=== PATIENT | female | born 1960 | race African-American/Black ===

== ENCOUNTER 2020-06-22 13:51 | Outpatient (REF) | payer OTHER, SELFPAY ==
--- NOTE | ~2020-06-22 | MM_ITS ---
EXAMINATION: MM DIAGNOSTIC DIGITAL BREAST TOMOSYNTHESIS, BILATERAL CLINICAL INFORMATION: Due for yearly. Prior mammography had finding on right for recall, not performed due to other health issues at that time. Age 60, no known family history breast cancer. The lifetime risk of breast cancer based on the Tyrer-Cuzick Model is 5%. COMPARISON: Mammography: 02/15/2019 (BI-RADS 0), outside mammography 08/07/2017 ([facility]). TECHNIQUE: Digital breast tomosynthesis is performed in both the craniocaudal and mediolateral oblique views along with computer-aided detection (CAD). Synthesized 2D images are generated from the tomosynthesis. Additional bilateral CC and additional bilateral MLO views are provided. FINDINGS: The breasts are almost entirely fatty (ACR BI-RADS breast composition Category a). Background stromal and fibroglandular densities are unremarkable. There are scattered bilateral round and rim calcifications again seen. There is no developing density or interval mass or architectural abnormality. The finding anterior upper outer right breast noted on prior exam 2019 is no longer demonstrated. This finding was suspected to possibly represent sequela from trauma at time of prior exam. There is no skin thickening or coarsening of the Ajay's ligaments. The axilla are unremarkable. Results are discussed with the patient at time of visit. MM/MM tomosynthesis diagnostic BI IMPRESSION: 1. No mammographic evidence of malignancy. 2. The finding anterior upper outer right breast prompting recall in 2019 is no longer demonstrated. ASSESSMENT: BI-RADS 2: Benign RECOMMENDATION: Routine annual mammography screening. This patient's information was entered into a reminder system with a target due date for their next mammogram.
== END 2020-06-22 13:52 | disposition home or self-care (01) ==
LOC: HO.MAMMO 13:51
PROVIDERS: Visit Provider Internal Medicine
DX: Z12.31 Encounter for screening mammogram for malignant neoplasm of breast (principal)
CPT/HCPCS: 77062; 77066

== ENCOUNTER 2021-07-03 07:32 | Outpatient (REF) | payer OTHER, SELFPAY ==
--- NOTE | ~2021-07-03 | MM_ITS ---
EXAMINATION: MM SCREENING DIGITAL BREAST TOMOSYNTHESIS, BILATERAL CLINICAL INFORMATION: Screening. Asymptomatic. The lifetime risk of breast cancer based on the Tyrer-Cuzick Model is 5%. COMPARISON: Mammography: 06/22/2020, 02/15/2019; outside exam 08/07/2017 ([facility] TECHNIQUE: Digital breast tomosynthesis is performed in both the craniocaudal and mediolateral oblique views along with computer-aided detection (CAD). Synthesized 2D images are generated from the tomosynthesis. Additional views are provided: Right CC x2, left CC. FINDINGS: There are scattered areas of fibroglandular density (ACR BI-RADS breast composition Category b). There are no significant masses, abnormal calcifications, or other abnormalities. Parenchymal pattern is similar to prior studies. No developing density or architectural abnormality. There are scattered benign round and rim calcifications again seen. The axilla are unremarkable. MM/MM tomosynthesis screening BI IMPRESSION: No mammographic evidence of malignancy. ASSESSMENT: BI-RADS 1: Negative RECOMMENDATION: Routine annual mammography screening. This patient's information was entered into a reminder system with a target due date for their next mammogram.
--- NOTE | ~2021-07-03 | MM_ITS ---
EXAMINATION: BONE DENSITOMETRY CLINICAL INDICATION: Menopause. COMPARISON: None (current study represents initial baseline exam). TECHNIQUE: Using a [employer] DXA System (software version: 13.1) manufactured by [employer], dual-energy x-ray absorptiometry was performed of the lumbar spine and left hip. The images are of good technical quality. Summary results are attached. FINDINGS: AP SPINE L1-L2 (excluding L3 and L4): The data of L1-L4 has been changed to exclude the L3 and L4 vertebral bodies, because hardware at these levels may cause overestimation of lumbar spine density. BMD 1.153 g/cm2, Z-score -0.8, T-score -0.1, normal. LEFT FEMUR, NECK: BMD 0.709 g/cm2, Z-score -2.8, T-score -2.4, osteopenia. LEFT FEMUR, TOTAL: BMD 0.708 g/cm2, Z-score -3.3, T-score -2.4, osteopenia. IDENTIFIED RISK FACTORS: Rheumatoid arthritis, tobacco use (current smoker), recurrent falls. Early menopause, secondary osteoporosis, thiazide, hysterectomy. HISTORY OF FRACTURE: Spine, femur/hip. MEDICATIONS: Calcium supplements or multivitamin, vitamin D. MM/XR DEXA axial skeleton IMPRESSION: 1. DIAGNOSIS: Osteopenia based on the lowest T-score value of -2.4 in both the femoral neck and total femur applying World Health Organization criteria. 2. 10-YEAR FRACTURE RISK PREDICTION, FRAX: Major osteoporotic fracture (clinical spine, forearm, hip or shoulder) 9.7%. Hip fracture 2.7%. 3. Treatment Recommendations: NOF guidelines recommend consideration for treatment in postmenopausal women and men age 50 and older presenting with the following: -A hip or vertebral (clinical or morphometric) fracture. -T-score less than or equal to -2.5 at the femoral neck or spine after appropriate evaluation to exclude secondary causes. -Low bone mass at the hip or spine and a 10-year fracture probability by FRAX of greater than or equal to 3% for hip fracture or greater than or equal to 20% for major osteoporotic fracture based on the [place] adapted WHO algorithm. 4. Other Recommendations: All treatment decisions require clinical judgment and consideration of individual patient factors, including patient preferences, comorbidities, previous drug use, risk factors not captured in the FRAX model (e.g. frailty, falls, vitamin D deficiency, increased bone turnover, interval significant decline in bone density) and possible under or overestimation of fracture risk by FRAX. Additional medical evaluation for secondary cause of low bone mineral density may be appropriate. FUTURE SCAN RECOMMENDATION: People with diagnosed cases of osteoporosis or at high risk for fracture should have regular bone mineral density tests. For patients eligible for Medicare, routine testing is allowed once every 2 years. The testing frequency can be increased to one year for patients who have rapidly progressing disease, those who are receiving or discontinuing medical therapy to restore bone mass, or have additional risk factors.
== END 2021-07-03 07:33 | disposition home or self-care (01) ==
LOC: HO.MAMMO 07:32
PROVIDERS: PCP Internal Medicine; Visit Provider Pediatrics
DX: Z12.31 Encounter for screening mammogram for malignant neoplasm of breast (principal); Z13.820 Encounter for screening for osteoporosis; Z78.0 Asymptomatic menopausal state; M85.80 Other specified disorders of bone density and structure, unspecified site
CPT/HCPCS: 77063; 77067; 77080

== ENCOUNTER → 2022-04-23 08:41 | Outpatient (BNVA) | payer OTHER, SELFPAY | PROVIDERS: PCP Internal Medicine; Visit Provider Internal Medicine | DX: R07.2 Precordial pain (principal); R06.02 Shortness of breath; E78.5 Hyperlipidemia, unspecified; I10 Essential (primary) hypertension; E66.01 Morbid (severe) obesity due to excess calories; Z68.43 Body mass index [BMI] 50.0-59.9, adult | CPT/HCPCS: 93005; 99202 ==

== ENCOUNTER → 2022-05-13 07:43 | Outpatient (REF) | payer OTHER, SELFPAY ==
--- NOTE | ~2022-05-13 | NM_ITS ---
Myocardial perfusion study Indication: Angina pectoris to evaluate for myocardial ischemia Technique: The patient was brought in for a Lexiscan perfusion study on 05/13/2022. Patient performed low-level exercise and was injected 0.4 mg of Lexiscan intravenously. Within a minute of injection, 45 mCi of sestamibi was given intravenously. Images were obtained using the SPECT gamma camera interlaced with the gating device. Images were obtained in supine position. Resting perfusion study was performed on 05/14/2022. Patient was administered 45 mCi of sestamibi intravenously at rest. Images were then obtained in supine position. Images obtained with and without CT attenuation. Total DLP 179 mGy-cm. Images were processed with the software and compared side to side in short axis, horizontal long axis and vertical long axis views. Findings: The stress perfusion study showed non attenuated images show some thinning and reduced uptake in the basal anterior and mid anterior wall of the LV myocardium. Remainder of the LV myocardium is normally perfused. Attenuation corrected images show minimally reduced uptake in the apex of the LV myocardium.. The gated study shows normal LV systolic function with calculated LVEF of 61%. LV cavity is normal in size. The gated study shows normal systolic wall thickening and contraction of segments. Resting study shows no change in perfusion pattern compared to stress perfusion study. Gating at rest reveals normal systolic wall motion with ejection fraction at 58%. The findings are consistent with normal myocardial perfusion. NM/NM giuseppe perf SPECT rest & str Impression: 1. Myocardial perfusion imaging study shows normal myocardial perfusion 2. Gated LVEF is 61% 3. Transient ischemic dilatation not present EKG is nondiagnostic for ischemia
--- NOTE | 2022-05-13 07:48 | CA_ITS ---
Acquisition Time: 2022-05-13 09:23:38 Total Exercise Time: 00:02:00 Test Indications: CHEST PAIN, SOB Medications: Protocol: LEXISCAN Max HR: 121 BPM 75% of Pred: 160 BPM Max BP: 122/072 mmHG Max Work Load: 1.0 METS Pharmacological stress test with Lexiscan injection, while sitting and kicking her legs, with mild sob, no chest discomfort, without arrythmia, with normotensive response to injection, with nondiagnostic EKG for ischemia. In recovery she was treated with Aminophylline 75mg IVP to reverse Lexiscan. Nuclear images pending. Test reviewed with Dr Antonio Referred By: Horacio Woodson Overread By: SOILA DUKE
--- NOTE | 2022-05-13 07:48 | CA_ITS ---
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 Technically limited study despite use of contrast agent 2. Normal LV systolic function with impaired relaxation filling pattern next 3. Limited visualization of cardiac valves with normal cardiac valvular Doppler 4. Normal RV systolic pressure Findings Procedure Information Contrast agent, definity, is being given per protocol without apparent complications. The quality of the study was technically difficult. The study quality is limited by patients body habitus. Left Ventricle Normal left ventricular size, thickness, and systolic function. The visually estimated ejection fraction is between 55-60%. Spectral Doppler is indicative of an impaired relaxation filling pattern. Right Ventricle The right ventricle was not well visualized. Atria The left atrium was not well visualized. Interatrial shunt cannot be excluded. The right atrium was not well visualized. Aortic Valve The aortic valve was not well visualized. There is no aortic valve stenosis. There is no aortic valve regurgitation. Mitral Valve The mitral valve was not well visualized. There is trace mitral valve regurgitation. There is no mitral valve stenosis. Pulmonic Valve The pulmonic valve was not well visualized. Tricuspid Valve Likely normal tricuspid valve structure and function. There is trace tricuspid valve regurgitation. The right ventricular systolic pressure is normal. The right ventricular systolic pressure is 34 mmHg. There is no evidence of pulmonary hypertension. Great Vessels All visible segments of the aorta are normal in size. The pulmonary artery was not well visualized. The asc aorta is normal in size. Venous The inferior vena cava is normal in size. Pericardium/Pleural The pericardium was not well visualized. Prior Study Comparison No prior study available for comparison. Measurements 2D Linear Measurements IVSd: 1.39 0.6-0.9/0.6-1.0 cm LVIDd: 4.52 3.9-5.3/4.2-5.9 cm LVIDd Index: 2.00 2.4-3.2/2.2-3.1 cm/m2 LVIDs: 3.28 2.0-3.6 cm LVPWd: 0.73 0.7-1.1 cm LA Diam: 3.40 2.7-3.8/3.0-4.0 cm LAIDs Index: 1.50 1.5-2.3 cm/m2 LV Mass: 208.29 67-162/88-224 g LV Mass Index: 92.16 43-95/49-115 g/m2 LVOT Diam: 2.20 3.0+(-)1.3 cm 2D Systolic Function EF 4C: 55.80 >55% EF 2C: 52.60 >55% EF BiP: 55.30 >55% Mitral Valve MV Pk E: 0.56 MV PK A: 0.78 MV Decel Time: 165.00 E/A: 0.70 E'Lateral: 8.59 E'Medial: 5.00 E/E' Med: 11.10 E/E' Lat: 6.50 PHT: 48.00 MVA PHT: 4.58 Decel Hawkins: 3.37 Aortic Valve AoV Pk Arnulfo: 1.17 AoV Pk Grad: 5.00 ARACELY: 3.05 LVOT LVOT Pk Arnulfo: 0.94 LVOT Mn Arnulfo: 0.60 LVOT VTI: 0.16 LVOT Pk Grad: 4.00 LVOT Mn Grad: 2.00 LVOT Diam: 2.20 LVOT Area: 3.80 Diastolic Function MV Pk E: 0.56 MV Pk A: 0.78 E/A: 0.70 E'Medial: 5.00 E/E' Med: 11.10 E' Laterial: 8.59 E/E' Lat: 6.50 Right Ventricle TVS' Arnulfo: 10.10 Tricuspid Valve TR Pk Arnulfo: 2.80 TR Pk Grad: 31.00 RA Press: 3.00 RVSP: 34.00 Great Vessels Aorta Sinus of Valsalva: 3.40 2.0-3.5 cm Ao Asc: 3.10 2.1-3.4 cm Pulmonary Valve PV Pk Arnulfo: 0.84 Peak PV Grad: 3.00 Updated in Other Vendor System with Status of Final Finesse Antonio MD electronically signed on 05/14/2022 5:03:13 PM with status of Final
== END ==
LOC: HO.CARD 07:43
PROVIDERS: PCP Internal Medicine; Visit Provider Internal Medicine
DX: R07.2 Precordial pain (principal); I20.9 Angina pectoris, unspecified; R06.02 Shortness of breath
CPT/HCPCS: 78452; 93017; 93306; A9500; J0280; J2785; Q9957

== ENCOUNTER 2022-07-08 09:30 | Outpatient (REF) | payer OTHER, SELFPAY ==
--- NOTE | ~2022-07-08 | MM_ITS ---
EXAMINATION: MM SCREENING DIGITAL BREAST TOMOSYNTHESIS, BILATERAL CLINICAL INFORMATION: Screening. Asymptomatic. The lifetime risk of breast cancer based on the Tyrer-Cuzick Model is 5%. COMPARISON: Mammography: 07/03/2021, 06/22/2020, 02/15/2019 TECHNIQUE: Digital breast tomosynthesis is performed in both the craniocaudal and mediolateral oblique views along with computer-aided detection (CAD). Synthesized 2D images are generated from the tomosynthesis. Additional bilateral CC and additional bilateral MLO views are provided. FINDINGS: There are scattered areas of fibroglandular density (ACR BI-RADS breast composition Category b). Breast tissue composition borders on predominantly fatty. Background stromal and minor fibroglandular densities are stable. There is no developing density or architectural abnormality. No abnormal calcifications. There are no significant masses, abnormal calcifications, or other abnormalities. The axilla and skin contours are unremarkable. MM/MM tomosynthesis screening BI IMPRESSION: No mammographic evidence of malignancy. ASSESSMENT: BI-RADS 1: Negative RECOMMENDATION: Routine annual mammography screening. This patient's information was entered into a reminder system with a target due date for their next mammogram.
== END 2022-07-08 09:31 | disposition home or self-care (01) ==
LOC: HO.MAMMO 09:30
PROVIDERS: PCP Internal Medicine; Visit Provider Internal Medicine
DX: Z12.31 Encounter for screening mammogram for malignant neoplasm of breast (principal)
CPT/HCPCS: 77063; 77067

== ENCOUNTER → 2022-07-09 10:20 | Outpatient (BNVA) | payer OTHER, SELFPAY | PROVIDERS: PCP Internal Medicine; Referring Provider Internal Medicine; Visit Provider Internal Medicine | DX: R07.2 Precordial pain (principal); R06.02 Shortness of breath; I10 Essential (primary) hypertension; E78.5 Hyperlipidemia, unspecified; E66.01 Morbid (severe) obesity due to excess calories; Z68.43 Body mass index [BMI] 50.0-59.9, adult | CPT/HCPCS: 99212 ==

== ENCOUNTER → 2022-07-25 12:56 | Outpatient (BNVA) | payer OTHER, SELFPAY | PROVIDERS: PCP Internal Medicine; Referring Provider Internal Medicine; Visit Provider Physician Assistant Surgical ==

== ENCOUNTER → 2022-08-26 13:03 | Outpatient (BNVA) | payer OTHER, SELFPAY | PROVIDERS: PCP Internal Medicine; Visit Provider Physician Assistant | DX: E66.01 Morbid (severe) obesity due to excess calories (principal); E78.5 Hyperlipidemia, unspecified; E05.90 Thyrotoxicosis, unspecified without thyrotoxic crisis or storm; E03.9 Hypothyroidism, unspecified; I10 Essential (primary) hypertension; M32.9 Systemic lupus erythematosus, unspecified; M06.9 Rheumatoid arthritis, unspecified; M79.7 Fibromyalgia; R06.02 Shortness of breath; Z90.3 Acquired absence of stomach [part of]; Z68.42 Body mass index [BMI] 45.0-49.9, adult | CPT/HCPCS: 99202 ==

== ENCOUNTER → 2022-08-29 23:59 | Outpatient (BNV) | payer OTHER, SELFPAY | PROVIDERS: PCP Internal Medicine; Visit Provider Internal Medicine Cardiovascular Disease | DX: I20.0 Unstable angina (principal) | CPT/HCPCS: 93458; 99152 ==

== ENCOUNTER 2022-09-05 13:47 | Outpatient (REF) | payer OTHER, SELFPAY ==
[2022-09-05 14:14] LABS: Basophils Absolute Auto 0.1 X10*3/uL (0.0-0.2); Basophils Percent Auto 1.7 % (0-2); Eosinophils Absolute Auto 0.7 X10*3/uL (0.0-0.4); Eosinophils Percent Auto 9.7 % (0-4); Hematocrit 40.6 % (37.0-47.0); Hemoglobin 12.4 g/dl (12.0-16.0); Imm Gran Abs Auto 0.01 X10*3/uL (0.00-0.03); Imm Gran Pct Auto 0.1 % (0.0-0.4); Lymphocytes Absolute Auto 3.2 X10*3/uL (1.2-4.9); Lymphocytes Percent Auto 44.5 % (20-40); MANUAL DIFF FLAG NO; Mean Corpuscular HGB Conc 30.5 g/dl (31.0-35.0); Mean Corpuscular Hemoglobin 27.9 pg (27.0-33.0); Mean Corpuscular Volume 91.4 fL (80.0-98.0); Mean Platelet Volume 9.8 fL (9.4-12.3); Monocytes Absolute Auto 0.6 X10*3/uL (0.1-1.2); Monocytes Percent Auto 8.6 % (2-11); Neutrophils Absolute Auto 2.6 x10*3/uL (2.0-8.3); Neutrophils Percent Auto 35.4 % (45-73); Platelet Count 220 X10*3/uL (160-400); Red Blood Count 4.44 X10*6/uL (4.20-5.50); Red Cell Distribution Width 13.3 % (11.0-16.0); White Blood Count 7.2 X10*3/uL (4.8-10.8)
[2022-09-05 14:27] LABS: Estimated Average Glucose 126 mg/dL
[2022-09-05 14:44] LABS: Alanine Aminotransferase 17 U/L (0-31); Alkaline Phosphatase 63 U/L (39-117); Anion Gap 14 (12-20); Aspartate Amino Transferase 22 U/L (5-31); Bilirubin Total 0.3 mg/dL (0.0-1.0); Blood Urea Nitrogen 15 mg/dL (9-16); C Reactive Protein 0.16 mg/dL (< or = 0.50); Calcium 9.9 mg/dL (8.4-10.2); Carbon Dioxide 25 mmol/L (22-29); Chloride 108 mmol/L (96-108); Cholesterol 141 mg/dL; Estimated Glomerular Filt Rate 52; Glucose Random 95 mg/dL (60-115); HDL Cholesterol 65 mg/dL; Iron 98 mcg/dL (30-160); LDL Cholesterol Calculated 54 mg/dl; Percent Iron Saturation 34 % (15-50); Potassium 4.4 mmol/L (3.3-5.1); Sodium 143 mmol/L (135-145); Total Iron Binding Capacity 290 mcg/dL (228-428); Total Protein 6.6 g/dL (6.5-8.0); Triglycerides 114 mg/dL; Unsaturated Iron Binding 192 ug/dL
[2022-09-05 14:53] LABS: Ferritin 88 ng/mL (10-250); Insulin 38 uU/mL (2-29); TSH reflex Free T4 2.05 uIU/mL (0.32-4.0); Vitamin D 25-OH Total 37.6 ng/mL (>30)
[2022-09-05 15:07] LABS: Vitamin B12 904 pg/mL (200-900)
[2022-09-06 17:43] LABS: Calcium (PTHI) 9.4 mg/dL (8.6-10.4); PTHI 35 pg/mL (16-77)
== END 2022-09-05 13:48 | disposition home or self-care (01) ==
LOC: HO.LNP 13:47
PROVIDERS: Visit Provider Physician Assistant
DX: E03.9 Hypothyroidism, unspecified (principal); E66.01 Morbid (severe) obesity due to excess calories; Z90.3 Acquired absence of stomach [part of]
CPT/HCPCS: 80053; 80061; 82306; 82607; 82728; 82746; 83036; 83525; 83540; 83970; 84443; 85025; 86140

== ENCOUNTER 2022-09-06 07:31 | Outpatient (REF) | payer OTHER, SELFPAY ==
--- NOTE | ~2022-09-06 | FL_ITS ---
EXAMINATION: Upper GI Gastrografin study CLINICAL INFORMATION: Morbid severe obesity. Patient allergic to iodine and strawberries. COMPARISON: None available. TECHNIQUE: Routine upper GI exam was performed following oral administration of Gastrografin in upright and lying position. FINDINGS: Following oral administration of Gastrografin there is normal protrusion bolus from the oral cavity through the pharynx, esophagus into stomach without obstruction, narrowing or stricture. On placing patient supine a small gastric stomach is noted from previous gastric sleeve surgery. The mucosal pattern of the stomach, duodenal bulb and the sweep is normal. There is small hiatal hernia and mild reflux. Otherwise rest the course, caliber of the stomach and the duodenum is normal. FLUOROSCOPY TIME: 0.9 minutes DOSE AREA PRODUCT: 28.732 uGy-m2 (microgray-meter squared) FL/FL upper GI series IMPRESSION: Evidence of previous gastric sleeve surgery with small sliding hiatal hernia. Otherwise upper GI Gastrografin study is unremarkable.
== END 2022-09-06 07:32 | disposition home or self-care (01) ==
LOC: HO.XRAY 07:31
PROVIDERS: PCP Internal Medicine; Visit Provider Physician Assistant
DX: E66.01 Morbid (severe) obesity due to excess calories (principal); Z90.3 Acquired absence of stomach [part of]; Z71.3 Dietary counseling and surveillance
CPT/HCPCS: 74240; 97802

== ENCOUNTER → 2022-09-06 07:31 | Outpatient (BNV) | payer OTHER, SELFPAY | PROVIDERS: PCP Internal Medicine; Visit Provider Radiology Diagnostic Radiology | DX: E66.9 Obesity, unspecified (principal) | CPT/HCPCS: 74240 ==

== ENCOUNTER 2022-09-06 08:09 | Outpatient (AMB) | payer OTHER, SELFPAY ==
--- NOTE | 2022-09-06 08:46 | A.OFFVIS_ITS ---
Intake Intake Visit Reasons: (OV) Initial Nutrition SWL Allergies aspirin [ASA] Allergy (Unknown, Verified 08/26/22 13:07) UNKNOWN diclofenac [DICLOFENAC] Allergy (Unknown, Verified 08/26/22 13:07) AFFECTED KIDNEYS latex [LATEX] Allergy (Unknown, Verified 08/26/22 13:07) HIVES naproxen [From ALEVE] Allergy (Unknown, Verified 08/26/22 13:07) KIDNEY ISSUES NSAIDS (Non-Steroidal Anti-Inflamma [NSAIDS (NON-STEROIDAL ANTI-INFLAMMA] Allergy (Unknown, Verified 08/26/22 13:07) AFFECT KIDNEYS nut - unspecified [NUTS] Allergy (Unknown, Verified 08/26/22 13:07) SWELLING orange [ORANGES] Allergy (Unknown, Verified 08/26/22 13:07) UNKNOWN penicillin V Allergy (Unknown, Verified 08/26/22 13:07) Unknown Penicillins [PENICILLINS] Allergy (Unknown, Verified 08/26/22 13:07) UNKNOWN strawberry [STRAWBERRY] Allergy (Unknown, Verified 08/26/22 13:07) UNKNOWN zolpidem [From AMBIEN] Allergy (Unknown, Verified 08/26/22 13:07) UNKNOWN Aspir-81 Allergy (Intermediate, Uncoded 07/09/22 11:57) Hives HPI Nutrition Presentation Details [employer]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 Appt today was supposed to be in office but she had upper GI and became sick. had to go home and changed to telehealth appt. LSG 2012 another facility - pt interested in revision Reason for consult elevated BMI Diet Assmnt Details breakfast: 1 egg, cannot physically eat 2 salad with 1 egg - doesn't always have meat prepared. 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 Her pre op weight was 356 lbss and lowest weight was 188 lbs. She experienced weight regain since 2020 and now has nausea whenever lying down and will have emesis if eats after 4pm. + GERD also. She is interested in revision bariatric surgery Dietary counseling reduction Diagnosis Nutrition problem #1 overweight/obesity As related to (etiology) #1 excess energy intake and physical inactivity As evidenced by (sign/symptom) #1 high BMI Monitoring/Goals Nutrition problem monitoring total energy intake, level of knowledge/skill, total PRO intake, total CHO intake and weight Outcome progress progressing Learning/Education Readiness to learn good Stages of change action Most Recent Diabetes Results: Cholesterol 141 mg/dL 09/05/22 HDL Cholesterol 65 mg/dL 09/05/22 Triglycerides 114 mg/dL 09/05/22 Creatinine 1.07 mg/dL (0.5-1.4) 09/05/22 Blood Urea Nitrogen 15 mg/dL (9-16) 09/05/22 Sodium 143 mmol/L (135-145) 09/05/22 Potassium 4.4 mmol/L (3.3-5.1) 09/05/22 Chloride 108 mmol/L (96-108) 09/05/22 Carbon Dioxide 25 mmol/L (22-29) 09/05/22 Calcium 9.9 mg/dL (8.4-10.2) 09/05/22 AST 22 U/L (5-31) 09/05/22 ALT 17 U/L (0-31) 09/05/22 Total Protein 6.6 g/dL (6.5-8.0) 09/05/22 Albumin 4.0 g/dL (3.5-5.0) 09/05/22 [facility] Medical History (Updated 08/26/22 @ 14:01 by Domitila Lewis PA-C) Essential hypertension Hyperthyroidism Morbid (severe) obesity due to excess calories Other and unspecified hyperlipidemia Surgical History (Updated 08/28/22 @ 08:10 by Kirstin Morrison CMA) H/O gastric sleeve History of hernia repair History of right hip replacement History of spinal surgery History of tonsillectomy Family History Father No problems noted. Mother Cardiomyopathy Sister Leukemia COVID Brother Lung disease Sister Kidney disease Son Cardiomyopathy Daughter No problems noted. Daughter Lupus Daughter Autism Polycystic kidney Social History Alcohol intake: never Patient Tobacco Use Status: Former Tobacco user Quit Date: 11/2021 Years Smoked: 15 +/- Assessment & Plan Assessment & Plan (1) Morbid (severe) obesity due to excess calories: Code(s): E66.01 - Morbid (severe) obesity due to excess calories Patient Instructions: Off to a good start. will discuss with PA if pt can incorporate shakes. Pt will be seen again mid-late september Telehealth Telehealth Location of provider rendering services: practice address Location of patient: address on file Patient Identification confirmed using: Name, : Yes Telehealth method: voice only Patient verbally consented to treatment: Yes Patient verbally consented to billing insurance company: Yes Patient informed of any privacy concerns related to visit: Yes Minutes spent on Phone/Video with Pt.: 25 Coding Level of Care Code Nutr Indiv Intake (21349) Diagnoses Morbid (severe) obesity due to excess calories E66.01 Time Spent (min) 25
== END 2022-09-06 12:19 | disposition home or self-care (01) ==
PROVIDERS: PCP Internal Medicine; Visit Provider Dietitian, Registered
DX: E66.01 Morbid (severe) obesity due to excess calories (principal)

== ENCOUNTER 2022-09-16 10:12 | Outpatient (REF) | payer OTHER, SELFPAY ==
[2022-09-16 10:46] LABS: Hematocrit 40.8 % (37.0-47.0); Hemoglobin 12.4 g/dl (12.0-16.0); Mean Corpuscular HGB Conc 30.4 g/dl (31.0-35.0); Mean Corpuscular Hemoglobin 28.1 pg (27.0-33.0); Mean Corpuscular Volume 92.5 fL (80.0-98.0); Mean Platelet Volume 9.4 fL (9.4-12.3); Platelet Count 229 X10*3/uL (160-400); Red Blood Count 4.41 X10*6/uL (4.20-5.50); Red Cell Distribution Width 13.6 % (11.0-16.0); White Blood Count 8.4 X10*3/uL (4.8-10.8)
[2022-09-16 10:55] LABS: INTERNATIONAL NORM RATIO 0.9 (0.9-1.1)
[2022-09-16 11:07] LABS: Anion Gap 13 (12-20); Blood Urea Nitrogen 20 mg/dL (9-16); Calcium 10.2 mg/dL (8.4-10.2); Carbon Dioxide 26 mmol/L (22-29); Chloride 107 mmol/L (96-108); Estimated Glomerular Filt Rate 55; Glucose Random 95 mg/dL (60-115); Potassium 4.5 mmol/L (3.3-5.1); Sodium 141 mmol/L (135-145)
[2022-09-20 03:34] LABS: Vitamin A 93 mcg/dL (38-98)
[2022-09-20 17:54] LABS: Zinc 71 mcg/dL (60-130)
[2022-09-23 12:14] LABS: Vitamin B1 34 nmol/L (8-30)
== END 2022-09-16 10:13 | disposition home or self-care (01) ==
LOC: HO.LAB 10:12
PROVIDERS: Internal Medicine; PCP Internal Medicine; Visit Provider Physician Assistant
DX: I25.10 Atherosclerotic heart disease of native coronary artery without angina pectoris (principal); I10 Essential (primary) hypertension; R06.02 Shortness of breath; E66.01 Morbid (severe) obesity due to excess calories; E03.9 Hypothyroidism, unspecified; R07.2 Precordial pain; E78.5 Hyperlipidemia, unspecified; Z87.891 Personal history of nicotine dependence; Z98.84 Bariatric surgery status; Z79.899 Other long term (current) drug therapy
CPT/HCPCS: 36415; 80048; 84425; 84590; 84630; 85027; 85610; 99212

== ENCOUNTER 2022-09-16 10:29 | Outpatient (AMB) | payer OTHER, SELFPAY ==
[2022-09-16 10:34] VITALS: BP 120/86; PULSE 103; BMI 49.1
--- NOTE | 2022-09-16 10:34 | A.OFFVIS_ITS ---
Intake Vital Signs 09/16/22 10:34 Height 5 ft 3 in Weight 277 lb 5.464 oz BMI 49.1 BP 120/86 Blood Pressure Location Lt brachial Position Sitting Pulse 103 H Intake Visit Reasons: follow up after testing Intake Note: follow up Single Stroke Preformer Required: No Accompanied by: Self / Same As Patient Allergies aspirin [ASA] Allergy (Unknown, Verified 09/16/22 10:37) UNKNOWN diclofenac [DICLOFENAC] Allergy (Unknown, Verified 09/16/22 10:37) AFFECTED KIDNEYS latex [LATEX] Allergy (Unknown, Verified 09/16/22 10:37) HIVES naproxen [From ALEVE] Allergy (Unknown, Verified 09/16/22 10:37) KIDNEY ISSUES NSAIDS (Non-Steroidal Anti-Inflamma [NSAIDS (NON-STEROIDAL ANTI-INFLAMMA] Allergy (Unknown, Verified 09/16/22 10:37) AFFECT KIDNEYS nut - unspecified [NUTS] Allergy (Unknown, Verified 09/16/22 10:37) SWELLING orange [ORANGES] Allergy (Unknown, Verified 09/16/22 10:37) UNKNOWN penicillin V Allergy (Unknown, Verified 09/16/22 10:37) Unknown Penicillins [PENICILLINS] Allergy (Unknown, Verified 09/16/22 10:37) UNKNOWN strawberry [STRAWBERRY] Allergy (Unknown, Verified 09/16/22 10:37) UNKNOWN zolpidem [From AMBIEN] Allergy (Unknown, Verified 09/16/22 10:37) UNKNOWN Aspir-81 Allergy (Intermediate, Uncoded 09/16/22 10:37) Hives Medication List - Last Reconciled 09/16/22 by Horacio Woodson MD acetaminophen ER 650 mg PO TID acetaminophen-codeine 300-30 mg 1 tab PO Q8H PRN cholecalciferol (vitamin D3) 25 mcg PO DAILY diphenhydramine HCl 50 mg PO BEDTIME levothyroxine 112 mcg PO DAILY lidocaine-prilocaine 2.5-2.5 % grams topical DAILY losartan 100 mg PO DAILY magnesium oxide 250 mg PO DAILY metaxalone 800 mg PO BID PRN pantoprazole 20 mg PO DAILY rosuvastatin 20 mg PO BEDTIME spironolactone 25 mg PO DAILY trazodone 100 mg PO BEDTIME HPI HPI Comments History of Present Illness Details Hilda returns for follow-up. Recently seen in consultation regarding abnormal EKG. Multiple medical comorbidities including obesity, hypertension, dyslipidemia, history of smoking. Per patient, whenever she is doing anything active like walking, sensation chest tightness as well as shortness of breath. Relieved by rest. She underwent an echocardiogram and stress test but they were unremarkable. Any case, because of symptoms she underwent cardiac catheterization which did not show any significant coronary disease. Otherwise, there is a substantial weight gain over the last couple of years. She has gained almost 100 lb. Hence that may be the reason why she is feeling all of this. Prior history of gastric sleeve surgery around 2011. [facility] Medical History (Updated 08/26/22 @ 14:01 by Domitila Lewis PA-C) Essential hypertension Hyperthyroidism Morbid (severe) obesity due to excess calories Other and unspecified hyperlipidemia Surgical History H/O gastric sleeve History of hernia repair History of right hip replacement History of spinal surgery History of tonsillectomy Family History Father No problems noted. Mother Cardiomyopathy Sister Leukemia COVID Brother Lung disease Sister Kidney disease Son Cardiomyopathy Daughter No problems noted. Daughter Lupus Daughter Autism Polycystic kidney Social History Alcohol intake: never Patient Tobacco Use Status: Former Tobacco user Quit Date: 11/2021 Years Smoked: 15 +/- Review of Systems Const Denies weakness ENT Denies dizziness Card Denies chest pain, Denies chest pain with activity, Denies syncope, Denies rapid heart rate, Denies pedal edema, Denies edema, Denies leg edema, Denies lightheadedness, Denies palpitations, Denies dyspnea, Denies dyspnea on exertion and Denies orthopnea Resp Denies cough, Denies dyspnea and Denies dyspnea on exertion GI Denies hematochezia and Denies change in stool character Musc Denies abnormal gait, Denies muscle cramps, Denies muscle weakness, Denies numbness, Denies radiating pain into limb and Denies tingling Neuro Denies abnormal gait, Denies dizziness, Denies syncope, Denies numbness, Denies tingling and Denies weakness Endo Denies palpitations Physical Exam Vital Signs: Last Vital Signs Pulse 103 H 09/16/22 10:34 BP 120/86 09/16/22 10:34 BMI result Body Mass Index 49.1 Const General: comfortable and no acute distress Orientation/consciousness: patient oriented x3 HEENT Other: Unremarkable Head: Yes normal to inspection Neck Neck: Yes normal visual inspection Chest Chest palpation & inspection: normal inspection of the chest Resp Auscultation: clear to auscultation bilaterally Cardio Palpation: normal PMI Heart sounds: S1 normal heart sound present, S2 normal heart sound present, no gallops, no murmurs and no rubs GI Palpation (GI): Soft to palpation Back/Spine/Pelvis Other: unremarkable Skin General skin exam: no rashes or lesions noted Neuro General: patient oriented x3 Extrem General: Yes normal to inspection Psych Mental Status: mental status grossly normal Assessment & Plan Assessment & Plan (1) SOB (shortness of breath): Code(s): R06.02 - Shortness of breath (2) Morbid (severe) obesity due to excess calories: Code(s): E66.01 - Morbid (severe) obesity due to excess calories (3) Essential hypertension: Code(s): I10 - Essential (primary) hypertension (4) Other and unspecified hyperlipidemia: Code(s): E78.5 - Hyperlipidemia, unspecified Plan Cardiac studies reviewed. Baseline EKG has mild sinus tachycardia 100/Min. No significant ST-T changes; normal MS. Borderline prolongation corrected QT at 482 milliseconds. Echocardiogram technically limited because of body habitus in spite of contrast use. LVEF 55-60%. Mild diastolic dysfunction. No significant valvular issues within limits of visualization. No significant pulmonary hypertension. Pharmacological perfusion imaging is unremarkable. In the cardiac catheterization, mild disease in the mid LAD but otherwise normal coronary arteries. Mild elevation LVEDP. No gradient across aortic valve. Overall, no clear cardiac etiology for symptoms. As she has gained 100 lb in weight in the last couple of years that may be the main reason for all of this. We discussed about this in great detail. Main strategy to deal with her symptoms should be losing weight and go back to her prior weight of around 180 lb. She will make every attempt to achieve this goal. That will also help her other risk factors including hypertension dyslipidemia. She will keep us posted with her progress and any ongoing concerns. Total time spent including review of all the above data, counseling, documentation, coordination of care-32 minutes. Coding Level of Care Code Est Pt Level 4 (37400) Diagnoses SOB (shortness of breath) R06.02 Morbid (severe) obesity due to excess calories E66.01 Essential hypertension I10 Other and unspecified hyperlipidemia E78.5
== END 2022-09-16 10:50 | disposition home or self-care (01) ==
PROVIDERS: Visit Provider Internal Medicine
DX: R06.02 Shortness of breath (principal); E66.01 Morbid (severe) obesity due to excess calories; I10 Essential (primary) hypertension; E78.5 Hyperlipidemia, unspecified
CPT/HCPCS: 99214

== ENCOUNTER 2022-09-24 09:27 | Outpatient (AMB) | payer OTHER, SELFPAY ==
--- NOTE | 2022-09-24 09:40 | A.OFFVIS_ITS ---
Intake VS Expanded 09/24/22 09:46 Height 5 ft 3 in Weight 271 lb 12.8 oz BMI 48.1 BP 129/80 Blood Pressure Location Rt brachial Blood Pressure Position Sitting Pulse 86 Pulse Source Pulse Oximeter Temp 97.7 F Temperature Source Temporal Artery Scan Pulse Oximetry 95 Oxygen Delivery Method Room Air Body Fat 150.8 Body Fat Percentage 55.5 Free Fat Mass 120.8 Muscle Mass 114.6 Visceral Mass 21.0 Water Mass 85.8 BMR 1,773 Intake Visit Reasons: (OV) F/U SWL Allergies aspirin [ASA] Allergy (Unknown, Verified 09/24/22 09:43) UNKNOWN diclofenac [DICLOFENAC] Allergy (Unknown, Verified 09/24/22 09:43) AFFECTED KIDNEYS latex [LATEX] Allergy (Unknown, Verified 09/24/22 09:43) HIVES naproxen [From ALEVE] Allergy (Unknown, Verified 09/24/22 09:43) KIDNEY ISSUES NSAIDS (Non-Steroidal Anti-Inflamma [NSAIDS (NON-STEROIDAL ANTI-INFLAMMA] Allergy (Unknown, Verified 09/24/22 09:43) AFFECT KIDNEYS nut - unspecified [NUTS] Allergy (Unknown, Verified 09/24/22 09:43) SWELLING orange [ORANGES] Allergy (Unknown, Verified 09/24/22 09:43) UNKNOWN penicillin V Allergy (Unknown, Verified 09/24/22 09:43) Unknown Penicillins [PENICILLINS] Allergy (Unknown, Verified 09/24/22 09:43) UNKNOWN strawberry [STRAWBERRY] Allergy (Unknown, Verified 09/24/22 09:43) UNKNOWN zolpidem [From AMBIEN] Allergy (Unknown, Verified 09/24/22 09:43) UNKNOWN Aspir-81 Allergy (Intermediate, Uncoded 09/16/22 10:37) Hives Medication List - Last Reconciled 09/24/22 by Domitila Lewis PA-C acetaminophen ER 650 mg PO TID acetaminophen-codeine 300-30 mg 1 tab PO Q8H PRN cholecalciferol (vitamin D3) 25 mcg PO DAILY diphenhydramine HCl 50 mg PO BEDTIME ibuprofen 400 mg PO BID levothyroxine 112 mcg PO DAILY lidocaine-prilocaine 2.5-2.5 % grams topical DAILY losartan 100 mg PO DAILY magnesium oxide 250 mg PO DAILY metaxalone 800 mg PO BID PRN pantoprazole 20 mg PO DAILY rosuvastatin 20 mg PO BEDTIME spironolactone 25 mg PO DAILY trazodone 100 mg PO BEDTIME HPI HPI Comments History of Present Illness Details This is the patients second appt for revision of LSG after 100 lb weight gain. Starting weight was 281.9 lbs on 08/26/22. TBWL is 10.1lbs. Meal plan: 8am - 1 hb egg and with Premeir shake - over 30 minutes 12pm- 4-5 oz baked chicken thigh, lettuce or broccoli - or no vegetables 2pm - half bag of Quest chipsn or Quest bar 6pm - salad with 4 -5 oz chicken thigh OR half can of tuna or chicken Exercise plan: gets out of breath quickly - can not walk far. Pre op work up completed as follows: SWL classes - 08 BH appts -not yet RD appts - has follow up in September H pylori - not done yet Labs - done CXR - not done yet ECG - abnormal, Had appt withDr Subramanin on 09/16/22 - reviewed all testing and cardiac cath - cleared for surgery. UGI -Evidence of previous gastric sleeve surgery with small sliding hiatal hernia. Otherwise upper GI Gastrografin study is unremarkable.? ?ULs - will order today- [facility] Medical History (Updated 08/26/22 @ 14:01 by Domitila Lewis PA-C) Essential hypertension Hyperthyroidism Morbid (severe) obesity due to excess calories Other and unspecified hyperlipidemia Surgical History H/O gastric sleeve History of hernia repair History of right hip replacement History of spinal surgery History of tonsillectomy Family History Father No problems noted. Mother Cardiomyopathy Sister Leukemia COVID Brother Lung disease Sister Kidney disease Son Cardiomyopathy Daughter No problems noted. Daughter Lupus Daughter Autism Polycystic kidney Social History Alcohol intake: never Patient Tobacco Use Status: Former Tobacco user Quit Date: 11/2021 Years Smoked: 15 +/- Physical Exam Vital Signs: Last Vital Signs Temp 97.7 F 09/24/22 09:46 Pulse 86 08/01/23 09:46 BP 129/80 09/24/22 09:46 Pulse Ox 95 09/24/22 09:46 Oxygen Delivery Method Room Air 09/24/22 09:46 BMI result Body Mass Index 48.1 Assessment & Plan Assessment & Plan (1) Morbid (severe) obesity due to excess calories: Code(s): E66.01 - Morbid (severe) obesity due to excess calories Plan: Good start with 10 lbs lost - we have adjusted her meal plan again. 8am - 30 gram sahke 12pm - 3 oz lean protien adn 3 oz vegetable (gets full very quickly) 3pm- protein bar - no quest chips 6pm - 30 gram shake Exercise - Kip Isaiahen 30 minutes dialy - in didvided times prn BH, ULS, CXR ordered. I will have Dr Longoria review UGI. Will need h pylori -noce GERD symptoms improve or with EGD. Next appt with me in 3 weeks. Patient is morbidly obese and is not considered stable at this time. I spent 30minutes in total with patient reviewing/updating records, examining the patient and counseling the patient on weight management as detailed above. (2) H/O gastric sleeve: Comment: 2011 Dr Urbina Code(s): Z90.3 - Acquired absence of stomach [part of] Orders: Orders US abdomen comp w elastography Today E66.01 - Morbid (severe) obesity due to excess calories, Z90.3 - Acquired absence of stomach [part of] XR chest 2V Today E66.01 - Morbid (severe) obesity due to excess calories, Z90.3 - Acquired absence of stomach [part of] Referrals Behavioral Health Referral E66.01 - Morbid (severe) obesity due to excess calories, Z90.3 - Acquired absence of stomach [part of] Coding Level of Care Code Est Pt Level 4 (46337) Diagnoses Morbid (severe) obesity due to excess calories E66.01 H/O gastric sleeve Z90.3
[2022-09-24 09:46] VITALS: BP 129/80; PULSE 86; TEMP 36.5; O2SAT 95; BMI 48.1
== END 2022-09-24 10:27 | disposition home or self-care (01) ==
PROVIDERS: PCP Internal Medicine; Visit Provider Physician Assistant
DX: E66.01 Morbid (severe) obesity due to excess calories (principal); Z90.3 Acquired absence of stomach [part of]
CPT/HCPCS: 99214

== ENCOUNTER → 2022-09-24 09:27 | Outpatient (BNVA) | payer OTHER, SELFPAY | PROVIDERS: PCP Internal Medicine; Visit Provider Physician Assistant | DX: E66.09 Other obesity due to excess calories (principal); Z68.42 Body mass index [BMI] 45.0-49.9, adult; Z90.3 Acquired absence of stomach [part of] | CPT/HCPCS: 99212 ==

== ENCOUNTER 2022-10-22 08:31 | Day surgery (SDC) | payer OTHER, SELFPAY ==
--- NOTE | 2022-10-18 22:19 | MHC.SHP ---
Pre-Procedural Eval Section A Date of Service: 10/18/22 The patient is an INPATIENT: No The History & Physical has been completed within 30 days and I have reviewed it.: Yes Section B Chief Complaint: gerd Relevant Family History (Specify if Yes): No Relevant Social History: None Present Medications: None Medical History: No relevant PMH History of Previous Operations: Relevant previous surgery/procedure and date(s) (laparoscopic sleeve gastrectomy) Allergies: Allergies Allergy/AdvReac Type Severity Reaction Status Date / Time aspirin [ASA] Allergy Unknown UNKNOWN Verified 09/24/22 09:43 diclofenac [DICLOFENAC] Allergy Unknown AFFECTED Verified 09/24/22 09:43 KIDNEYS latex [LATEX] Allergy Unknown HIVES Verified 09/24/22 09:43 naproxen [From ALEVE] Allergy Unknown KIDNEY Verified 09/24/22 09:43 ISSUES NSAIDS (Non-Steroidal Allergy Unknown AFFECT Verified 09/24/22 09:43 Anti-Inflamma KIDNEYS [NSAIDS (NON-STEROIDAL ANTI-INFLAMMA] nut - unspecified [NUTS] Allergy Unknown SWELLING Verified 09/24/22 09:43 orange [ORANGES] Allergy Unknown UNKNOWN Verified 09/24/22 09:43 penicillin V Allergy Unknown Unknown Verified 09/24/22 09:43 Penicillins [PENICILLINS] Allergy Unknown UNKNOWN Verified 09/24/22 09:43 strawberry [STRAWBERRY] Allergy Unknown UNKNOWN Verified 09/24/22 09:43 zolpidem [From AMBIEN] Allergy Unknown UNKNOWN Verified 09/24/22 09:43 Aspir-81 Allergy Intermediate Hives Uncoded 09/16/22 10:37 Review of Systems Sugical H&P ROS: Negative: Constitution, Cardiovascular, Respiratory, Neurological, Psychiatric, Hem-Onc, Allergic/Immunologic, Gastrointestinal, Genitourinary, Musculoskeletal, Integumentary, Endocrine and Eyes/Ears/Nose/Throat Exam Surgical H&P Exam: Normal: HEENT, Normal: Heart, Normal: Lungs, Normal: Extremities, Normal: Abdomen, Normal: Skin and Normal: Neurological Plan Diagnosis/Plan: Unchanged (EGD to assess for esophagitis. Risks for perforation and bleeding were discussed with patient. She is in agreement with the plan) I have reviewed the history and physical and performed a pertinent physical examination on my patient. No changes have occurred unless specified. Time Spent With Patient Time: Total time managing care of this patient today ____ minutes.
--- NOTE | 2022-10-21 09:38 | P.CONAN_ITS ---
Documented by User: Linda Khalil NP 10/21/22 09:41 HPI - Anesthesia Eval Consult details Narrative: 62yo F for Upper Endoscopy Recent cardiac w/u for abn EKG and SOB. All negative for ischemia. Cardiology rec's weight loss. PMFSH Active Problems Active Problems: All Active Problems (Updated 08/26/22 @ 14:01 by Domitila Lewis PA-C) Hypothyroid (Acute) Fibromyalgia (Acute) Rheumatoid arthritis (Acute) Lupus (Acute) H/O gastric sleeve (Acute) Morbid (severe) obesity due to excess calories (Acute) Other and unspecified hyperlipidemia (Acute) Essential hypertension (Acute) SOB (shortness of breath) (Acute) Precordial chest pain (Acute) Past Medical History Medical History Essential hypertension Hyperthyroidism Morbid (severe) obesity due to excess calories Other and unspecified hyperlipidemia Family History Family History Father No problems noted. Mother Cardiomyopathy Sister Leukemia COVID Brother Lung disease Sister Kidney disease Son Cardiomyopathy Daughter No problems noted. Daughter Lupus Daughter Autism Polycystic kidney Surgical History Surgical History H/O gastric sleeve History of hernia repair History of right hip replacement History of spinal surgery History of tonsillectomy Social History Social History Alcohol intake: never Patient Tobacco Use Status: Former Tobacco user Quit Date: 11/2021 Years Smoked: 15 +/- Use of substances other than those prescribed or required for medical reasons: No Are you DNR?: No Advance Directives: No Advance Directives Information Provided: Yes Meds Allergies Allergy/AdvReac Type Severity Reaction Status Date / Time aspirin [ASA] Allergy Unknown UNKNOWN Verified 09/24/22 09:43 diclofenac [DICLOFENAC] Allergy Unknown AFFECTED Verified 09/24/22 09:43 KIDNEYS latex [LATEX] Allergy Unknown HIVES Verified 09/24/22 09:43 naproxen [From ALEVE] Allergy Unknown KIDNEY Verified 09/24/22 09:43 ISSUES NSAIDS (Non-Steroidal Allergy Unknown AFFECT Verified 09/24/22 09:43 Anti-Inflamma KIDNEYS [NSAIDS (NON-STEROIDAL ANTI-INFLAMMA] nut - unspecified [NUTS] Allergy Unknown SWELLING Verified 09/24/22 09:43 orange [ORANGES] Allergy Unknown UNKNOWN Verified 09/24/22 09:43 penicillin V Allergy Unknown Unknown Verified 09/24/22 09:43 Penicillins [PENICILLINS] Allergy Unknown UNKNOWN Verified 09/24/22 09:43 strawberry [STRAWBERRY] Allergy Unknown UNKNOWN Verified 09/24/22 09:43 zolpidem [From AMBIEN] Allergy Unknown UNKNOWN Verified 09/24/22 09:43 Aspir-81 Allergy Intermediate Hives Uncoded 09/16/22 10:37 Home Medications Medication Instructions Recorded Confirmed Last Taken Type acetaminophen 650 mg 650 mg PO TID 04/23/22 09/24/22 Unknown History tablet,extended release cholecalciferol (vitamin D3) 25 25 mcg PO DAILY 04/23/22 09/24/22 Unknown History mcg (1,000 unit) capsule diphenhydramine HCl 25 mg capsule 50 mg PO BEDTIME 04/23/22 09/24/22 Unknown History levothyroxine 112 mcg capsule 112 mcg PO DAILY 04/23/22 09/24/22 Unknown History lidocaine-prilocaine 2.5 %-2.5 % g topical DAILY 04/23/22 09/24/22 Unknown History topical cream losartan 100 mg tablet 100 mg PO DAILY 04/23/22 09/24/22 Unknown History magnesium oxide 250 mg PO DAILY 04/23/22 09/24/22 Unknown History metaxalone 800 mg tablet 800 mg PO BID PRN 04/23/22 09/24/22 Unknown History rosuvastatin 20 mg tablet 20 mg PO BEDTIME 04/23/22 09/24/22 Unknown History trazodone 100 mg tablet 100 mg PO BEDTIME 04/23/22 09/24/22 Unknown History acetaminophen 300 mg-codeine 30 mg 1 tab PO Q8H PRN 07/09/22 09/24/22 Unknown History tablet pantoprazole 20 mg tablet,delayed 20 mg PO DAILY 07/25/22 09/24/22 Unknown History release spironolactone 25 mg tablet 25 mg PO DAILY 08/26/22 09/24/22 Unknown History ibuprofen 400 mg tablet 400 mg PO BID 09/24/22 09/24/22 Unknown History Exam Exam Date and Time: October 21, 2022 09 Pertinent Lab Results Pertinent Lab Results: Laboratory Tests 09/16/22 09/16/22 10:25 10:25 WBC 8.4 Hgb 12.4 Hct 40.8 Plt Count 229 Sodium 141 Potassium 4.5 Chloride 107 Carbon Dioxide 26 BUN 20 H Creatinine 1.03 Narrative Narrative: Baseline EKG has mild sinus tachycardia 100/Min.? No significant ST-T changes; normal NH.? Borderline prolongation corrected QT at 482 milliseconds. Echocardiogram technically limited because of body habitus in spite of contrast use.? LVEF 55-60%.? Mild diastolic dysfunction.? No significant valvular issues within limits of visualization.? No significant pulmonary hypertension. Pharmacological perfusion imaging is unremarkable. In the cardiac catheterization, mild disease in the mid LAD but otherwise normal coronary arteries.? Mild elevation LVEDP.? No gradient across aortic valve. Assessment and Plan Assessment Anesthesia Assessment: Chart Reviewed Documented by User: Alethea cM MD 10/22/22 10:41 [facility] Past Medical History Medical History Essential hypertension Hyperthyroidism Morbid (severe) obesity due to excess calories Other and unspecified hyperlipidemia Family History Family History Father No problems noted. Mother Cardiomyopathy Sister Leukemia COVID Brother Lung disease Sister Kidney disease Son Cardiomyopathy Daughter No problems noted. Daughter Lupus Daughter Autism Polycystic kidney Surgical History Surgical History H/O gastric sleeve History of hernia repair History of right hip replacement History of spinal surgery History of tonsillectomy History of Problems with Anesthesia: No Social History Social History Alcohol intake: never Patient Tobacco Use Status: Former Tobacco user Quit Date: 11/2021 Years Smoked: 15 +/- Use of substances other than those prescribed or required for medical reasons: No Are you DNR?: No Advance Directives: No Advance Directives Information Provided: Yes Meds Allergies Allergy/AdvReac Type Severity Reaction Status Date / Time aspirin [ASA] Allergy Unknown UNKNOWN Verified 09/24/22 09:43 diclofenac [DICLOFENAC] Allergy Unknown AFFECTED Verified 09/24/22 09:43 KIDNEYS latex [LATEX] Allergy Unknown HIVES Verified 09/24/22 09:43 naproxen [From ALEVE] Allergy Unknown KIDNEY Verified 09/24/22 09:43 ISSUES NSAIDS (Non-Steroidal Allergy Unknown AFFECT Verified 09/24/22 09:43 Anti-Inflamma KIDNEYS [NSAIDS (NON-STEROIDAL ANTI-INFLAMMA] nut - unspecified [NUTS] Allergy Unknown SWELLING Verified 09/24/22 09:43 orange [ORANGES] Allergy Unknown UNKNOWN Verified 09/24/22 09:43 penicillin V Allergy Unknown Unknown Verified 09/24/22 09:43 Penicillins [PENICILLINS] Allergy Unknown UNKNOWN Verified 09/24/22 09:43 strawberry [STRAWBERRY] Allergy Unknown UNKNOWN Verified 09/24/22 09:43 zolpidem [From AMBIEN] Allergy Unknown UNKNOWN Verified 09/24/22 09:43 Aspir-81 Allergy Intermediate Hives Uncoded 09/16/22 10:37 Home Medications Medication Instructions Recorded Confirmed Last Taken Type acetaminophen 650 mg 650 mg PO TID 04/23/22 09/24/22 Unknown History tablet,extended release cholecalciferol (vitamin D3) 25 25 mcg PO DAILY 04/23/22 09/24/22 Unknown History mcg (1,000 unit) capsule diphenhydramine HCl 25 mg capsule 50 mg PO BEDTIME 04/23/22 09/24/22 Unknown H istory levothyroxine 112 mcg capsule 112 mcg PO DAILY 04/23/22 09/24/22 Unknown History lidocaine-prilocaine 2.5 %-2.5 % g topical DAILY 04/23/22 09/24/22 Unknown History topical cream losartan 100 mg tablet 100 mg PO DAILY 04/23/22 09/24/22 Unknown History magnesium oxide 250 mg PO DAILY 04/23/22 09/24/22 Unknown History metaxalone 800 mg tablet 800 mg PO BID PRN 04/23/22 09/24/22 Unknown History rosuvastatin 20 mg tablet 20 mg PO BEDTIME 04/23/22 09/24/22 Unknown History trazodone 100 mg tablet 100 mg PO BEDTIME 04/23/22 09/24/22 Unknown History acetaminophen 300 mg-codeine 30 mg 1 tab PO Q8H PRN 07/09/22 09/24/22 Unknown History tablet pantoprazole 20 mg tablet,delayed 20 mg PO DAILY 07/25/22 09/24/22 Unknown History release spironolactone 25 mg tablet 25 mg PO DAILY 08/26/22 09/24/22 Unknown History ibuprofen 400 mg tablet 400 mg PO BID 09/24/22 09/24/22 Unknown History Exam Airway Mallampati Class: III TM Dist: >3cm Neck ROM: Full Denture: Upper Loose/Missing/Broken Teeth: Yes, Upper and Lower Heart: RRR Lungs: CTA Assessment and Plan Assessment Anesthesia Assessment: Anesthesia Plan Discussed Final Anesthetic Review History of Problems with Anesthesia: No NPO: Yes ASA Class: III Final Preanesthetic Review: Meds/Allgs Chart Reviewed, Consent Obtained/Reviewed and Anes Risks/Benef Reviewed Patient Risk: Intermediate Procedure Risk: Intermediate Anesthetic Plan Anesthetic Plan: MAC: Disposition: Standard PACU
[2022-10-22 09:42] VITALS: BMI 49.6
[2022-10-22 09:49] VITALS: BP 130/87; PULSE 90; RESP 18; TEMP 35.8; O2SAT 96
[2022-10-22] MEDS: Lactated Ringers 1,000 ML 100 ML IVCONT (09:52)
--- NOTE | 2022-10-22 09:54 | PM.OP ---
Brief Operative Note Date of Service: 10/22/22 Pre-op diagnosis: GERD, s/p sleeve gastrectomy Post-op diagnosis: same Procedure: PROCEDURE DATE: 10/22/2022 PREOPERATIVE DIAGNOSIS: GERD, s/p sleeve gastrectomy POSTOPERATIVE DIAGNOSIS: ?Same as above. 1) esophagitis, 2) redundant proximal gastric fundus with food retention, 3) bile reflux PROCEDURE: [id number] with biopsies Surgeon: ?Flo Langston M.D.. Ph.D. China Painter: None ? Anesthesia: IV sedation Estimated blood loss: ?Minimal FINDINGS AND PROCEDURE: ? OPERATIVE INDICATIONS: ?The patient is a 62 year old female known to me who underwent a laparoscopic sleeve gastrectomy elsewhere. The patient had inadequate weight loss so far and has been complaining of GERD. Based on this information I recommended an upper endoscopy to evaluate the patient's symptoms. Risks and complications of the surgery were discussed with the patient in advance particularly the possibility of perforation or bleeding that may require surgical intervention. The patient understood the risks and was in agreement with the plan. ? PROCEDURE: After informed consent was obtained by the patient, the patient was ?transferred to the Operating Room and was placed in the supine position.? After successful induction of IV sedation, a mouth block was inserted and the patient was placed in the left lateral decubitus position. An upper endoscopy was performed next, the oropharynx and esophagus appeared within the normal limits. There was no hiatal hernia. The z-line was irregular with tongues of gastric mucosa protruding into the esophagus in about 50% circumference. Two biopsies were obtained from the distal esohagus 2-3 cm proximal to the GE junction and two additional biopsies from the GE junction. The sleeve was entered. There was redundancy proximally whereas the distal sleeve had an even caliber throughout. and it appeared to be of normal size. Because of the uneven caliber proximally some amount of food was retained in the proximal fundus. There was mild gastritis at distal antrum. There was moderate amount of bile reflux within the sleeve bt not at the esophagus. There was no stricture or ulcer. Biopsies were obtained from the proximal sleeve as well as the distal antrum. No significant bleeding was noted from any of the biopsy sites. The scope was then advanced into the duodenum which appeared to be normal as well. At that point the duodenum ?and the sleeve were decompressed and the scope was withdrawn from the patient's mouth. The patient extubated and was transferred in stable condition to the Recovery Room for further care. I was present and performed all steps of the procedure. There were no residents to assist with this case. Flo Langston M.D., Ph.D. Surgeon: Gold Langston MD Anesthesia: MAC Was an China Painter used for this Procedure?: No Estimated blood loss (mL): 0 IV fluids (mL): 400 Urine output (mL): 0 (No Jiménez to record output) Pathology: other (Path: 1) antrum x1, 2) proximal sleeve/gastric fundus x1, 3) EGJ x2, 4) distal esophagus x2) Condition: stable Disposition: PACU
[2022-10-22 10:35] VITALS: BP 116/73; PULSE 80; RESP 20; TEMP 36.4; O2SAT 100
[2022-10-22 10:50] VITALS: BP 141/86; PULSE 75; RESP 18; O2SAT 100
[2022-10-22 11:05] VITALS: BP 154/97; PULSE 78; RESP 16; TEMP 36.3; O2SAT 100
== END 2022-10-22 11:45 | disposition home or self-care (01) ==
PROVIDERS: PCP Internal Medicine; Visit Provider Surgery
PROC: 0DJ08ZZ Inspection of Upper Intestinal Tract, Via Natural or Artificial Opening Endoscopic (ICD-10-PCS; CPT 43235; principal; 2022-10-22 10:10)
DX: K21.9 Gastro-esophageal reflux disease without esophagitis (principal); K31.89 Other diseases of stomach and duodenum; K20.80 Other esophagitis without bleeding; K29.60 Other gastritis without bleeding; Z98.84 Bariatric surgery status; Z90.3 Acquired absence of stomach [part of]
CPT/HCPCS: 43239; 88305; 88342

== ENCOUNTER → 2022-10-22 08:31 | Outpatient (BNV) | payer OTHER, SELFPAY | PROVIDERS: PCP Internal Medicine; Visit Provider Surgery | DX: K21.00 Gastro-esophageal reflux disease with esophagitis, without bleeding (principal); Z90.3 Acquired absence of stomach [part of]; Z98.84 Bariatric surgery status; K29.70 Gastritis, unspecified, without bleeding; K31.89 Other diseases of stomach and duodenum | CPT/HCPCS: 43239 ==

== ENCOUNTER 2022-10-31 07:34 | Outpatient (REF) | payer OTHER, SELFPAY ==
--- NOTE | ~2022-10-31 | XR_ITS ---
EXAMINATION: XR CHEST CLINICAL INFORMATION: Morbid obesity. COMPARISON: None available. TECHNIQUE: 2 views of the chest were obtained. FINDINGS: The lung volumes are low. The cardiomediastinal silhouette is within normal limits. There is no focal lung consolidation or pleural effusion. A spinal stimulator device is at the level of T7 posteriorly. The soft tissues are unremarkable. XR/XR chest 2V IMPRESSION: No active cardiopulmonary disease.
--- NOTE | ~2022-10-31 | US_ITS ---
EXAMINATION: US COMPLETE ABDOMEN WITH LIVER ELASTOGRAPHY CLINICAL INFORMATION: Obesity. COMPARISON: Renal ultrasound dated 05/14/2018. TECHNIQUE: Real-time imaging of the abdominal viscera. Noninvasive ultrasound liver fibrosis assessment is performed using Yuliya ElastPQ point quantification shear wave elastography (2D-SWE) with a C5-2 MHz transducer. Multiple elastography samples are obtained. FINDINGS: PANCREAS: Normal. The visualized pancreatic head and body are normal in appearance. The remainder of the pancreas is obscured from visualization by the overlying bowel gas. ABDOMINAL AORTA: The proximal, middle, and distal aortic segments are normal in caliber. INFERIOR VENA CAVA: Visualized portions are normal. LIVER: Normal. The liver demonstrates normal size, contour and echogenicity. No focal lesion or intrahepatic biliary duct dilatation. The right lobe measures 19.6 cm in length. The left lobe measures 9.3 cm in length. Portal flow is towards the liver (hepatopetal). Shear wave liver elastography median stiffness is 1.85 m/s (reference: normal median stiffness is 1.3 m/s or less). IQR/median stiffness to assess sampling precision is 0.16 (reference: good quality data set is IQR/median stiffness of 0.15 or less). GALLBLADDER: Normal. The gallbladder is physiologically distended without evidence of stones, sludge, polyps, wall thickening or pericholecystic fluid. COMMON BILE DUCT: Normal in caliber measuring 0.4 cm in diameter. RIGHT KIDNEY: Normal. No hydronephrosis. No renal calculi or focal parenchymal lesions. The kidney measures 10.4 cm in maximum dimension. LEFT KIDNEY: Normal. No hydronephrosis. No renal calculi or focal parenchymal lesions. The kidney measures 10.7 cm in maximum dimension. SPLEEN: Normal. The spleen measures 8.0 cm in maximum dimension. FREE FLUID: None. US/US abdomen comp w elastography IMPRESSION: 1. There is generalized increase in hepatic echotexture, consistent with fatty infiltration or hepatocellular disease. Please correlate clinically. No focal hepatic mass or intrahepatic biliary dilatation is seen. 2. There is mild hepatomegaly. 3. Liver elastography: Although measurements are suggestive of compensated advanced chronic liver disease, there is statistical variability of the sampling which decreases accuracy. REFERENCE: Society of Radiologists in Ultrasound Liver Stiffness Thresholds (2020): LIVER STIFFNESS THRESHOLDS: *Liver Stiffness equal or less than 1.3 m/s: High probability of being normal. *Liver Stiffness less than 1.7 m/s: In the absence of other known clinical signs, rules out compensated advanced chronic liver disease. *Liver Stiffness 1.7-2.1 m/s: Suggestive of compensated advanced chronic liver disease but need further test for confirmation. *Liver Stiffness over 2.1 m/s: Rules in compensated advanced chronic liver disease. *Liver Stiffness over 2.4 m/s: Suggestive of clinically significant portal hypertension. QUALITY OF DATA SET: *IQR/Median value equal or less than 0.15 implies a quality data set. *IQR/Median value over 0.15 implies a poor quality data set. SIGNIFICANT CHANGE FROM PRIOR EXAM: Significant change if liver stiffness measurement is 10% or greater from prior exam. OTHER CONSIDERATIONS: The stage of liver fibrosis may be overestimated in the setting of acute hepatitis, liver inflammation, elevated liver function tests, hepatic vascular congestion, obstructive cholestasis, non-fasting state, and infiltrative diseases such as amyloidosis and lymphoma. In some patients with NAFLD, the liver stiffness thresholds for compensated advanced chronic liver disease may be lower. In causes other than viral hepatitis and NAFLD, liver stiffness thresholds are not well established.
== END 2022-10-31 07:35 | disposition home or self-care (01) ==
LOC: HO.US 07:34
PROVIDERS: PCP Internal Medicine; Visit Provider Physician Assistant
DX: E66.01 Morbid (severe) obesity due to excess calories (principal); Z90.3 Acquired absence of stomach [part of]
CPT/HCPCS: 71046; 76705; 76981

== ENCOUNTER → 2022-11-07 10:52 | Outpatient (REF) | payer OTHER, SELFPAY | LOC: HO.SL 10:52 | PROVIDERS: PCP Internal Medicine; Visit Provider Physician Assistant | DX: G47.33 Obstructive sleep apnea (adult) (pediatric) (principal); E66.01 Morbid (severe) obesity due to excess calories; R06.02 Shortness of breath | CPT/HCPCS: 95806 ==

== ENCOUNTER → 2022-11-07 11:04 | Outpatient (BNV) | payer OTHER, SELFPAY | PROVIDERS: PCP Internal Medicine; Visit Provider Internal Medicine | DX: G47.33 Obstructive sleep apnea (adult) (pediatric) (principal) | CPT/HCPCS: 95806 ==

== ENCOUNTER 2022-11-19 11:30 | Outpatient (AMB) | payer OTHER, SELFPAY ==
--- NOTE | 2022-11-19 11:32 | A.OFFVIS_ITS ---
Intake VS Expanded 11/19/22 11:36 Height 5 ft 3 in Weight 255 lb 2 oz BMI 45.2 Intake Visit Reasons: VIDEO F/U [facility] Allergies aspirin [ASA] Allergy (Unknown, Verified 09/24/22 09:43) UNKNOWN diclofenac [DICLOFENAC] Allergy (Unknown, Verified 09/24/22 09:43) AFFECTED KIDNEYS latex [LATEX] Allergy (Unknown, Verified 09/24/22 09:43) HIVES naproxen [From ALEVE] Allergy (Unknown, Verified 09/24/22 09:43) KIDNEY ISSUES NSAIDS (Non-Steroidal Anti-Inflamma [NSAIDS (NON-STEROIDAL ANTI-INFLAMMA] Allergy (Unknown, Verified 09/24/22 09:43) AFFECT KIDNEYS nut - unspecified [NUTS] Allergy (Unknown, Verified 09/24/22 09:43) SWELLING orange [ORANGES] Allergy (Unknown, Verified 09/24/22 09:43) UNKNOWN penicillin V Allergy (Unknown, Verified 09/24/22 09:43) Unknown Penicillins [PENICILLINS] Allergy (Unknown, Verified 09/24/22 09:43) UNKNOWN strawberry [STRAWBERRY] Allergy (Unknown, Verified 09/24/22 09:43) UNKNOWN zolpidem [From AMBIEN] Allergy (Unknown, Verified 09/24/22 09:43) UNKNOWN Aspir-81 Allergy (Intermediate, Uncoded 09/16/22 10:37) Hives HPI HPI Comments History of Present Illness Details SW[facility] follow up for revision of LSG. 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 PT Gym - every other day, bike x 10 minutes then LE and UE exercises, rowing machine 10 minutes. States gets OOB. PCP, Dr Messina has referred her to Support Team Member - Has appt on Dec 12 in [place]. Meal plan: does not like bars, states gets heartburn with raw vegetables 8am- Premier shake - over 30 minutes 2 pm - 6 plant based - vegetarian chicke n nuggets with honey mustard OR eats cooked green beans 6:30 pm- another shake Pre op work up completed as follows: [facility] classes - 0, will be given access again today appts -not yet appts - has follow up in September- not seen, needs to be rescheduled H pylori - negative by biopsy EGD Labs - done CXR - normal ECG - abnormal, Had appt withDr Chintan on 09/16/22 - reviewed all testing and cardiac cath - cleared for surgery. UGI -Evidence of previous gastric sleeve surgery with small sliding hiatal hernia. Otherwise upper GI Gastrografin study is unremarkable.? ULS - fatty liver, R 19.6, L 9.3 cm SS - moderately severe IVY - pateitn staates had difficulty keeping nasal and did not have accurate readings overnight - will reorder as a labs tudy. EGD - 10/22/22 An upper endoscopy was performed next, the oropharynx and esophagus appeared within the normal limits. There was no hiatal hernia. The z- line was irregular with tongues of gastric mucosa protruding into the esophagus in about 50% circumference. Two biopsies were obtained from the distal esohagus 2-3 cm proximal to the GE junction and two additional biopsies from the GE junction. The sleeve was entered. There was redundancy proximally whereas the d istal sleeve had an even caliber throughout. and it appeared to be of normal size. Because of the uneven caliber proximally some amount of food was retained in the proximal fundus. There was mild gastritis at distal antrum. There was moderate amount of bile reflux within the sleeve bt not at the esophagus. There was no stricture or ulcer. Biopsies were obtained from the proximal sleeve as well as the distal antrum. No significant bleeding was noted from any of the biopsy sites. The scope was then advanced into the duodenum which appeared to be normal as well. Sucralfate bid for gastritis- patient states was never notified of prescription. I resent it today. [facility] Medical History Essential hypertension Hyperthyroidism Morbid (severe) obesity due to excess calories Other and unspecified hyperlipidemia Surgical History H/O gastric sleeve History of hernia repair History of right hip replacement History of spinal surgery History of tonsillectomy Family History Father No problems noted. Mother Cardiomyopathy Sister Leukemia COVID Brother Lung disease Sister Kidney disease Son Cardiomyopathy Daughter No problems noted. Daughter Lupus Daughter Autism Polycystic kidney Social History Alcohol intake: never Patient Tobacco Use Status: Former Tobacco user Quit Date: 11/2021 Years Smoked: 15 +/- Assessment & Plan Assessment & Plan (1) Morbid (severe) obesity due to excess calories: Code(s): E66.01 - Morbid (severe) obesity due to excess calories Plan: Patient states she has lost weight - but I have no evidence of her weight. She is unable to exercise more due to lung issues will see medical equipment repairer in NOV and will review findings. She will continue what she is doing now. Meal plan - does not follow a healthy meal plan yet, we reviewed the following and will need help. 9 am - shake 12 pm - shake 4 pm- dinner of 3 oz lean protein, 3 oz vegetable 7pm - yogurt Must buy electronic scale - states her insurance will pay for it - will have Angel help her with this. Must watch [facility] classes - if can nnot watch htem at home will come to office to watch them Needs BH and RD appts now - has missed both appts In lab SS ordered - due to possible inaccurate home test. Start sucralfate now for gastritis. Is a revison candidate per Dr Longoria when she is ready. Next appt with me in 3 weeks in OFFICE Patient is still morbidly obese and is not considered stable at this time. I spent 30minutes in total speaking with the patient via video conference counseling , reviewing records and charting in patients chart. . (2) Sleep apnea: Code(s): G47.30 - Sleep apnea, unspecified (3) H/O gastric sleeve: Comment: 2011 Dr Urbina Code(s): Z90.3 - Acquired absence of stomach [part of] Orders: Orders RT PSG in-lab sleep titration Today G47.30 - Sleep apnea, unspecified Medications: Refilled sucralfate Do not eat or drink anything for 45 minutes after taking this medication. 10 mL PO BID 420 mL 1RF Coding Level of Care Code Tele Est Pt Level 4 (69134) Diagnoses Morbid (severe) obesity due to excess calories E66.01 Sleep apnea G47.30 H/O gastric sleeve Z90.3
[2022-11-19 11:36] VITALS: BMI 45.2
== END 2022-11-19 12:00 | disposition home or self-care (01) ==
LOC: HO.HBS 12:16
PROVIDERS: PCP Internal Medicine; Visit Provider Physician Assistant
DX: E66.01 Morbid (severe) obesity due to excess calories (principal); Z68.42 Body mass index [BMI] 45.0-49.9, adult; Z90.3 Acquired absence of stomach [part of]; G47.30 Sleep apnea, unspecified
CPT/HCPCS: 99214

== ENCOUNTER → 2022-11-19 11:30 | Outpatient (BNVA) | payer OTHER, SELFPAY | PROVIDERS: PCP Internal Medicine; Visit Provider Physician Assistant | DX: E66.01 Morbid (severe) obesity due to excess calories (principal); Z90.3 Acquired absence of stomach [part of]; G47.30 Sleep apnea, unspecified ==

== ENCOUNTER → 2022-12-13 20:30 | Outpatient (REF) | payer OTHER, SELFPAY | LOC: HO.SL 20:30 | PROVIDERS: PCP Internal Medicine; Visit Provider Physician Assistant | DX: G47.33 Obstructive sleep apnea (adult) (pediatric) (principal) | CPT/HCPCS: 95811 ==

== ENCOUNTER → 2022-12-14 00:28 | Outpatient (BNV) | payer OTHER, SELFPAY | PROVIDERS: PCP Internal Medicine; Visit Provider Internal Medicine | DX: G47.33 Obstructive sleep apnea (adult) (pediatric) (principal) | CPT/HCPCS: 95811 ==

== ENCOUNTER → 2023-01-07 13:04 | Outpatient (BNVA) | payer OTHER, SELFPAY | PROVIDERS: PCP Internal Medicine; Visit Provider Dietitian, Registered | DX: E66.9 Obesity, unspecified (principal); Z68.41 Body mass index [BMI] 40.0-44.9, adult | CPT/HCPCS: 97803 ==

== ENCOUNTER 2023-01-14 14:45 | Outpatient (AMB) | payer OTHER, SELFPAY ==
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
== END 2023-01-15 12:44 | disposition home or self-care (01) ==
LOC: HO.HBST 15:34
PROVIDERS: PCP Internal Medicine; Visit Provider Counselor Mental Health
DX: F34.9 Persistent mood [affective] disorder, unspecified (principal); M32.9 Systemic lupus erythematosus, unspecified; M06.9 Rheumatoid arthritis, unspecified; G47.30 Sleep apnea, unspecified
CPT/HCPCS: 90791

== ENCOUNTER → 2023-01-14 14:45 | Outpatient (BNVA) | payer OTHER, SELFPAY | PROVIDERS: PCP Internal Medicine; Visit Provider Counselor Mental Health ==

== ENCOUNTER 2023-02-05 14:04 | Outpatient (AMB) | payer OTHER, SELFPAY ==
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
== END 2023-02-05 16:01 | disposition home or self-care (01) ==
LOC: HO.HBST 14:05
PROVIDERS: PCP Internal Medicine; Visit Provider Counselor Mental Health
DX: F34.9 Persistent mood [affective] disorder, unspecified (principal); M32.9 Systemic lupus erythematosus, unspecified; M06.9 Rheumatoid arthritis, unspecified; G47.30 Sleep apnea, unspecified
CPT/HCPCS: 90832

== ENCOUNTER → 2023-02-05 14:04 | Outpatient (BNVA) | payer OTHER, SELFPAY | PROVIDERS: PCP Internal Medicine; Visit Provider Counselor Mental Health ==

== ENCOUNTER 2023-02-20 11:58 | Outpatient (AMB) | payer OTHER, SELFPAY ==
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
== END 2023-02-20 13:42 | disposition home or self-care (01) ==
LOC: HO.HBST 11:58
PROVIDERS: PCP Internal Medicine; Visit Provider Counselor Mental Health
DX: F34.9 Persistent mood [affective] disorder, unspecified (principal); M32.9 Systemic lupus erythematosus, unspecified; M06.9 Rheumatoid arthritis, unspecified; G47.30 Sleep apnea, unspecified
CPT/HCPCS: 90832

== ENCOUNTER → 2023-02-20 11:58 | Outpatient (BNVA) | payer OTHER, SELFPAY | PROVIDERS: PCP Internal Medicine; Visit Provider Counselor Mental Health ==

== ENCOUNTER 2023-03-24 10:30 | Outpatient (AMB) | payer OTHER, SELFPAY ==
--- NOTE | 2023-03-24 10:42 | A.OFFVIS_ITS ---
Intake VS Expanded 03/24/23 10:42 Height 5 ft 3 in Intake Visit Reasons: VIDEO F/U SWL Allergies aspirin [ASA] Allergy (Unknown, Verified 09/24/22 09:43) UNKNOWN diclofenac [DICLOFENAC] Allergy (Unknown, Verified 09/24/22 09:43) AFFECTED KIDNEYS latex [LATEX] Allergy (Unknown, Verified 09/24/22 09:43) HIVES naproxen [From ALEVE] Allergy (Unknown, Verified 09/24/22 09:43) KIDNEY ISSUES NSAIDS (Non-Steroidal Anti-Inflamma [NSAIDS (NON-STEROIDAL ANTI-INFLAMMA] Allergy (Unknown, Verified 09/24/22 09:43) AFFECT KIDNEYS nut - unspecified [NUTS] Allergy (Unknown, Verified 09/24/22 09:43) SWELLING orange [ORANGES] Allergy (Unknown, Verified 09/24/22 09:43) UNKNOWN penicillin V Allergy (Unknown, Verified 09/24/22 09:43) Unknown Penicillins [PENICILLINS] Allergy (Unknown, Verified 09/24/22 09:43) UNKNOWN strawberry [STRAWBERRY] Allergy (Unknown, Verified 09/24/22 09:43) UNKNOWN zolpidem [From AMBIEN] Allergy (Unknown, Verified 09/24/22 09:43) UNKNOWN Aspir-81 Allergy (Intermediate, Uncoded 09/16/22 10:37) Hives HPI HPI Comments History of Present Illness Details SWL follow up for revision of LSG. 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 Does NOT have weight today. Last appt in October 255 lbs, her dentures broke and can not eat most foods. Her gums are very sore. PCP, Dr Messina has referred her to Physical Therapy Instructor in [place]. Taking care of her dad at his home 24 hours per day, can not go to gym and has variable wake hours Meal plan: does not like bars 1 - 1.5 hours after waking has Fairlife 2-3 hours later has meal of 1/2 cup mash ed potatoes and soft meat (chicken with gravy) 3 hours later - yogurt Exercise - home videos, Silver Sneakers sitting exercise - 30 minutes each - does 4 in a row, 7 days per week. Pre op work up completed as follows: SW classes - 0, will be given access again today appts -Lise x 3, not cleared RD appts - has follow up in September- not seen, needs to be rescheduled, now cleared H pylori - negative by biopsy EGD Labs - done CXR - normal ECG - abnormal, Had appt withDr Chintan on 09/16/22 - reviewed all testing and cardiac cath - cleared for surgery. UGI -Evidence of previous gastric sleeve surgery with small sliding hiatal hernia. Otherwise upper GI Gastrografin study is unremarkable.? ULS - fatty liver, R 19.6, L 9.3 cm SS - moderately severe IVY - cammie shepherd had difficulty keeping nasal and did not have accurate readings overnight - will reorder as a labs tudy. EGD - 10/22/22 An upper endoscopy was performed next, the oropharynx and esophagus appeared within the normal limits. There was no hiatal hernia. The z- line was irregular with tongues of gastric mucosa protruding into the esophagus in about 50% circumference. Two biopsies were obtained from the distal esohagus 2-3 cm proximal to the GE junction and two additional biopsies from the GE sulaiman ction. The sleeve was entered. There was redundancy proximally whereas the distal sleeve had an even caliber throughout. and it appeared to be of normal size. Because of the uneven caliber proximally some amount of food was retained in the proximal fundus. There was mild gastritis at distal antrum. There was moderate amount of bile reflux within the sleeve bt not at the esophagus. There was no stricture or ulcer. Biopsies were obtained from the proximal sleeve as well as the distal antrum. No significant bleeding was noted from any of the biopsy sites. The scope was then advanced into the duodenum which appeared to be normal as well. Sucralfate bid for gastritis- patient states was never notified of prescription. I resent it today. [facility] Medical History Essential hypertension Hyperthyroidism Morbid (severe) obesity due to excess calories Other and unspecified hyperlipidemia Surgical History H/O gastric sleeve History of hernia repair History of right hip replacement History of spinal surgery History of tonsillectomy Family History Father No problems noted. Mother Cardiomyopathy Sister Leukemia COVID Brother Lung disease Sister Kidney disease Son Cardiomyopathy Daughter No problems noted. Daughter Lupus Daughter Autism Polycystic kidney Social History Alcohol intake: never Patient Tobacco Use Status: Former Tobacco user Quit Date: 11/2021 Years Smoked: 15 +/- Assessment & Plan Assessment & Plan (1) Morbid (severe) obesity due to excess calories: Code(s): E66.01 - Morbid (severe) obesity due to excess calories Plan: Pt has not had an appt with me in over 4 months for revision of her LSG. She is now taking care of her ill father and needs dentures - all of this makes it hard for her to adhere to her meal plan. No weight today- she will send me her weight electronically today or tomorrow and I will make a plan for her once received. meal plan, due to soore gums and no teeth either 3 shakes and 1 yogurt per day OR 2 shakes, 1 yogurt nd 1 meal of 6 forks each protein and vegetabled Continue her present exercise for now. Need information regarding pulmonology appt. Needs follow up with Lise and her own therapist. Next appt with me in 3weeks, once send me her weight. Patient is still morbidly obese and is not considered stable at this time. I spent 29 minutes in total speaking with the patient via video conference counseling , reviewing records and charting in patients chart. . (2) H/O gastric sleeve: Comment: 2011 Dr Urbina Code(s): Z90.3 - Acquired absence of stomach [part of] Plan: see above Telehealth Telehealth Location of provider rendering services: practice address Location of patient: address on file Patient Identification confirmed using: Name, : Yes Telehealth method: video Patient verbally consented to treatment: Yes Patient verbally consented to billing insurance company: Yes Patient informed of any privacy concerns related to visit: Yes Coding Level of Care Code Tele Est Pt Level 4 (21356) Diagnoses Morbid (severe) obesity due to excess calories E66.01 H/O gastric sleeve Z90.3
== END 2023-03-24 11:02 | disposition home or self-care (01) ==
LOC: HO.HBS 10:56
PROVIDERS: PCP Internal Medicine; Visit Provider Physician Assistant
DX: E66.01 Morbid (severe) obesity due to excess calories (principal); Z90.3 Acquired absence of stomach [part of]; Z98.84 Bariatric surgery status
CPT/HCPCS: 99214

== ENCOUNTER → 2023-03-24 10:30 | Outpatient (BNVA) | payer OTHER, SELFPAY | PROVIDERS: PCP Internal Medicine; Visit Provider Physician Assistant ==

== ENCOUNTER 2023-10-10 10:15 | Outpatient (REF) | payer OTHER, SELFPAY ==
--- NOTE | ~2023-10-10 | MM_ITS ---
EXAMINATION: MM SCREENING DIGITAL BREAST TOMOSYNTHESIS, BILATERAL CLINICAL INFORMATION: Screening. Asymptomatic. COMPARISON: Mammography: This study is compared with prior exams dating back to 2020. TECHNIQUE: Digital breast tomosynthesis is performed in both the craniocaudal and mediolateral oblique views along with computer-aided detection (CAD). Synthesized 2D images are generated from the tomosynthesis. FINDINGS: The breasts are almost entirely fatty (ACR BI-RADS breast composition Category a). There are no significant masses, abnormal calcifications, or other abnormalities. MM/MM tomosynthesis screening BI IMPRESSION: No mammographic evidence of malignancy. ASSESSMENT: BI-RADS BI-RADS 1 - Negative RECOMMENDATION: Routine annual mammography screening. 1 year F/U This examination should not preclude the clinical evaluation of a suspicious palpable abnormality. This patient's information was entered into a reminder system with a target due date for their next mammogram. Electronically signed by: Minal Kelley MD 11/08/2023 03:31 PM EDT
== END 2023-10-10 10:16 | disposition home or self-care (01) ==
LOC: HO.MAMMO 10:15
PROVIDERS: PCP Internal Medicine; Visit Provider Internal Medicine
DX: Z12.31 Encounter for screening mammogram for malignant neoplasm of breast (principal)
CPT/HCPCS: 77063; 77067

== ENCOUNTER → 2023-10-10 10:30 | Outpatient (BNV) | payer OTHER, SELFPAY | PROVIDERS: PCP Internal Medicine; Visit Provider Radiology Diagnostic Radiology | DX: Z12.31 Encounter for screening mammogram for malignant neoplasm of breast (principal) | CPT/HCPCS: 77063; 77067 ==

== ENCOUNTER 2023-12-31 13:08 | Outpatient (REF) | payer OTHER, SELFPAY ==
[2023-12-31 08:29] VITALS: PULSE 94; RESP 16; O2SAT 96
--- NOTE | 2023-12-31 13:11 | PFT_ITS ---
Flows: FEV1: 110 % of predicted at 2.23 L FVC: 108 % of predicted at 2.77 L FEV1/FVC: 81 % Bronchodilator response: Not performed Volumes: Total lung capacity: 79 % of predicted at 3.87 L Residual volume: 61 % of predicted at 1.03 L Slow vital capacity: 88 % of predicted at 2.83 L Expiratory reserve volume: 23 % of predicted at 0.18 L Diffusion capacity: Normal Impression: Mild restrictive ventilatory defect with no bronchodilator response. Decreased expiratory reserve volume suggests extrathoracic restriction likely secondary to abdominal obesity. MTDD
== END 2023-12-31 13:09 | disposition home or self-care (01) ==
LOC: HO.RESP 13:08
PROVIDERS: PCP Internal Medicine; Visit Provider Internal Medicine
DX: R06.02 Shortness of breath (principal)
CPT/HCPCS: 94010; 94640; 94727; 94729

== ENCOUNTER → 2023-12-31 13:11 | Outpatient (BNV) | payer OTHER, SELFPAY | PROVIDERS: PCP Internal Medicine; Visit Provider Internal Medicine Pulmonary Disease | DX: R06.02 Shortness of breath (principal) | CPT/HCPCS: 94060; 94727; 94729 ==

== ENCOUNTER 2024-02-11 13:58 | Outpatient (REF) | payer OTHER, SELFPAY | END 2024-02-11 13:59 | disposition home or self-care (01) | LOC: HO.US 13:58 | PROVIDERS: PCP Internal Medicine; Visit Provider Internal Medicine | DX: R22.9 Localized swelling, mass and lump, unspecified (principal) | CPT/HCPCS: 76536 ==

== ENCOUNTER 2024-05-19 14:53 | Outpatient (REF) | payer OTHER, SELFPAY ==
[2024-05-19 18:49] LABS: Alanine Aminotransferase 19 U/L (0-31); Albumin Level 4.1 g/dL (3.5-5.0); Alkaline Phosphatase 59 U/L (39-117); Anion Gap 10 (12-20); Aspartate Amino Transferase 19 U/L (5-31); Bilirubin Total 0.2 mg/dL (0.0-1.0); Blood Urea Nitrogen 21 mg/dL (9-16); Calcium 9.5 mg/dL (8.4-10.2); Carbon Dioxide 24 mmol/L (22-29); Chloride 110 mmol/L (96-108); Cholesterol 147 mg/dL (<200); Estimated Glomerular Filt Rate 53; Glucose Random 84 mg/dL (60-115); HDL Cholesterol 69 mg/dL (>40); LDL Cholesterol Calculated 56 mg/dL (<100); Sodium 140 mmol/L (135-145); Total Protein 7.2 g/dL (6.5-8.0); Triglycerides 113 mg/dL (<150)
[2024-05-19 19:05] LABS: TSH reflex Free T4 1.63 uIU/mL (0.32-4.0)
== END 2024-05-19 14:54 | disposition home or self-care (01) ==
LOC: HO.CHCLDS 14:53
PROVIDERS: Visit Provider Internal Medicine
DX: I10 Essential (primary) hypertension (principal); E03.9 Hypothyroidism, unspecified; E78.00 Pure hypercholesterolemia, unspecified
CPT/HCPCS: 36415; 80053; 80061; 84443

== ENCOUNTER 2024-10-19 10:57 | Outpatient (REF) | payer OTHER, SELFPAY ==
--- OUTSIDE RECORDS SUMMARY | 2024-10-19 11:51 | XMS_ITS | Encounter Summary ---
Author Organization [employer] Address [address] [place] [address] Care Team Providers Care Magazine Editor Name Role Phone Riley Al MD Primary Care Provider [phone] Reason for Visit * Reason Comments Med Refill Encounter Details Date Type Department Care Team (Late Contact Info) Description 03/28/2022 Refill [facility] [address], [place] [id number] Riley Al MD [address] [place] [address] Chronic pain syndrome; Dizziness Social History Tobacco Use Types Packs/Day Years Used Date Smoking Tobacco: Unknown Passive Smoke Exposure: Never Smokeless Tobacco: Never Alcohol Use Standard Drinks/Week Comments Never 0 (1 standard drink = 0.6 oz pur e alcohol) Comments Unknown Sex and Gender Information Value Date Recorded Sex Assigned at Female 12/24/2021 10:35 AM EDT Legal Sex Female 10:35 AM EDT Gender Identity Female 12/24/2021 10:35 AM EDT Sexual Orientation Straight 12/24/2021 10 :35 AM EDT COVID-19 Exposure Response Date Recorded In the last 10 days, have yo u been in contact with someone who was confirmed or suspected to have Coronavirus/COVID-19? No / Unsure 03/14/2022 1:07 PM EST documented as of this encounter Plan of Treatment Upcoming Encounters Date Type Department Care Team ([facility] Contact Info) Description 11/15/2024 10:30 AM EDT Telemedicine [facility] [address] [place] [address] Fabiola Max, OJE [address] [place] [address] 11/22/2024 9:00 AM EDT Office Visit [facility] [address] [place] [address] Riley Al MD [address] [place] [address] 12/28/2024 9:30 AM EST Office Visit [facility] [address] [place], [place] [phone] Sarai Leong OD [address] [place] [address] documented as of this encounter Visit Diagnoses Diagnosis Chronic pain syndrome Dizziness Dizziness and giddiness documented in this encounter Care Teams Magazine Editor Relationship Specialty Start Date End Date Riley Al MD [address] [place] [address] PCP - General Internal Medicine 04/03/18 documented as of this encounter
--- OUTSIDE RECORDS SUMMARY | 2024-10-19 11:51 | XMS_ITS | Encounter Summary ---
Author Organization [facility] Address [address] [place] [address] Care Team Providers Care Complex Care Nurse Name Role Phone Kwesi Alves MD Primary Care Provider [phone] Kwesi Alves MD Primary Care Provider [phone] Kwesi Alves MD Unavailable [phone] Reason for Visit * Reason Onset Date Comments PT-1 11/30/2013 PT 1 form Encounter Details Date Type Department Care Team Description 11/30/2013 Telephone Adult Medicine - [place] [address] [place] [address] Kwesi Alves MD [address] [place] [address] PT-1 (PT 1 form) Social History Tobacco Use Types Packs/Day Years Used Date Smoking Tobacco: Former Comments:quit over 20 yrs ag o Alcohol Use Standard Drinks/Week Comments Yes 0 (1 standard drink = 0.6 oz pur e alcohol) rare Sex Assigned at Date Recorded Not on file documented as of this encounter Miscellaneous Notes * Telephone Encounter - Becky Lucio M.A. - 12/05/2013 9:29 AM EDT Submitted online today #[id number] * Telephone Encounter - Belinda Guadarrama - 11/30/2013 3:32 PM EDT Patients [facility] Pt. demographics and [facility] Ins information verified YES Is this a NEW request or a Renewal? renewal Mailing address: [address] [place] [id number] Is the mailing address accurate? YES. If no, update all screens in Registration Has [employer] [facility] Insurance coverage been verified? YES Name (first & last) of treating provider Dr. Sarita Alves Reason the patient is seeing the above provider: follow-up / Fibromyalgia Address/zip for treating provider [address] [place] [address] Phone # of treating provider [phone] What specialty is this provider? Internal Medicine How often they see them visits per week, visits per month How long will they require these services weeks, 12 Months When is the visit scheduled? Doesn't have an appt scheduled Medical reason why they are unable to use public transportation: Patient Active Problem List Diagnosis Code ??? UNSPECIFIED ACQUIRED HYPOTHYROIDISM 244.9 ??? fibromyalgia 729.1 ??? hypertension 401.1 ??? Unspecified Anemia 285.9 ??? Osteoarthritis of Hip 715.95 ??? Vitamin D Deficiency 268.9 ??? Status following gastric banding surgery for weight loss V45.86 ??? Allergic rhinitis 477.9 ??? 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 YES Will they have an alternative pick-up address? NO PT DOES NOT NEED RELEASE OF INFORMATION SIGNED documented in this encounter Plan of Treatment Not on file documented as of this encounter Visit Diagnoses Not on filedocumented in this encounter Care Teams Complex Care Nurse Relationship Specialty Start Date End Date Kwesi Alves MD [address] [place], [place] PCP - General 04/08/03 11/28/14 Kwesi Alves MD [address] [place], [place] PCP - General 11/29/14 Kwesi Alves, [facility] [place] [address] 11/29/14 documented as of this encounter
--- OUTSIDE RECORDS SUMMARY | 2024-10-19 11:51 | XMS_ITS | Encounter Summary ---
Author Organization [employer] Address [address] [place] [address] 7 [place] [address] Care Team Providers Care Health Unit Supervisor Name Role Phone Riley Al MD Primary Care Provider [phone] Reason for Referral * Medications - Closed Specialty Diagnoses / Procedures Referred By Contac t Referred To Contact Diagnoses Chronic pain syndrome Riley Al MD [address] [place] [address] Phone: tel: fax: Referral ID Status Reason Start Date Expiration Date Visits Re quested Visits Authorized [id number] Closed 06/23/2024 06/23/2025 1 1 Encounter Details Date Type Department Care Team ([facility] Contact Info) Description 06/21/2024 Orders Only [facility] MED & PEDS [address] [place] [address] Riley Al MD [address] [place] [address] Morbid obesity (CMS/HCC) (Primary Dx); Chronic pain syndrome Social History Tobacco Use Types Packs/Day Years Used Date Smoking Tobacco: Former Cigarettes Passive Smoke Exposure: Never Smokeless Tobacco: Never Alcohol Use Standard Drinks/Week Comments Never 0 (1 standard drink = 0.6 oz pur e alcohol) Depression Answer Date Recorded Patient Health Questionnaire-9 Score 24 02/19/2024 Patient Health Questionnaire-9 Score 24 02/19/2024 Last PHQ-9: Questionnaire Data Not on file 1 04/21/2023 Housing Stability Answer Date Recorded What is your housing situation today? I have karolina lopez 02/19/[address] you li ve. Do you have problems with any of the following? None of the above 02/19/2024 Food Insecurity Answer Date Recorded Within the past 12 months, y ou worried that your food would run out before you got money to buy more: Never True 02/19/2024 Within the past 12 months,th e food you bought just didn't last and you didn't have enough money to get more: Never True Transportation Answer Date Recorded In the past 12 months, has l ack of transportation kept you from medical appts, meetings, work or from getting things needed for daily living? No 02/19/2024 Utilities Answer Date Recorded In the past 12 months, has t he electric, gas, oil or water company threatened to shut off services in your home? No 02/19/2024 Depression Answer Date Recorded Patient Health Questionnaire-2 Score 6 02/19/2024 Internet Access Answer Date Recorded Internet Access Q1 Yes 02/19/2024 Internet Access Q2 Not on file 02/19/2024 Comments Unknown Sex and Gender Information Value Date Recorded Sex Assigned at Female 12/24/2021 10:35 AM EDT Legal Sex Female 10:35 AM EDT Gender Identity Female 12/24/2021 10:35 AM EDT Sexual Orientation Straight 12/24/2021 10 :35 AM EDT documented as of this encounter Plan of Treatment Upcoming Encounters Date Type Department Care Team ([facility] st Contact Info) Description 11/15/2024 10:30 AM EDT Telemedicine [facility] PED[facility] [address] [place] [address] Fabiola Max RN [address] [place] [address] 11/22/2024 9:00 AM EDT Office Visit [facility] [address] [place] [address] Riley Al MD [address] [place] [address] 12/28/2024 9:30 AM EST Office Visit [facility] OPTOMETRY [address] [place], [place] [phone] Sarai Leong OD [address] [place] [address] documented as of this encounter Visit Diagnoses Diagnosis Morbid obesity (CMS/HCC)- Primary Morbid obesity Chronic pain syndrome documented in this encounter Additional Health Concerns Assessment Noted Time PHQ-9 Depression Total Score: 24 024 11:43 AM EST documented as of this encounter Care Teams Health Unit Supervisor Relationship Specialty Start Date End Date Riley Al MD [address] [place] [address] PCP - General Internal Medicine 04/03/18 documented as of this encounter
--- OUTSIDE RECORDS SUMMARY | 2024-10-19 11:51 | XMS_ITS | Encounter Summary ---
Author Organization [employer] Address [address] [facility] 7t [place] [address] Care Team Providers Care Patient Accounts Specialist Name Role Phone Riley Al MD Primary Care Provider [phone] Reason for Visit * Reason Comments Med Refill Encounter Details Date Type Department Care Team ([facility] st Contact Info) Description 03/27/2022 Refill [facility] MED [facility] PEDS [address] [place], [place] [phone] Riley Al MD [address] [place] [address] Social History Tobacco Use Types Packs/Day Years [...] PM EST documented as of this encounter Miscellaneous Notes * Telephone Encounter - Kimberly Floyd RN - 03/28/2022 9:31 AM EST Call received from Neena with [facility] for med rec. Reviewed pt medications with Neena. No further questions from her at this time. documented in this encounter Plan of Treatment Upcoming Encounters Date Type Department Care Team (Late st Contact Info) Description 11/15/2024 10:30 AM EDT Telemedicine [facility] MED & PEDS [address] [place] [address] Fabiola Max RN [address] [place] [address] 11/22/2024 9:00 AM EDT Office Visit [facility] MED & PEDS [address] [place] [address] Riley Al MD [address] [place] [address] 12/28/2024 9:30 AM EST Office Visit [facility] OPTOMETRY [address] [place] [address] TarkaSarai, OD [address] [place] [address] documented as of this encounter Visit Diagnoses Not on filedocumented in this encounter Care Teams Patient Accounts Specialist Relationship Specialty Start Date End Date Riley Al MD [address] [place] [address] PCP - General Internal Medicine 04/03/18 documented as of this encounter
--- OUTSIDE RECORDS SUMMARY | 2024-10-19 11:51 | XMS_ITS | Encounter Summary ---
Author Organization [employer] Address [address] [facility] 7t [place] [address] Care Team Providers Care Oxyacetylene Welder Name Role Phone Riley Al MD Primary Care Provider [phone] Encounter Details Date Type Department Care Team ([facility] st Contact Info) Description 03/05/2024 Orders Only [facility] CH[facility] MED & PEDS [address] [place], [place] [phone] Riley Al MD [address] [place] [address] Essential hypertension (Primary Dx) Social History Tobacco Use Types Packs/Day Years [...] Info) Description 11/15/2024 10:30 AM EDT Telemedicine [facility] MED [facility] PEDS [address] [place] [address] Fabiola Max RN [address] [place] [address] 11/22/2024 9:00 AM EDT Office Visit [facility] [address] [place] [address] Riley Al MD [address] [place] [address] 12/28/2024 9:30 AM EST Office Visit [facility] OPTOMETRY [address] [place] [address] Sarai Leong, ENRRIQUE [address] [place] [address] documented as of this encounter Visit Diagnoses Diagnosis Essential hypertension- Primary Unspecified essential hypertension documented in this encounter Additional Health Concerns Assessment Noted Time PHQ-9 Depression Total Score: 24 024 11:43 AM EST documented as of this encounter Care Teams Oxyacetylene Welder Relationship Specialty Start Date End Date Riley Al MD [address] [place] [address] PCP - General Internal Medicine 04/03/18 documented as of this encounter
--- OUTSIDE RECORDS SUMMARY | 2024-10-19 11:51 | XMS_ITS | Encounter Summary ---
Author Organization [facility] Address [address] [facility] [address] [place] [address] Phone Care Team Providers Care Infectious Waste Technician Name Role Phone Riley Al MD Primary Care Provider Reason for Visit * Reason Comments Med Refill Encounter Details Date Type Department Care Team (Late st Contact Info) Description 09/26/2021 Refill [facility] [address] [place] [phone] Radha Sin PA Social History Tobacco Use Types Packs/Day Years Used Date Smoking Tobacco: Former Cigarettes 0 02/24/1977 - 02/24/1991 Comments:Smoking History Inf o:Every day Comments Unknown Sex and Gender Information Value Date Recorded Sex Assigned at Not on file Legal Sex Female 4:32 PM EST Gender Identity Not on file Sexual Orientation Not on file documented as of this encounter Plan of Treatment Upcoming Encounters Date Type Department Care Team (Late st Contact Info) Description 11/10/2024 9:20 AM EDT Office Visit [facility] [address] [place] [phone] Niels Zambrano MD [address] [place] [address] [place] [phone] documented as of this encounter Visit Diagnoses Not on filedocumented in this encounter Care Teams Infectious Waste Technician Relationship Specialty Start Date End Date Riley Al MD PCP - General 12/29/18 documented as of this encounter
--- OUTSIDE RECORDS SUMMARY | 2024-10-19 11:51 | XMS_ITS | Clinical Summary ---
Author Organization [facility] Address [address] [place] [address] Care Team Providers Care Ruffling Hemmer Automatic Name Role Phone Sarita Alves MD Primary Care Prov ider Allergies Active Allergy Reactions Criticality Noted Date Comments Lisinopril 04/22/2006 cough Naproxen Sodium Hives 10/29/2013 Penicillin G Procaine Wheezing 02/06/2005 Salicylates Hives 02/06/2005 Zolpidem Hallucinations 12/14/2012 Medications lidocaine (XYLOCAINE) 5 % ointment Apply topically 2 (two) times a day. a small amount to the affected area 6 Active fluticasone propionate (FLONASE) 50 mcg/actuation nasal spray Administer 2 sprays into each nostril 1 (one) time each day. 6 Active gabapentin (NEURONTIN) 400 mg capsule Take 1 capsule (400 mg total) by mouth 4 (four) times a day. 6 Active ibuprofen (ADVIL,MOTRIN) 800 mg tablet Take 1 tablet (800 mg total) by mouth 3 (three) times a day with meals. 6 Active tiZANidine (ZANAFLEX) 4 mg tablet Take 1 tablet (4 mg total) by mouth every 6 (six) hours if needed for muscle spasms. 6 Active hydroCHLOROthia zide (HYDRODIURIL) 25 mg tablet Take 1 tablet (25 mg total) by mouth 1 (one) time each day. 6 Active levothyroxine (SYNTHROID, LEVOTHROID) 112 mcg tablet Take 1 tablet (112 mcg total) by mouth 1 (one) time each day. 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 Dislocation on right Right THR 11/07 Anemia 08/25/2007 Overview (03/29/2024): Normal iron and normal electropheresis IMO Update Fall 2015 SLE (systemic lupus erythema tosus) ([facility] V24, [facility] V28) 06/26/2006 Hypertension 09/25/2005 Hypothyroidism 02/06/2005 Myalgia 02/06/2005 Overview (03/29/2024): Onset Surgical History Surgery Date Site/Laterality Comments HERNIA REPAIR PROCEDURE: REPAIR UMBILICAL HERNIA TONSILLECTOMY PROCEDURE: HISTORICAL TONSILLECTOMY OTHER SURGICAL HISTORY 1985 PROCEDURE: HISTORICAL TOTAL HYSTERECTOMY W/O BSO; COMMENT: Had cervical cancer. one ovary remains STOMACH SURGERY 2010 PROCEDURE: CT UNLISTED PROCEDURE STOMACH; COMMENT: gastric sleeve OTHER SURGICAL HISTORY 11/07 Right PROCEDURE: CT ARTHRP ACETBLR/PROX FEM PROSTC AGRFT/ALGRFT; COMMENT: had previous surg for inderjit dislocation OTHER SURGICAL HISTORY 12/08 PROCEDURE: CT ARTHRODESIS POSTERIOR INTERBODY 1 NTRSPC LUMBAR; COMMENT: L 2-4 Medical History Medical History Date Comments Morbid obesity ([facility] V24, [facility] V28) 02/06/2005 DX:Morbid obesity (HCC) Essential hypertension, benign 09/25/2005 D X:Essential hypertension, benign Myalgia and myositis, unspecified 02/06/2005 DX:Myalgia and myositis, unspecified; COMMENT: Onset Developmental hip dislocation age 9 DX :Developmental hip dislocation; COMMENT: right Allergic rhinitis 03/02/2012 DX:Allergic rh initis Status following gastric ban ding surgery for weight loss 01/10/2012 DX:Status following gastric banding surgery for weight loss Unspecified hypothyroidism 02/06/2005 DX:Un specified hypothyroidism Anemia, unspecified 08/25/2007 DX:Anemia, u nspecified Vitamin D deficiency 01/06/2009 DX:Vitamin D deficiency Other specified personal his tory presenting hazards to health(V15.89) DX:Other specifie d personal history presenting hazards to health(V15.89); COMMENT: CERVICAL Cervical cancer ([facility]/HCC V24 , [facility] V28) DX:Cervical cancer (HCC); CO MMENT: 1985. Chemo then surgery Hx of gastric bypass 06/27/2015 DX:Hx of ga stric bypass Family History Medical History Relation Name Comments Cataracts Father Prostate cancer Father Arthritis Mother hands, knees : OA Blindness Neg Hx Glaucoma Neg Hx Macular degeneration Neg Hx Strabismus Neg Hx Relation Name Status Comments Father Alive cataract, HTN Mother Social History Tobacco Use Types Packs/Day Years Used Date Smoking Tobacco: Former Smokeless Tobacco: Never Alcohol Use Standard Drinks/Week Comments Yes 0 (1 standard drink = 0.6 oz pur e alcohol) Comments Unknown Sex and Gender Information Value Date Recorded Sex Assigned at Not on file Legal Sex Female 9:56 AM EST Gender Identity Not on file Sexual Orientation Not on file Obstetrics History Plan of Treatment Health Maintenance Due Date Last Done Comments Breast Cancer Screening 1962 COVID-19 Vaccine (#1) 1967 DTaP,Tdap,and Td Vaccines (1 - Tdap) 1981 Zoster Vaccines (1 of 2) 1981 Pneumococcal Vaccine: 50+ Ye ars (1 of 1 - PCV) 02/15/2012 Cholesterol Screening (Lipid Panel) 03/25/2023 03/06/2015 Colorectal Cancer Screening: Colonoscopy 03/25/2023 HIV Screening 03/25/2023 Hepatitis C Screening 03/25/2023 Social Influencers of Health Screening 03/25/2023 Hypertension/CHF/CAD Annual BMP Blood Test 04/11/2023 07/27/2014 Depression Screening 02/25/2024 Influenza Vaccine (#1) 2024 RSV Immunization Adult Patie nts (1 - 1-dose 75+ series) 2037 HIB Vaccines Aged Out No longer eligi ble based on patient's age to complete this topic HPV Vaccines Aged Out No longer eligi ble based on patient's age to complete this topic Hepatitis A Vaccines Aged Out No long er eligible based on patient's age to complete this topic Hepatitis B Vaccines Aged Out No long er eligible based on patient's age to complete this topic IPV Vaccines Aged Out No longer eligi ble based on patient's age to complete this topic MMR Vaccines Aged Out No longer eligi ble based on patient's age to complete this topic Meningococcal ACWY Vaccine Aged Out N o longer eligible based on patient's age to complete this topic Meningococcal B Vaccine Aged Out No l onger eligible based on patient's age to complete this topic RSV Immunization Patients Un mariella 20 months Aged Out No longer eligible b ased on patient's age to complete this topic Varicella Vaccines Aged Out No longer eligible based on patient's age to complete this topic Procedures Procedure Name Priority Date/Time Associated Diagnosis Comments LIPID PANEL Routine 03/06/2015 ANNUAL BMP BLOOD TEST Routine 07/27/2014 from Last 3 Months or Most Recently Relevant to Health Maintenance Results * (ABNORMAL) Lipid panel (03/06/2015) LDL/HDL Ratio 2 0 - 4 Triglycerides 122 0 - 150 mg/dL Cholesterol 331(A) 0 - 200 mg/dL HDL 156 >=40 mg/dL LDL Cholesterol 151(A) 0 - 100 mg/dL Blood Venous blood specimen / Unknown Historical Provider LAB BLOOD ORDERABLES Aracelis l Result * Annual BMP Blood Test (07/27/2014) Pathologist [facility] Annual BMP Blood Test abstracted Historical Provider HEALTH MAINTENANCE Final Result from Last 3 Months or Most Recently Relevant to Health Maintenance Care Teams Ruffling Hemmer Automatic Relationship Specialty Start Date End Date Sarita Alves MD PCP - General 04/08/03
--- OUTSIDE RECORDS SUMMARY | 2024-10-19 11:51 | XMS_ITS | Encounter Summary ---
Author Organization [facility] Address [address] [facility] [address] [place] [address] Phone Care Team Providers Care Neckties Painter Name Role Phone Riley Al MD Primary Care Provider Encounter Details Date Type Department Care Team (Late st Contact Info) Description 06/17/2022 Documentation Only [facility] [address] [place] [address] Niels Zambrano MD [address] [place] [address] [place] [place] [address] Social History Tobacco Use Types Packs/Day Years [...] Office Visit [facility] [address] [place] [address] Niels Zambrano MD [address] [place] [address] [place] [place] [address] documented as of this encounter Visit Diagnoses Not on filedocumented in this encounter Care Teams Neckties Painter Relationship Specialty Start Date End Date Riley Al MD PCP - General 12/29/18 documented as of this encounter
--- OUTSIDE RECORDS SUMMARY | 2024-10-19 11:51 | XMS_ITS | Encounter Summary ---
Author Organization [facility] Address [address] [place] [address] Care Team Providers Care Branch Sales Manager Name Role Phone Kwesi Alves MD Primary Care Provider [phone] Kwesi Alves MD Primary Care Provider Kwesi Alves MD Unavailable [phone] Reason for Visit * Reason Onset Date Comments refill request 12/14/2013 Encounter Details Date Type Department Care Team Description 12/14/2013 Refill Adult Medicine - [place] [address] [place] [address] Kwesi Alvse MD [address] [place] [address] refill request Social History Tobacco Use Types Packs/Day Years Used Date Smoking Tobacco: Former Comments:quit over 20 yrs ag o Alcohol Use Standard Drinks/Week Comments Yes 0 (1 standard drink = 0.6 oz pur e alcohol) rare Sex Assigned at Date Recorded Not on file documented as of this encounter Miscellaneous Notes * Telephone Encounter - Iris Smith M.A. - 12/14/2013 4:48 PM EDT Script written and is in patient pick-up. * Telephone Encounter - Iris Smith M.A. - 12/14/2013 4:14 PM EDT Controlled substance contract and last issue date of medication reviewed. Patient is due for medication. Component Value Date URINEOXYCOD NEGATIVE 02/10/2013 URBENZO NEGATIVE 02/10/2013 URAMPHETAMIN NEGATIVE 02/10/2013 URMARIJUANA NEGATIVE 02/10/2013 UROPIATES POSITIVE 02/10/2013 URBARBITUATE NEGATIVE 02/10/2013 URCOCAINE NEGATIVE 02/10/2013 HYDROCODONE 204 02/10/2013 * Telephone Encounter - Linda Timmons - 12/14/2013 4:00 PM EDT Patient would like script to be: PLACED IN PATIENT POTATO INSPECTOR WHEN WAS THE PATIENT'S LAST APPOINTMENT IN ADULT MEDICINE? 10-29-2013 WHEN WAS THE LAST TIME THE PATIENT SAW THEIR PCP? Same as above Does patient have an upcoming appointment? Yes 05-02-2014 (THE MEDICATION REQUESTED IS ON THE MED LIST ABOVE) All of the medications requested were on the CURRENT MEDS list Did you check the Pharmacy information above?: NO Patient wants: 30 -day supply Is this a mail order prescription request ? NO Patients current insurance carrier is: Payor: [facility] / Plan: [facility] MEDICARE COMPLETE $20 [id number] / Product Type: PPO [id number] documented in this encounter Plan of Treatment Not on file documented as of this encounter Visit Diagnoses Diagnosis Osteoarthritis of hip- Primary Osteoarthrosis, unspecified whether generalized or localized, pelvic region and thigh documented in this encounter Care Teams Branch Sales Manager Relationship Specialty Start Date End Date Kwesi Alves MD [address] [place] [address] PCP - General 04/08/03 11/28/14 Kwesi Alves MD [address] [place] [address] PCP - General 11/29/14 Kwesi Alves MD [address] [place] [address] 11/29/14 documented as of this encounter
--- OUTSIDE RECORDS SUMMARY | 2024-10-19 11:51 | XMS_ITS | Encounter Summary ---
Author Organization [employer] Address [address] [facility] 7 [place] [address] Care Team Providers Care Racing Car Driver Name Role Phone Riley Al MD Primary Care Provider [phone] Reason for Visit * Reason Onset Date Comments Med Refill 06/07/2024 Encounter Details Date Type Department Care Team (Late st Contact Info) Description 06/07/2024 Telephone [facility] MEDICINE [address] [place] [address] Riley Al MD [address] [place] [address] Med Refill Social History Tobacco Use Types Packs/Day Years [...] your housing situation today? I have karolina john 02/19/[address] you li [...] AM EDT documented as of this encounter Miscellaneous Notes * Telephone Encounter - Chet Sinha - 06/07/2024 9:10 AM EDT TC from pt requesting medication refill. Medications needing refill : acetaminophen-codeine (Tylenol w/ Codeine #3) 300-30 MG tablet To be sent to: [facility] [address] [place] [address] documented in this encounter Plan of Treatment Upcoming Encounters Date Type Department Care Team (Late st Contact Info) Description 11/15/2024 10:30 AM EDT Telemedicine [facility] MED & PEDS [address] [place] [address] Fabiola Max RN [address] [place] [address] 11/22/2024 9:00 AM EDT Office Visit [facility] PED[facility] [address] [place] [address] Riley Al MD [address] [place] [address] 12/28/2024 9:30 AM EST Office Visit [facility] OPTOMETRY [address] [place] [address] Sarai Leong, OD [address] [place] [address] documented as of this encounter Visit Diagnoses Not on filedocumented in this encounter Additional Health Concerns Assessment Noted Time PHQ-9 Depression Total Score: 24 024 11:43 AM EST documented as of this encounter Care Teams Racing Car Driver Relationship Specialty Start Date End Date Riley Al MD [address] [place] [address] PCP - General Internal Medicine 04/03/18 documented as of this encounter
--- OUTSIDE RECORDS SUMMARY | 2024-10-19 11:51 | XMS_ITS | Encounter Summary ---
Author Organization [facility] Address [address] [place] [address] Care Team Providers Care Photovoltaic Solar Cell Designer Name Role Phone Kwesi Alves MD Primary Care Provider [phone] Kwesi Alves MD Primary Care Provider [phone] Kwesi Alves MD Unavailable [phone] Encounter Details Date Type Department Care Team Description 04/13/2013 Orders Only Adult Medicine - [address] [address] Kwesi Alves MD [address] [place] [address] Social History Tobacco Use Types Packs/Day Years Used Date Smoking Tobacco: Never Alcohol Use Standard Drinks/Week Comments Yes 0 (1 standard drink = 0.6 oz pur e alcohol) rare Sex Assigned at Date Recorded Not on file documented as of this encounter Plan of Treatment Not on file documented as of this encounter Visit Diagnoses Not on filedocumented in this encounter Care Teams Photovoltaic Solar Cell Designer Relationship Specialty Start Date End Date Kwesi Alves MD [address] [place] [address] PCP - General 04/08/03 11/28/14 Kwesi Alves MD [address] [place] [address] PCP - General 11/29/14 Kwesi Alves, [address] [place] [address] 11/29/14 documented as of this encounter
--- OUTSIDE RECORDS SUMMARY | 2024-10-19 11:51 | XMS_ITS | Encounter Summary ---
Author Organization [employer] Address [address] [facility] 7t [place] [address] Care Team Providers Care Line Lead Name Role Phone Riley Al MD Primary Care Provider [phone]- [phone] Reason for Visit * Reason Comments Med Refill Encounter Details Date Type Department Care Team (Late st Contact Info) Description 03/18/2022 Refill [facility] [address] [place] [address] Riley Al MD [address] [place] [address] Chronic pain syndrome; Dizziness Social History Tobacco [...] encounter Miscellaneous Notes * Telephone Encounter - Riley Al MD - 03/20/2022 10:00 AM EST Pt called. Normal xray. No acute intervention needed for now. Pt is to keep her scheduled appointment w/ Cardiology documented in this encounter Plan of Treatment Upcoming Encounters Date Type Department Care Team ([facility] st Contact Info) Description 11/15/2024 10:30 AM EDT Telemedicine [facility] MED & PEDS 505 [place] [address] Fabiola Max, JOE 505 [place] [address] 11/22/2024 9:00 AM EDT Office Visit [facility] MED & PEDS [address] [place] [address] Riley Al MD 505 [place] [address] 12/28/2024 9:30 AM EST Office Visit [facility] OPTOMETRY [address] [place] [address] TarkaSarai, OD 267 [place] [address] documented as of this encounter Visit Diagnoses Diagnosis Chronic pain syndrome Dizziness Dizziness and giddiness documented in this encounter Care Teams Line Lead Relationship Specialty Start Date End Date Riley Al MD 505 [place] [address] PCP - General Internal Medicine 04/03/18 documented as of this encounter
--- OUTSIDE RECORDS SUMMARY | 2024-10-19 11:51 | XMS_ITS | Encounter Summary ---
Author Organization [employer] Address 75 [facility] 7 [place] [address] Care Team Providers Care Ingredient Mixer Name Role Phone Riley Al MD Primary Care Provider [phone]- [phone] Reason for Visit * Reason Onset Date Comments Prior Authorization 10/24/2023 Encounter Details Date Type Department Care Team (Late st Contact Info) Description 10/24/2023 Telephone [facility] MEDICINE [address] [place] [address] Riley Al MD 505 [place] [address] Prior Authorization Social History Tobacco Use Types Packs/Day Years Used Date Smoking Tobacco: Former Cigarettes Passive Smoke Exposure: Never Smokeless Tobacco: Never Alcohol Use Standard Drinks/Week Comments Never 0 (1 standard drink = 0.6 oz pur e alcohol) Depression Answer Date Recorded Patient Health Questionnaire-9 Score 9 04/16/2022 Housing Stability Answer Date Recorded What is your housing situation today? I have karolina lopez 12/09/[address] you li ve. Do you have problems with any of the following? None of the above 12/09/2022 Food Insecurity Answer Date Recorded Within the past 12 months, y ou worried that your food would run out before you got money to buy more: Never True 12/09/2022 Within the past 12 months,th e food you bought just didn't last and you didn't have enough money to get more: Never True Transportation Answer Date Recorded In the past 12 months, has l ack of transportation kept you from medical appts, meetings, work or from getting things needed for daily living? No 12/09/2022 Utilities Answer Date Recorded In the past 12 months, has t he electric, gas, oil or water company threatened to shut off services in your home? No 12/09/2022 Depression Answer Date Recorded Patient Health Questionnaire-2 Score 1 04/16/2022 Comments Unknown Sex and Gender Information Value Date Recorded Sex Assigned at Female 12/24/2021 10:35 AM EDT Legal Sex Female 10:35 AM EDT Gender Identity Female 12/24/2021 10:35 AM EDT Sexual Orientation Straight 12/24/2021 10 :35 AM EDT documented as of this encounter Miscellaneous Notes * Telephone Encounter - Dayo Zuniga - 11/07/2023 12:13 PM EDT Tc from [facility] requesting status on message prior. * Telephone Encounter - Kanwal Gillespie RN - 10/30/2023 9:28 AM EDT Please advise if you would like to initiate PA for cough syrup. * Telephone Encounter - Daoy Zuniga - 10/24/2023 12:58 PM EDT Tc from [facility] requesting status on PA for rosuvastatin (Crestor) 20 MG tablet sent on 10/20. Please contact [facility] at [phone]. documented in this encounter Plan of Treatment Upcoming Encounters Date Type Department Care Team ([facility] st Contact Info) Description 11/15/2024 10:30 AM EDT Telemedicine [facility] MED & PEDS 505 [place] [address] Fabiola Max, RN 505 [place] [address] 11/22/2024 9:00 AM EDT Office Visit [facility] [address] [place], [place] [phone] Riley Al MD 505 [place], [place] [phone] 12/28/2024 9:30 AM EST Office Visit [facility] OPTOMETRY [address] [place] [address] Sarai Leong, OD [address] [place] [address] documented as of this encounter Visit Diagnoses Not on filedocumented in this encounter Additional Health Concerns Assessment Noted Time PHQ-9 Depression Total Score: 9 04/16/19 23 10:03 AM EST documented as of this encounter Care Teams Ingredient Mixer Relationship Specialty Start Date End Date Riley Al MD 505 [place] [address] PCP - General Internal Medicine 04/03/18 documented as of this encounter
--- OUTSIDE RECORDS SUMMARY | 2024-10-19 11:51 | XMS_ITS | Encounter Summary ---
Author Organization [facility] Address [address] [place] [address] Care Team Providers Care Ocular Pathologist Name Role Phone Kwesi Alves MD Primary Care Provider [phone] Kwesi Alves MD Primary Care Provider + [phone] Kwesi Alves MD Unavailable [phone] Reason for Visit * Reason Onset Date Comments muscle aches 08/11/2013 Encounter Details Date Type Department Care Team Description 08/11/2013 Telephone Adult Medicine - [place] [address] [place] [address] Kwesi Alves MD [address] [place] [address] muscle aches Social History Tobacco Use Types Packs/Day Years Used Date Smoking Tobacco: Former Comments:quit over 20 yrs ag o Alcohol Use Standard Drinks/Week Comments Yes 0 (1 standard drink = 0.6 oz pur e alcohol) rare Sex Assigned at Date Recorded Not on file documented as of this encounter Miscellaneous Notes * Telephone Encounter - Jaye Block L.P.N. - 08/12/2013 1:03 PM EDT lmtcb * Telephone Encounter - Kwesi Alves MD - 08/12/2013 12:01 PM EDT To eat some thing with a lot of potasium in it can try the emergen C an over the counter drink * Telephone Encounter - Apple Campos - 08/12/2013 11:18 AM EDT Pt states she is allergic to oranges and would like to know if there is an alternative recommendation. Please advise. * Telephone Encounter - Viktoria WilkersonP.NLinda - 08/11/2013 11:05 AM EDT msg left on voice mail * Telephone Encounter - Kwesi Alves MD - 08/11/2013 10:53 AM EDT Order signed should also consider drinking some orange juice * Telephone Encounter - Gretta Mares M.A. - 08/11/2013 10:38 AM EDT Controlled substance contract and last issue date of medication reviewed. Patient is due for medication. Component Value Date URINEOXYCOD NEGATIVE 02/10/2013 URBENZO NEGATIVE 02/10/2013 URAMPHETAMIN NEGATIVE 02/10/2013 URMARIJUANA NEGATIVE 02/10/2013 UROPIATES POSITIVE 02/10/2013 URBARBITUATE NEGATIVE 02/10/2013 URCOCAINE NEGATIVE 02/10/2013 HYDROCODONE 204 02/10/2013 * Telephone Encounter - Viktoria Tran L.P.NLinda - 08/11/2013 10:31 AM EDT Pt states she has been going to PT for the past two weeks. States during the night she wakes up w/a charley horse in her leg . ? Of not drinking enough fluids. States she thinks she drinks enough. Advised to increase her fluids during the day. Pt is requesting her refill on her percocet. She is due * Telephone Encounter - Linda Timmons - 08/11/2013 10:03 AM EDT Symptoms patient is presenting: muscle pain while doing PT How long has patient had these symptoms?: ongoing PCP: Sarita Alves Payor: [facility] / Plan: [employer] MEDICARE COMPLETE $20 [id number] / Product Type: PPO [id number] documented in this encounter Plan of Treatment Not on file documented as of this encounter Visit Diagnoses Diagnosis fibromyalgia- Primary Mylagia and myositis, unspecified documented in this encounter Care Teams Ocular Pathologist Relationship Specialty Start Date End Date Kwesi Alves MD [address] [place] [address] PCP - General 04/08/03 11/28/14 Kwesi Alves MD [address] [place] [address] PCP - General 11/29/14 Kwesi Alves MD [address] [place] [address] 11/29/14 documented as of this encounter
--- OUTSIDE RECORDS SUMMARY | 2024-10-19 11:51 | XMS_ITS | Encounter Summary ---
Author Organization [facility] Address [address] [facility] [address] [place] [address] Phone Care Team Providers Care Chief Nurse Name Role Phone Riley Al MD Primary Care Provider [phone] Encounter Details Date Type Department Care Team (Late st Contact Info) Description 03/14/2022 Documentation Only [facility] [address] [place] [phone] Radha Sin PA Social History Tobacco Use [...] Visit [facility] [address] [place] [phone] Niels Zambrano MD [address] [place] [address] [place] [phone] documented as of this encounter Visit Diagnoses Not on filedocumented in this encounter Care Teams Chief Nurse Relationship Specialty Start Date End Date Riley Al MD PCP - General 12/29/18 documented as of this encounter
--- OUTSIDE RECORDS SUMMARY | 2024-10-19 11:51 | XMS_ITS | Encounter Summary ---
Author Organization [facility] Address PO [facility] [address] [place] [address] Phone Care Team Providers Care Ice Hockey Coach Name Role Phone Riley Al MD Primary Care Provider Encounter Details Date Type Department Care Team (Late st Contact Info) Description 07/09/2022 Documentation Only [facility] [address] [place] [address] Niels Zambrano MD [address] [place] [address] [place] [address] Social History Tobacco Use Types [...] Visit [facility] [address] [place] [address] Niels Zambrano MD [address] [place] [address] [place] [address] documented as of this encounter Visit Diagnoses Not on filedocumented in this encounter Care Teams Ice Hockey Coach Relationship Specialty Start Date End Date Riley Al MD PCP - General 12/29/18 documented as of this encounter
--- OUTSIDE RECORDS SUMMARY | 2024-10-19 11:51 | XMS_ITS | Encounter Summary ---
Author Organization [facility] Address [address] [place] [address] Care Team Providers Care Engraving Press Operator Name Role Phone Kwesi Alves MD Primary Care Provider [phone] Kwesi Alves MD Primary Care Provider [phone] Kwesi Alves MD Unavailable [phone] Reason for Visit * Reason Comments E-prescribe Rx Request Encounter Details Date Type Department Care Team Description 02/27/2013 Refill Adult Medicine - [place] [address] [place] [address] Kwesi Alves MD [address] [place] [address] E-prescribe Rx Request Social History Tobacco Use Types Packs/Day Years Used Date Smoking Tobacco: Never Alcohol Use Standard Drinks/Week Comments Yes 0 (1 standard drink = 0.6 oz pur e alcohol) rare Sex Assigned at Date Recorded Not on file documented as of this encounter Miscellaneous Notes * Telephone Encounter - Gretta Mares M.A. - 03/01/2013 2:42 PM EST Faxed to pharmacy * Telephone Encounter - Kwesi Alves MD - 03/01/2013 11:03 AM EST Signed FYI updated * Telephone Encounter - Gretta Mares M.A. - 03/01/2013 10:39 AM EST Last filled 07/31/12 no csc please advise * Telephone Encounter - Zoie Quinn - 03/01/2013 9:18 AM EST Patient would like script to be: E-PRESCRIBED/FAXED TO PHARMACY WHEN WAS THE PATIENT'S LAST APPOINTMENT IN ADULT MEDICINE? 02/10/13 WHEN WAS THE LAST TIME THE PATIENT SAW THEIR PCP? Same as above Does patient have an upcoming appointment? Yes 04/16/13 (THE MEDICATION REQUESTED IS ON THE MED LIST ABOVE) All of the medications requested were on the CURRENT MEDS list Did you check the Pharmacy information above?: YES Patient wants: 30 -day supply Is this a mail order prescription request ? NO Patients current insurance carrier is: Payor: [place] [employer] Plan: [facility] MEDICARE COMPLETE $20 [id number] Product Type: PPO [id number] documented in this encounter Plan of Treatment Not on file documented as of this encounter Visit Diagnoses Not on filedocumented in this encounter Care Teams Engraving Press Operator Relationship Specialty Start Date End Date Kwesi Alves, [address] [place] [address] PCP - General 04/08/03 11/28/14 Kwesi Alves, [address] [place] [address] PCP - General 11/29/14 Kwesi Alves, [address] [place] [address] 11/29/14 documented as of this encounter
--- OUTSIDE RECORDS SUMMARY | 2024-10-19 11:51 | XMS_ITS | Encounter Summary ---
Author Organization [employer] Address [address] [facility] [address] 7t [place] [address] Care Team Providers Care Biomedical Equipment Technician Name Role Phone Riley Al MD Primary Care Provider [phone]- [phone] Encounter Details Date Type Department Care Team (Late Contact Info) Description 03/01/2022 Orders Only [facility] MED & PEDS [address] [place], [place] [phone] Gretchen Shrestha MD 505 [place] [address] Abnormal TSH (Primary Dx); Leukocytosis, unspecified type Social History Tobacco Use Types Packs/Day Years [...] suspected to have Coronavirus/COVID-19? No / Unsure 02/28/2022 10:08 AM EST documented as of this encounter Plan of Treatment Upcoming Encounters Date Type Department Care Team (Late Contact Info) Description 11/15/2024 10:30 AM EDT Telemedicine [facility] [address] [place] [address] Fabiola Max, JOE [address] [place], [place] 11/22/2024 9:00 AM EDT Office Visit [facility] MED & PEDS [address] [place], [place] [phone] Riley Al MD 505 [place] [address] 12/28/2024 9:30 AM EST Office Visit [facility] OPTOMETRY [address] [place] [address] Sarai Leong, OD [address] [place] [address] Scheduled Orders Name Type Priority Associated Diagnoses Orde r Schedule CBC (includes Differential and Platelets) with Smear Review Lab Routine Leukocytosis, unspecified type Expected: 03/01/2022 (Approximate), Expires: 03/01/2023 documented as of this encounter Procedures Procedure Name Priority Date/Time Associated Diagnosis Comments TSH W/REFLEX TO FT4 Routine 03/07/2022 9 :04 AM EST Abnormal TSH documented in this encounter Results * TSH W/Reflex to FT4 (03/07/2022 9:04 AM EST) TSH w/Reflex to FT4 4.23 0.40 - 4.50 mIU/L [facility] 03/07/2022 9:04 AM EST 03/07/2022 9:05 AM EST us Gretchen Shrestha MD LAB BLOOD ORDERABLES Final Re sult [facility] [address] [facility], [place] [address] [facility] [address] [facility], ([address]) [place] [address] documented in this encounter Visit Diagnoses Diagnosis Abnormal TSH- Primary Leukocytosis, unspecified type documented in this encounter Care Teams Biomedical Equipment Technician Relationship Specialty Start Date End Date Riley Al MD [address] [place] [address] PCP - General Internal Medicine 04/03/18 documented as of this encounter
--- OUTSIDE RECORDS SUMMARY | 2024-10-19 11:51 | XMS_ITS | Encounter Summary ---
Author Organization [employer] Address 75 [facility] 7 [place] [address] Care Team Providers Care Design Engineer Marine Equipment Name Role Phone Riley Al MD Primary Care Provider [phone] Reason for Visit * Reason Onset Date Comments Medication Question 11/03/2023 Encounter Details Date Type Department Care Team (Late st Contact Info) Description 11/03/2023 Telephone [facility] MEDICINE [address] [place] [address] Riley Al MD 505 [place] [address] Medication Question Social History Tobacco Use Types Packs/Day Years [...] encounter Miscellaneous Notes * Telephone Encounter - Robert Heart - 11/03/2023 11:11 AM EDT Tc from patient calling to report the [facility] does not have medication Semaglutide-Weight Management (Wegovy) 0.5 MG/0.5ML solution auto- injector in stock and would like it to be sent to [facility] documented in this encounter Plan of Treatment Upcoming Encounters Date Type Department Care Team (Late st Contact Info) Description 11/15/2024 10:30 AM EDT Telemedicine [facility] MED & PEDS [address] [place] [address] Fabiola Max RN [address] [place] [address] 11/22/2024 9:00 AM EDT Office Visit [facility] MED & PEDS [address] [place] [address] Riley lA MD 505 [place] [address] 12/28/2024 9:30 AM EST Office Visit [facility] OPTOMETRY [address] [place] [address] Sarai Leong, OD [address] [place] [address] documented as of this encounter Visit Diagnoses Diagnosis Morbid obesity (CMS/HCC) Morbid obesity documented in this encounter Additional Health Concerns Assessment Noted Time PHQ-9 Depression Total Score: 9 04/16/19 23 10:03 AM EST documented as of this encounter Care Teams Design Engineer Marine Equipment Relationship Specialty Start Date End Date Riley Al MD 505 [place] [address] PCP - General Internal Medicine 04/03/18 documented as of this encounter
--- OUTSIDE RECORDS SUMMARY | 2024-10-19 11:51 | XMS_ITS | Encounter Summary ---
Author Organization [employer] Address [address] [facility] [address] 7t [place] [address] Care Team Providers Care Drying Machine Operator Package Yarns Name Role Phone Riley Al MD Primary Care Provider [phone] Encounter Details Date Type Department Care Team ([facility] st Contact Info) Description 10/31/2023 Orders Only [facility] CHC MED & PEDS [address] [place], [place] [phone] Riley Al MD [address] [place] [address] Morbid obesity (CMS/HCC) (Primary Dx); COVID-19 Social History Tobacco Use Types Packs/Day Years [...] Upcoming Encounters Date Type Department Care Team ([facility] st Contact Info) Description 11/15/2024 10:30 AM EDT Telemedicine [facility] MED & PEDS [address] [place] [address] Fabiola Max, JOE [address] [place] [address] 11/22/2024 9:00 AM EDT Office Visit [facility] MED & PEDS [address] [place] [address] Riley Al MD [address] [place] [address] 12/28/2024 9:30 AM EST Office Visit [facility] OPTOMETRY [address] [place], [place] [phone] Sarai Leong, OD [address] [place] [address] documented as of this encounter Visit Diagnoses Diagnosis Morbid obesity (CMS/HCC)- Primary Morbid obesity COVID-19 documented in this encounter Additional Health Concerns Assessment Noted Time PHQ-9 Depression Total Score: 9 04/16/19 23 10:03 AM EST documented as of this encounter Care Teams Drying Machine Operator Package Yarns Relationship Specialty Start Date End Date Riley Al MD [address] [place] [address] PCP - General Internal Medicine 04/03/18 documented as of this encounter
--- OUTSIDE RECORDS SUMMARY | 2024-10-19 11:51 | XMS_ITS | Encounter Summary ---
Author Organization [facility] Address [address] [facility] [address] [place] [address] Phone Care Team Providers Care Biomedical Engineering Technologist Name Role Phone Riley Al MD Primary Care Provider Encounter Details Date Type Department Care Team (Late st Contact Info) Description 03/15/2022 Documentation Only [facility] [address] [place] [phone] Radha Sin PA Social History Tobacco Use [...] Visit [facility] [address] [place] [phone] Niels Zambrano MD [address] [place] [address] [place] [phone] documented as of this encounter Visit Diagnoses Not on filedocumented in this encounter Care Teams Biomedical Engineering Technologist Relationship Specialty Start Date End Date Riley Al MD PCP - General 12/29/18 documented as of this encounter
--- OUTSIDE RECORDS SUMMARY | 2024-10-19 11:51 | XMS_ITS | Encounter Summary ---
Author Organization [employer] Address 75 [facility] 7 [place] [address] Care Team Providers Care Assistant Finance Director Name Role Phone Riley Al MD Primary Care Provider [phone]- [phone] Reason for Visit * Reason Onset Date Comments Call Back Request 06/07/2024 Encounter Details Date Type Department Care Team ([facility] st Contact Info) Description 06/07/2024 Telephone [facility] MEDICINE [address] [place] [address] Riley Al MD [address] [place] [address] Call Back Request Social History Tobacco Use Types Packs/Day [...] encounter Miscellaneous Notes * Telephone Encounter - Chte Sinha - 06/07/2024 9:07 AM EDT Tc from pt requesting a call back from [facility] regarding a Freestyle sensor. Contact pt at [phone] documented in this encounter Plan of Treatment Upcoming Encounters Date Type Department Care Team ([facility] Contact Info) Description 11/15/2024 10:30 AM EDT Telemedicine [facility] MED & PEDS [address] [place] [address] Fabiola Max RN [address] [place] [address] 11/22/2024 9:00 AM EDT Office Visit [facility] MED & PEDS [address] [place] [address] Riley lA MD [address] [place] [address] 12/28/2024 9:30 AM EST Office Visit [facility] OPTOMETRY [address] [place] [address] Sarai Leong, OD [address] [place] [address] documented as of this encounter Visit Diagnoses Not on filedocumented in this encounter Additional Health Concerns Assessment Noted Time PHQ-9 Depression Total Score: 24 024 11:43 AM EST documented as of this encounter Care Teams Assistant Finance Director Relationship Specialty Start Date End Date Riley Al MD [address] [place] [address] PCP - General Internal Medicine 04/03/18 documented as of this encounter
--- OUTSIDE RECORDS SUMMARY | 2024-10-19 11:51 | XMS_ITS | Encounter Summary ---
Author Organization [employer] Address [address] [facility] 7 [place] [address] Care Team Providers Care Warehouse Freight Handler Name Role Phone Riley Al MD Primary Care Provider [phone]- [phone] Reason for Visit * Reason Onset Date Comments Med Refill 01/20/2024 Encounter Details Date Type Department Care Team ([facility] st Contact Info) Description 01/20/2024 Refill [facility] CHC MED & PEDS [address] [place] [address] Riley Al MD [address] [place], [place] [phone] Acute left-sided low back pain with left-sided sciatica; Chronic pain syndrome Social History Tobacco Use [...] Upcoming Encounters Date Type Department Care Team ([facility] st Contact Info) Description 11/15/2024 10:30 AM EDT Telemedicine [facility] MED & PEDS [address] [place] [address] Fabiola Max, JOE [address] [place] [address] 11/22/2024 9:00 AM EDT Office Visit [facility] MED & PEDS [address] [place] [address] Riley Al MD [address] [place] [address] 12/28/2024 9:30 AM EST Office Visit [facility] OPTOMETRY [address] [place] [address] Sarai Leong, OD [address] [place] [address] documented as of this encounter Visit Diagnoses Diagnosis Acute left-sided low back pain with left-sided sciatica Chronic pain syndrome documented in this encounter Additional Health Concerns Assessment Noted Time PHQ-9 Depression Total Score: 9 04/16/19 23 10:03 AM EST documented as of this encounter Care Teams Warehouse Freight Handler Relationship Specialty Start Date End Date Riley Al MD [address] [place] [address] PCP - General Internal Medicine 04/03/18 documented as of this encounter
--- OUTSIDE RECORDS SUMMARY | 2024-10-19 11:51 | XMS_ITS | Encounter Summary ---
Author Organization [employer] Address [address] [facility] 7 [place] [address] Care Team Providers Care Customer Sales Advisor Name Role Phone Riley Al MD Primary Care Provider [phone] Reason for Visit * Reason Onset Date Comments Durable Medical Equipment 03/04/2024 Encounter Details Date Type Department Care Team (Late st Contact Info) Description 03/04/2024 Telephone [facility] MEDICINE [address] [place] [address] Riley Al MD [address] [place] [address] Durable Medical Equipment Social History Tobacco Use Types Packs/Day Years [...] encounter Miscellaneous Notes * Telephone Encounter - Jenifer Fletcher LPN - 03/05/2024 3:10 PM EST Rx for recliner was already generated and faxed to Fax below , please review for Bp machine. * Telephone Encounter - Richard Virgen - 03/04/2024 2:08 PM EST Tc from pt requesting PA for Recliner and BP pump. PT states that recliner is broken and needs a new prescription sent to fax number:[phone] ([facility]) Pt is also requesting wegovy weight management injections for a PA. documented in this encounter Plan of Treatment Upcoming Encounters Date Type Department Care Team ([facility] st Contact Info) Description 11/15/2024 10:30 AM EDT Telemedicine [facility] MED & PEDS [address] [place] [address] Fabiola Max, RN [address] [place] [address] 11/22/2024 9:00 AM EDT Office Visit [facility] CHC MED & PEDS [address] [place], [place] [phone] Riley Al MD [address] [place] [address] 12/28/2024 9:30 AM EST Office Visit [facility] OPTOMETRY [address] [place], [place] [phone] TarkaSarai, OD [address] [place] [address] documented as of this encounter Visit Diagnoses Not on filedocumented in this encounter Additional Health Concerns Assessment Noted Time PHQ-9 Depression Total Score: 24 024 11:43 AM EST documented as of this encounter Care Teams Customer Sales Advisor Relationship Specialty Start Date End Date Riley Al MD [address] [place] [address] PCP - General Internal Medicine 04/03/18 documented as of this encounter
--- OUTSIDE RECORDS SUMMARY | 2024-10-19 11:51 | XMS_ITS | Encounter Summary ---
Author Organization [facility] Address [address] [place] [address] Care Team Providers Care Tobacco Buyer Name Role Phone Kwesi Alves MD Primary Care Provider [phone] Kwesi Alves MD Primary Care Provider Kwesi Alves MD Unavailable [phone] Encounter Details Date Type Department Care Team Description 09/16/2013 Lockstitch Machine Operator Report Medical Records [address] [place] [id number] Social History Tobacco Use Types Packs/Day Years [...] on filedocumented in this encounter Care Teams Tobacco Buyer Relationship Specialty Start Date End Date Kwesi Alves MD [address] [place] [address] PCP - General 04/08/03 11/28/14 Kwesi Alves MD [address] [place] [address] PCP - General 11/29/14 Kwesi Alves MD [address] [place] [address] 11/29/14 documented as of this encounter
--- OUTSIDE RECORDS SUMMARY | 2024-10-19 11:51 | XMS_ITS | Encounter Summary ---
Author Organization [facility] Address [address] [place] [address] Care Team Providers Care Roof Cement And Paint Maker Name Role Phone Kwesi Alves MD Primary Care Provider [phone] Kwesi Alves MD Primary Care Provider Kwesi Alves MD Unavailable [phone] Reason for Visit * Reason Onset Date Comments Blood Pressure Elevated 10/16/2013 FYI Encounter Details Date Type Department Care Team Description 10/16/2013 Telephone Adult Urgent Care - [address] [address] Kwesi Alves, [address] [place] [address] Blood Pressure Elevated (FYI ) Social History Tobacco Use Types Packs/Day Years Used Date Smoking Tobacco: Former Comments:quit over 20 yrs ag o Alcohol Use Standard Drinks/Week Comments Yes 0 (1 standard drink = 0.6 oz pur e alcohol) rare Sex Assigned at Date Recorded Not on file documented as of this encounter Miscellaneous Notes * Telephone Encounter - Adrianne Youssef - 10/16/2013 9:[address] [facility] Nurse called to say that patients blood pressure is 162/110. documented in this encounter Plan of Treatment Not on file documented as of this encounter Visit Diagnoses Not on filedocumented in this encounter Care Teams Roof Cement And Paint Maker Relationship Specialty Start Date End Date Kwesi Alves MD [address] [place] [address] PCP - General 04/08/03 11/28/14 Kwesi Alves MD [address] [place], [place] PCP - General 11/29/14 Kwesi Alves MD [address] [place], [place] 11/29/14 documented as of this encounter
--- OUTSIDE RECORDS SUMMARY | 2024-10-19 11:51 | XMS_ITS | Encounter Summary ---
Author Organization [facility] Address [address] [facility] [address] [place] [address] Phone Care Team Providers Care Swing Driver Name Role Phone Riley Al MD Primary Care Provider Reason for Visit * Reason Comments Med Refill Encounter Details Date Type Department Care Team (Late st Contact Info) Description 10/03/2021 Refill [facility] [address] [place] [place] [phone] Radha Sin PA Social History Tobacco Use [...] Office Visit [facility] [address] [place] [phone] Niels Zambrano MD [address] [place] [address] [place] [phone] documented as of this encounter Visit Diagnoses Not on filedocumented in this encounter Care Teams Swing Driver Relationship Specialty Start Date End Date Riley Al MD PCP - General 12/29/18 documented as of this encounter
--- OUTSIDE RECORDS SUMMARY | 2024-10-19 11:51 | XMS_ITS | Encounter Summary ---
Author Organization [employer] Address [address] [facility] 7 [place] [address] Care Team Providers Care Coater Brake Linings Name Role Phone Riley Al MD Primary Care Provider [phone] Reason for Visit * Reason Onset Date Comments Med Refill 07/13/2024 Encounter Details Date Type Department Care Team ([facility] st Contact Info) Description 07/13/2024 Refill [facility] CHC MED & PEDS [address] [place] [address] Riley Al MD [address] [place], [place] [phone] Acute left-sided low back pain with left-sided [...] [facility] MED & PEDS [address] [place] [address] Fabiola Max RN [address] [place] [address] 11/22/2024 9:00 AM EDT Office Visit [facility] MED & PEDS [address] [place] [address] Riley Al MD [address] [place] [address] 12/28/2024 9:30 AM EST Office Visit [facility] OPTOMETRY [address] [place], [place] [phone] Sarai Leong, OD [address] [place] [address] documented as of this encounter Visit Diagnoses Diagnosis Acute left-sided low back pain with left-sided sciatica Chronic pain syndrome documented in this encounter Additional Health Concerns Assessment Noted Time PHQ-9 Depression Total Score: 24 024 11:43 AM EST documented as of this encounter Care Teams Coater Brake Linings Relationship Specialty Start Date End Date Riley Al MD [address] [place] [address] [place] [address] PCP - General Internal Medicine 04/03/18 documented as of this encounter
--- OUTSIDE RECORDS SUMMARY | 2024-10-19 11:51 | XMS_ITS | Clinical Summary ---
Author Organization [employer] Address [address] [facility] [address] [place] [address] Care Team Providers Care Hand Paster Name Role Phone Riley Al MD Primary Care Provider [phone] Allergies Active Allergy Reactions Criticality Noted Date Comments [place] Oil 05/20/2022 Aspirin Hives 02/13/2023 Food 04/28/2019 Nuts, Oranges, Strawberries Latex Hives 04/28/2019 Lisinopril Cough 04/22/2006 cough cough Naproxen Unknown,Hives 10/29/2013 [place] Oil 05/20/2022 Other 06/04/2022 Penicillin G 05/20/2022 Penicillin G Procaine Wheezing 02/06/2005 Penicillins Hives High 04/03/2018 Other reaction(s): Other (see comments) Salicylates Hives 02/06/2005 Other reaction(s): Hives / Skin Rash, Other (see comments) [place] (Diagnostic) 06/04/2022 [place] Extract 05/20/2022 Zolpidem Other,Hallucination s,Hives 12/14/2012 Zoster Vaccine Recombinant, Adjuvanted 09/04/2021 Other reaction(s): Difficulty breathing, Hives / Skin Rash Medications Nystop 245636 UNIT/GM powder 022 Active dexAMETHasone (Decadron) 4 MG tabletIndication s:Acute left-sided low back pain with left-sided sciatica Take 1 tablet (4 mg) by mouth in the morning for 3 days. 3 tablet 023 Active Nirmatrelvir&Rit onavir 150/100 (Paxlovid, 150/100,) 10 x 150 MG & 10 x 100MG tablet therapy packIndications: COVID-19 Take 1 Dose by mouth in the morning and at bedtime. GFR: 59 ml/min. Please deliver to the curbside. 30 each 024 Active Misc. Devices (Pulse Oximeter For Finger) miscIndications: COVID-19 To use every 4 hours. Call the office if O2Sat < 90% 1 each 024 Active tiZANidine (Zanaflex) 4 MG tablet Take 1 tablet (4 mg) by mouth every 6 (six) hours if needed for muscle spasms for up to 10 days. 30 tablet 024 Active meclizine (Antivert) 25 MG tabletIndication s:Dizziness TAKE ONE TABLET BY MOUTH THREE TIMES A DAY NEEDED FOR DIZZINESS (MORNING, NOON, AND BEDTIME) (VIAL) 30 tablet 024 Active furosemide (Lasix) 20 MG tablet TAKE 1 TABLET BY MOUTH EVERY MORNING 30 tablet 5 024 Active triamcinolone (Kenalog) 0.1 % ointment Apply topically 2 times daily. 30 g 024 Active traZODone (Desyrel) 100 MG tabletIndication s:Primary insomnia TAKE 1 TABLET BY MOUTH AT BEDTIME^1R4 30 tablet 11 024 Active rosuvastatin (Crestor) 20 MG tabletIndication s:Hypercholester olemia TAKE 1 TABLET BY MOUTH AT BEDTIME^1R4 30 tablet 11 024 Active levothyroxine (Synthroid, Levoxyl) 112 MCG tabletIndication s:Acquired hypothyroidism TAKE 1 TABLET BY MOUTH ONCE A DAY ^1R1 30 tablet 11 024 Active capsaicin (Zostrix) 0.025 % creamIndications :Idiopathic osteoarthritis Apply topically 2 times daily. 56.6 g 3 024 2024 Active Blood Pressure kitIndications:E ssential hypertension To check the BP 2 times a week. 1 kit 025 Active Tirzepatide-Weig ht Management (Zepbound) 5 MG/0.5ML solutionIndicati ons:Morbid obesity (CMS/HCC) Inject 5 mg under the skin every 7 (seven) days. 2 mL 1 025 Active spironolactone (Aldactone) 25 MG tablet TAKE 1 TABLET BY MOUTH EVERY MORNING 30 tablet 5 025 Active magnesium oxide (Mag-Ox) 250 MG tabletIndication s:Hypomagnesemia TAKE 1 TABLET BY MOUTH ONCE A DAY 30 tablet 5 025 Active esomeprazole (NexIUM) [address] capsuleIndicatio ns:Other chronic gastritis without hemorrhage TAKE 1 CAPSULE BY MOUTH EVERY MORNING^1R1 30 capsule 5 025 Active Tirzepatide-Weig ht Management (Zepbound) 10 MG/0.5ML solution auto-injector Inject 0.5 mL (10 mg) under the skin every 7 (seven) days. INJECT ONE PEN (=10 MG) SUBCUTANEOUSLY ONCE A WEEK 2 mL 1 025 Active lidocaine (Xylocaine) 5 % ointmentIndicati ons:Chronic pain syndrome Apply topically if needed for mild pain. 240 g 3 025 2025 Active pantoprazole (ProtoNix) 40 MG EC tablet TAKE 1 TABLET BY MOUTH EVERY DAY BEFORE BREAKFAST 30 tablet 5 025 Active cholecalciferol (Vitamin D-3) 25 MCG (1000 UT) capsuleIndicatio ns:Vitamin D deficiency TAKE 1 CAPSULE BY MOUTH ONCE A DAY^1R1 30 capsule 025 Active diphenhydrAMINE (Banophen) 25 MG tabletIndication s:Primary insomnia TAKE 2 TABLETS BY MOUTH AT BEDTIME FOR INSOMNIA^2R4 60 tablet 5 025 Active famotidine (Pepcid) 20 MG tabletIndication s:Other chronic gastritis without hemorrhage TAKE 1 TABLET BY MOUTH TWICE A DAY 60 tablet 025 Active losartan (Cozaar) 50 MG tabletIndication s:Essential hypertension Take 1 tablet (50 mg) by mouth Once per day. 30 tablet 025 2025 Active Tirzepatide-Weig ht Management (Zepbound) 10 MG/0.5ML solution auto-injectorInd ications:Morbid obesity (CMS/HCC) Inject 0.5 mL (10 mg) under the skin 1 (one) time per week. 2 mL 2 025 Active acetaminophen (Arthritis Pain Relief) 650 MG ER tabletIndication s:Idiopathic osteoarthritis TAKE ONE TABLET EVERY 8 HOURS NEEDED FOR MILD PAIN 30 tablet 1 025 Active naloxone (Narcan) 4 mg/0.1 mL nasal spray Administer 1 spray (4 mg) into affected nostril(s) if needed for opioid reversal. May repeat every 2-3 minutes if needed, alternating nostrils, until medical assistance becomes available. 2 each 2 025 2025 Active lidocaine-priloc chase (Emla) 2.5-2.5 % creamIndications :Idiopathic osteoarthritis Apply topically 2 times daily. 30 g 2 Active acetaminophen-co deine (Tylenol w/ Codeine #3) 300-30 MG tabletIndication s:Acute left-sided low back pain with left-sided sciatica,Chronic pain syndrome Take 1 tablet by mouth every 12 (twelve) hours if needed for severe pain for up to 28 days. 56 tablet 025 2024 Active metaxalone (Skelaxin) 800 MG tabletIndication s:Acute left-sided low back pain with left-sided sciatica,Chronic pain syndrome,Acute left-sided low back pain with left-sided sciatica TAKE 1 TABLET BY MOUTH THREE TIMES A DAY 60 tablet 1 025 Active acetaminophen-co deine (Tylenol w/ Codeine #3) 300-30 MG tabletIndication s:Acute left-sided low back pain with left-sided sciatica,Chronic pain syndrome Take 1 tablet by mouth every 12 (twelve) hours if needed for severe pain for up to 28 days. Do not start before August 25, 2024. 56 tablet 025 2024 Discontinued(R eorder (will not trigger notification to Pharmacy)) metaxalone (Skelaxin) 800 MG tabletIndication s:Acute left-sided low back pain with left-sided sciatica,Chronic pain syndrome,Acute left-sided low back pain with left-sided sciatica TAKE 1 TABLET BY MOUTH THREE TIMES A DAY 60 tablet 025 2024 Discontinued(R eorder (will not trigger notification to Pharmacy)) Active Problems Problem Noted Date Diagnosed Date Long-term current use of opiate analgesic 2024 Chronic pain 02/28/2022 Gastritis 02/28/2022 Essential hypertension 02/28/2022 Hypothyroidism 02/28/2022 Idiopathic osteoarthritis 02/28/2022 Morbid obesity 02/28/2022 Recurrent falls 02/28/2022 Dizziness 02/28/2022 Assessment & Plan (02/28/2022 5:27 PM EST): Triggered episodic dizziness with changes in position. Negative orthostatic vitals, given body habitus of patient and chronic poor mobility it would be difficult to preform [place] jami Reynoso, will hold off sending head imaging but if these become continuous and not improved, will need to consider sending. HINTs test negative but this is validate for continous not intermittent. Will send labs and also EKG with some abnormalities sent to cards. Abnormal EKG 02/28/2022 Assessment & Plan (02/28/2022 5:28 PM EST): Some abnormal findings of early repolarization, large T waves, widen QRS, will benefit of cards evaluation Stage 3a chronic kidney disease 03/23/2019 Overview (02/28/2022): Update for Diagnosis Load Hypercholesterolemia 04/06/2018 Microcytic anemia 04/06/2018 Encounters Date Type Department Care Team Description 10/06/2024 Refill [facility] [address] [place] [address] Riley Al MD Acute left-sided low back pain with left-sided sciatica; Chronic pain syndrome; Acute left-sided low back pain with left-sided sciatica 09/24/2024 Refill [facility] [address] [place], [place] [id number] Riley Al MD Acute left-sided low back pain with left-sided sciatica; Chronic pain syndrome 09/13/2024 Refill [facility] [address] [place] [address] Andrés Ghotra MD Acute left-sided low back pain with left-sided sciatica; Chronic pain syndrome; Acute left-sided low back pain with left-sided sciatica 09/08/2024 Telephone [facility] [address] [place] [address] Riley Al MD Med Refill 09/06/2024 2:30 PM EDT Telemedicine [facility] [address] [place] [address] 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, 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 09/06/2024 Refill [facility] [address] [place] [address] Fabiola Max RN Idiopathic osteoarthritis 09/06/2024 Travel 08/30/2024 Refill [facility] [address] [place] [address] Riley Al MD Idiopathic osteoarthritis; Acute left-sided low back pain with left-sided sciatica; Chronic pain syndrome; Acute left-sided low back pain with left-sided sciatica 08/19/2024 9:45 AM EDT Office Visit [facility] [address] [place] [address] Riley Al MD Essential hypertension (Primary Dx); History of fall; Morbid obesity (CMS/HCC) 08/19/2024 Refill [facility] [address] [place] [address] 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, 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-sided low back pain with left-sided sciatica; Chronic pain syndrome 08/19/2024 Travel 08/18/2024 Telephone [facility] [address] [place] [address] Riley Al MD chart prep 08/16/2024 Refill [facility] [address] [place] [address] Riley Al MD Other chronic gastritis without hemorrhage 08/13/2024 Telephone [facility] [address] [place] [address] Riley Al MD Nurse Triage 07/30/2024 Refill [facility] [address] [place] [address] Riley Al MD Primary insomnia 07/26/2024 Telephone [facility] [address] [place] [address] Riley Al MD Prior Authorization 07/23/2024 Orders Only [facility] [address] [place] [address] Riley Al MD Acute left-sided low back pain with left-sided sciatica; Chronic pain syndrome; Acute left-sided low back pain with left-sided sciatica 07/23/2024 Telephone [facility] [address] [place] [address] Riley Al MD Medication Question from Last 3 Months Immunizations Immunization Administration Dates Next Due PPD Test 11/02/2014 Zoster, Recombinant 07/02/2021 Social History Tobacco Use Types Packs/Day Years [...] is your housing situation today? I have karolinayoel lopez 02/19/[address] you [...] Orientation Straight 12/24/2021 10 :35 AM EDT Last Filed Vital Signs Vital Sign Reading Time Taken Comments Blood Pressure 111/67 08/19/2024 9:41 AM EDT Pulse 99 08/19/2024 9:41 AM EDT Temperature 36.8 C (98.3 F) 08/19/2024 9:41 AM EDT Respiratory Rate 20 08/19/2024 9:41 AM EDT Oxygen Saturation 96% 08/19/2024 9:41 AM EDT Inhaled Oxygen Concentration - - Weight 109 kg (241 lb) 08/19/2024 9:41 AM EDT Height 160 cm (5' 3 ) 08/19/2024 9:41 AM EDT Body Mass Index 42.69 08/19/2024 9:41 AM EDT Plan of Treatment Upcoming Encounters Date Type Department Care Team (Late st Contact Info) Description 11/15/2024 10:30 AM EDT Telemedicine [facility] [address] [place] [address] Fabiola Max RN [address] [place] [address] 11/22/2024 9:00 AM EDT Office Visit [facility] [address] [place] [address] Riley Al MD [address] [place] [address] 12/28/2024 9:30 AM EST Office Visit [facility] [address] [place] [address] Sarai Leong, OD [address] [place] [address] Health Maintenance Due Date Last Done Comments CT Colonography 1960 Colonoscopy 1962 FIT 1960 FOBT 1962 HIV Screening 1960 Sigmoidoscopy 1960 Disability Screening 1960 DTaP/Tdap/Td Vaccines (1 - Tdap) 1981 Pneumococcal Vaccine: 50+ Years (1 of 1 - PCV) 02/15/2012 Zoster Vaccines (2 of 2) 08/27/2021 07/02/2021 RSV Patients and Patients Aged 60 years or older (1 - Risk 60-74 years 1-dose series) 2022 COVID-19 Vaccine ( - season) 2023 04/30/2021, 07/07/2020, 05/31/2020 Pap Smear 03/22/2024 03/22/2021 Depression Monitoring 08/19/2024 02/19/2024, 024 Influenza Vaccine (#1) 2024 Alcohol/Substance Use Screening 02/18/2025 02/19/2024 SDOH Screening 02/18/2025 02/19/2024 Tobacco Screening 08/19/2025 08/19/2024 Mammogram 10/09/2025 10/10/2023, 06/24, 07/03/2021, Additional history exists Colorectal Cancer Screening 01/01/2026 FIT DNA/Cologuard 01/01/2026 01/01/2023 Cervical Cancer Screening 03/22/2026 HPV/Cotest 03/22/2026 03/22/2021 Lipid Panel 05/19/2029 05/19/2024, 08/21/2021 Hepatitis C Screening Completed 08/21/2021 HIB Vaccines Aged Out No longer eligi [...] patient's age to complete this topic Meningococcal Vaccine Aged Out No steven karoline eligible based on patient's age to complete this topic RSV under 20 months Aged Out No longe r eligible based on patient's age to complete this topic Rotavirus Vaccines Aged Out No longer eligible based on patient's age to complete this topic Procedures Procedure Name Priority Date/Time Associated Diagnosis Comments LIPID PANEL, STANDARD Routine 05/19/2024 2:54 PM EDT Essential hypertension Hypercholesterolemia Acquired hypothyroidism BI MAMMOGRAM SCREENING TOMOSYNTHESIS BILATERAL Routine 10/10/2023 10:30 AM EDT LAB COLOGUARD COLON CANCER SCREEN Routine 01/01/2023 9:15 AM EST Screening for colon cancer ZZZ HISTORICAL HEPATITIS C AB W/REFL TO HCV RNA, QN, PCR Routine 08/21/2021 9:58 AM EDT THINPREP IMAGING PAP AND HPV MRNA E6/E7 WITH REFLEX TO HPV 16,18/45 Routine 03/22/2021 2:08 PM EST from Last 3 Months or Most Recently Relevant to Health Maintenance Results * Lipid Panel, Standard (05/19/2024 2:54 PM EDT) Triglycerides 113 <150 mg/dL [facility] Comment:Desirable Triglyceri de: less than 150 mg/dLBorderline High Triglyceride 150-199 mg/dLHigh Triglyceride: 200-499 mg/dLVery High Triglyceride: greater than or equal to 5OO mg/dL Cholesterol 147 <200 mg/dL [facility] Comment:Desirable Cholestero l: less than 200 mg/dLBorderline High Cholesterol: 200-239 mg/dLHigh Cholesterol: greater than 239 mg/dL LDL Cholesterol Calculated 56 <100 mg/dL [facility] Comment:Desirable LDL: less than 100 mg/dLNear Optimal/Above Optimal LDL: 110- 129 mg/dLBorderline High LDL: 130-159 mg/dLHigh LDL: 160-189 mg/dLVery High LDL: greater than or equal to 190 mg/dL HDL Cholesterol 69 >40 mg/dL [facility] Comment:Desirable HDL: grea ter than 40 mg/dL Note: This HDL assay may give artificially low results in patients with liver disease. Blood Venous blood specimen / Unknown 05/19/2024 2:54 PM EDT 05/19/2024 6:24 PM EDT Riley Al MD LAB BLOOD ORDERABLES Final Result [facility] [address] [place] [address] [phone] * BI Mammogram Screening Tomosynthesis Bilateral (10/10/2023 10:30 AM EDT) Anatomical Region Laterality Modality Breast Bilateral Mammography 10/10/2023 10:3 0 AM EDT Narrative 11/08/2023 3:34 PM EDT [address] [place] [address] Mammography Report Signed Patient: Hilda Reyes MR#: [id number] : 1960 Acct:[id number] Age/Sex: 63 / F ADM Date: 10/10/23 Loc: HO.MAMMO Attending Dr: Riley Al MD Ordering Physician: Riley Al MD Results: 1 Negative Date of Service: 10/10/23 Follow Up: 1 Year From [facility] ina Mammogram Procedure(s): MM tomosynthesis screening BI Accession Number(s): [id number] cc: Riley Al MD EXAMINATION: MM SCREENING DIGITAL BREAST TOMOSYNTHESIS, BILATERAL CLINICAL INFORMATION: Screening. Asymptomatic. COMPARISON: Mammography: This study is compared with prior exams dating back to 2020. TECHNIQUE: Digital breast tomosynthesis is performed in both the craniocaudal and mediolateral oblique views along with computer-aided detection (CAD). Synthesized 2D images are generated from the tomosynthesis. FINDINGS: The breasts are almost entirely fatty (ACR BI-RADS breast composition Category a). There are no significant masses, abnormal calcifications, or other abnormalities. MM/MM tomosynthesis screening BI IMPRESSION: No mammographic evidence of malignancy. ASSESSMENT: BI-RADS BI-RADS 1 - Negative RECOMMENDATION: Routine annual mammography screening. 1 year F/U This examination should not preclude the clinical evaluation of a suspicious palpable abnormality. This patient's information was entered into a reminder system with a target due date for their next mammogram. Electronically signed by: Minal Kelley MD 11/08/2023 03:31 PM EDT Dictated By: Minal Kelley MD Signed By: <Electronically signed by Minal Kelley MD in OV> 11/08/23 1531 DD/ 1030 TD/TT: 10/10/23 1040 Industrial Technology Teacher: Procedure Note Donotuseinterpreter, Image - 11/08/2023 [facility] [address] [place] [address] Mammography Report Signed Patient: Chris Reyes#: [id number] : 2Acct:[id number] Age/Sex: 63 / FADM Date: 10/10/23 Loc: HO.MAMMO Attending Dr: Riley Al MD Ordering Physician: Riley Al MDResults: 1 Negative Date of Service: 10/10/23Follow Up: 1 Year From [facility] Mammogram Procedure(s): MM tomosynthesis screening BI Accession Number(s): [id number] cc: Riley Al MD EXAMINATION: MM SCREENING DIGITAL BREAST TOMOSYNTHESIS, BILATERAL CLINICAL INFORMATION: Screening. Asymptomatic. COMPARISON: Mammography: This study is compared with prior exams dating back to 2020. TECHNIQUE: Digital breast tomosynthesis is performed in both the craniocaudal and mediolateral oblique views along with computer-aided detection (CAD). Synthesized 2D images are generated from the tomosynthesis. FINDINGS: The breasts are almost entirely fatty (ACR BI-RADS breast composition Category a). There are no significant masses, abnormal calcifications, or other abnormalities. MM/MM tomosynthesis screening BI IMPRESSION: No mammographic evidence of malignancy. ASSESSMENT: BI-RADS BI-RADS 1 - Negative RECOMMENDATION: Routine annual mammography screening. 1 year F/U This examination should not preclude the clinical evaluation of a suspicious palpable abnormality. This patient's information was entered into a reminder system with a target due date for their next mammogram. Electronically signed by: Minal Kelley MD 11/08/2023 03:31 PM EDT RP Dictated By: Minal Kelley MD Signed By: <Electronically signed by Minal Kelley MD in OV> 11/08/23 1531 DD/ 1030 TD/TT: 10/10/23 1040 Industrial Technology Teacher: us Riley Al MD IM BI PROCEDURES Edited Re sult - Final * (ABNORMAL) Cologuard?? colon cancer screening (01/01/2023 9:15 AM EST) Cologuard Result Positive( A) Negative 01/10/2023 10:18 AM EST [email or web address] (CLIA #:[id number]) Comment: POSITIVE TEST RESULT. A positive Cologuard result should be followed with a colonoscopy or visual examination of the colon. The normal value (reference range) for this assay is negative. TEST DESCRIPTION: Composite algorithmic analysis of stool DNA-biomarkers with hemoglobin immunoassay. Quantitative values of individual biomarkers are not reportable and are not associated with individual biomarker result reference ranges. Cologuard is intended for colorectal cancer screening of adults of either sex, 45 years or older, who are at average-risk for colorectal cancer (CRC). Cologuard has been approved for use by the U.S. FDA. The performance of Cologuard was established in a cross sectional study of average-risk adults aged 50-84. Cologuard performance in patients ages 45 to 49 years was estimated by sub-group analysis of near-age groups. Colonoscopies performed for a positive result may find as the most clinically significant lesion: colorectal cancer [4.0%], advanced adenoma (including sessile serrated polyps greater than or equal to 1cm diameter) [20%] or non- advanced adenoma [31%]; or no colorectal neoplasia [45%]. These estimates are derived from a prospective cross-sectional screening study of 10,000 individuals at average risk for colorectal cancer who were screened with both Cologuard and colonoscopy. (Asya Fisher al, N Engl J Med 2014;370(14):8014-0275.) Cologuard may produce a false negative or false positive result (no colorectal cancer or precancerous polyp present at colonoscopy follow up). A negative Cologuard test result does not guarantee the absence of CRC or advanced adenoma (pre-cancer). The current Cologuard screening interval is every 3 years. ([place] Cancer Society and U.S. Multi-Society Task Force). Cologuard performance data in a 10,000 patient pivotal study using colonoscopy as the reference method can be accessed at the following location: www.Depositphotos/results. Additional description of the Cologuard test process, warnings and precautions can be found at [email or web address]. Stool specimen (specimen) 01/01/2023 9:15 AM EST 01/03/2023 2:28 PM EST us Riley Al MD LAB MOLECULAR DIAGNOSTICS O RDERABLES Final Result [email or web address] (CLIA #:[id number]) [address] [place] [address], * HEPATITIS C AB W/REFL TO HCV RNA, QN, PCR (08/21/2021 9:58 AM EDT) HEPATITIS C ANTIBODY NON-REACT GREGG NON-REACT GREGG [facility] INDEX 0.08 <1.00 [facility] Comment: HCV antibody was non-reactive. There is no laboratory evidence of HCV infection. In most cases, no further action is required. However, if recent HCV exposure is suspected, a test for HCV RNA (test code 58683) is suggested. For additional information please refer to http://education.[email or web address].[email or web address]/faq/UQV99c1 (This link is being provided for informational/ educational purposes only.) 08/21/2021 9:58 AM EDT us Riley Al MD HISTORICAL/NON ORDERABLE MABEL FOFANA Final Result [facility] [address] [place] [address], * THINPREP TIS PAP AND HPV mRNA E6/E7 WITH REFLEX TO HPV 16,18/45 (03/22/2021 2:08 PM EST) Clinical Information: None given [facility] COMMENT SEE COMMENT [facility] Comment: EXPLANATORY NOTE: The Pap is a screening test for cervical cancer. It is not a diagnostic test and is subject to false negative and false positive results. It is most reliable when a satisfactory sample, regularly obtained, is submitted with relevant clinical findings and history, and when the Pap result is evaluated along with historic and current clinical information. COMMENT: This Pap test has been evaluated with computer assisted technology. [facility] Route Jumper: SEE COMMENT [facility] Comment: ALS, CT(ASCP) CT screening location: [place] [address] HPV nRNA E6/E7 Not Detected Not Detected [facility] Comment: Methodology: Small Package And Bundle Sorter Clerk-Mediated Amplification This assay detects E6/E7 viral messenger RNA (mRNA) from 14 high-risk HPV types (16,18,31,33,35,39,45,51,52,56,58,59,66,68). The analytical performance characteristics of this assay have been determined by [employer]. The modifications have not been cleared or approved by the FDA. This assay has been validated pursuant to the CLIA regulations and is used for clinical purposes. For additional information, please refer to http://[email or web address]/faq/TYR159p4 (This link if provided for information/ educational purposes only.) Interpretation/Re sult: Negative for intraepithelial lesion or malignancy. [facility] LMP: NONE [facility]IVEN [facility] Prev. BX: NONE [facility]IVEN [facility] Prev. PAP: NONE [facility]IVEN [facility] SOURCE: None given [facility] Statement Of Adequacy: SEE COMMENT [facility] Comment: Satisfactory for evaluation. Endocervical/transformation zone component absent. Age and/or menstrual status not provided 03/22/2021 2:08 PM EST us Mirela Flanagan MD LAB PATHOLOGY ORDERABLES Aracelis napier Result [facility] [address] from Last 3 Months or Most Recently Relevant to Health Maintenance [place] [address] [place] [address] STANDARD [facility] < 65 Care Teams Hand Paster Relationship Specialty Start Date End Date Riley Al MD [address] [place] [id number] PCP - General Internal Medicine 04/03/18
--- OUTSIDE RECORDS SUMMARY | 2024-10-19 11:52 | XMS_ITS | Encounter Summary ---
Author Organization [facility] Address [address] [place] [address] Care Team Providers Care Torpedo Shooter Name Role Phone Kwesi Alves MD Primary Care Provider [phone] Kwesi Alves MD Unavailable [phone] Reason for Visit * Reason Onset Date Comments Information Needed 03/06/2015 triage Encounter Details Date Type Department Care Team Description 03/06/2015 Telephone OBGYN - Kim [address] [place] [address] Lambert Dorado, [facility] [address] [place] [address] Information Needed (triage) Social History Tobacco Use Types Packs/Day Years Used Date Smoking Tobacco: Former Smokeless Tobacco: Never Comments:quit over 20 yrs ag o Alcohol Use Standard Drinks/Week Comments Yes 0 (1 standard drink = 0.6 oz pur e alcohol) rare Sex Assigned at Date Recorded Not on file documented as of this encounter Miscellaneous Notes * Telephone Encounter - Mayela Ortega R.N. - 03/06/2015 8:49 AM EST Yes, she can see Lambert. * Telephone Encounter - Joy Ybarra - 03/06/2015 8:39 AM EST Pt is here now for appt w pcp She wants to make appt for ag Pt asking if she can see lambert Has had hyst and is 55 yo documented in this encounter Plan of Treatment Not on file documented as of this encounter Visit Diagnoses Not on filedocumented in this encounter Care Teams Torpedo Shooter Relationship Specialty Start Date End Date Kwesi Alves MD [address] [place] [address] PCP - General 11/29/14 Kwesi Alves MD [address] [place] [address] 11/29/14 documented as of this encounter
--- OUTSIDE RECORDS SUMMARY | 2024-10-19 11:52 | XMS_ITS | Encounter Summary ---
Author Organization [employer] Address [address] [place] [address] Care Team Providers Care Speech And Drama Teacher Name Role Phone Riley Al MD Primary Care Provider [phone] Encounter Details Date Type Department Care Team ([facility] st Contact Info) Description 06/12/2022 Orders Only [facility] MED & PEDS [address] [place], [place] [phone] Riley Al MD [address] [place] [address] Stage 3a chronic kidney disease (CMS/HCC) (Primary Dx) Social History Tobacco Use Types Packs/Day Years Used Date Smoking Tobacco: Never Passive Smoke Exposure: Never Smokeless Tobacco: Never Alcohol Use Standard Drinks/Week Comments Never 0 (1 standard drink = 0.6 oz pur e alcohol) Depression Answer Date Recorded Patient Health Questionnaire-9 Score 9 04/16/2022 Depression Answer Date Recorded Patient Health Questionnaire-2 [...] suspected to have Coronavirus/COVID-19? No / Unsure 06/14/2022 3:16 PM EDT documented as of this encounter Plan of Treatment Upcoming Encounters Date Type Department Care Team (Late st Contact Info) Description 11/15/2024 10:30 AM EDT Telemedicine [facility] MED & PEDS [address] [place] [address] Fabiola Max, RN [address] [place] [address] 11/22/2024 9:00 AM EDT Office Visit [facility] MED & PEDS [address] [place] [address] Riley Al MD [address] [place] [address] 12/28/2024 9:30 AM EST Office Visit [facility] OPTOMETRY [address] [place] [address] TarSarai bishop, OD [address] [place] [address] Scheduled Orders Name Type Priority Associated Diagnoses Orde r Schedule Basic Metabolic Panel Lab Routine Stage 3a chronic kidney disease (CMS/HCC) Expected: 06/12/2022 (Approximate), Expires: 06/13/2023 documented as of this encounter Procedures Procedure Name Priority Date/Time Associated Diagnosis Comments BI MAMMOGRAM SCREENING TOMOSYNTHESIS BILATERAL Routine 07/08/2022 9:45 AM EDT documented in this encounter Results * BI Mammogram Screening Tomosynthesis Bilateral (07/08/2022 9:45 AM EDT) Anatomical Region Laterality Modality Breast Bilateral Mammography 07/08/2022 9:45 AM EDT Narrative 07/09/2022 12:41 PM EDT [facility] [address] [place] [address] Mammography Report Signed Patient: Hilda Reyes MR#: [id number] : 1960 Acct:[id number] Age/Sex: 62 / F ADM Date: 07/08/22 Loc: HO.MAMMO Attending Dr: Riley Al MD Ordering Physician: Riley Al MD Results: 1 Negative Date of Service: 07/08/22 Follow Up: 1 Year From Orig inal Mammogram Procedure(s): MM tomosynthesis screening BI Accession Number(s): [id number] cc: Riley Al MD EXAMINATION: MM SCREENING DIGITAL BREAST TOMOSYNTHESIS, BILATERAL CLINICAL INFORMATION: Screening. Asymptomatic. The lifetime risk of breast cancer based on the Tyrer-Cuzick Model is 5%. COMPARISON: Mammography: 07/03/2021, 06/22/2020, 02/15/2019 TECHNIQUE: Digital breast tomosynthesis is performed in both the craniocaudal and mediolateral oblique views along with computer-aided detection (CAD). Synthesized 2D images are generated from the tomosynthesis. Additional bilateral CC and additional bilateral MLO views are provided. FINDINGS: There are scattered areas of fibroglandular density (ACR BI-RADS breast composition Category b). Breast tissue composition borders on predominantly fatty. Background stromal and minor fibroglandular densities are stable. There is no developing density or architectural abnormality. No abnormal calcifications. There are no significant masses, abnormal calcifications, or other abnormalities. The axilla and skin contours are unremarkable. MM/MM tomosynthesis screening BI IMPRESSION: No mammographic evidence of malignancy. ASSESSMENT: BI-RADS 1: Negative RECOMMENDATION: Routine annual mammography screening. This patient's information was entered into a reminder system with a target due date for their next mammogram. Dictated By: Wicho Rosales MD Signed By: <Electronically signed by Wicho Rosales MD in OV> 07/09/22 1238 DD/ 0945 TD/TT: Size Changer: LAWRENCE Procedure Note Donotuseinterpreter, Image - 08/22/2022 Zi [facility]'s [address] [place] [address] Mammography Report Signed Patient: Chris Reyes#: [id number] : 2Acct:[id number] Age/Sex: 62 / FADM Date: 07/08/22 Loc: HO.MAMMO Attending Dr: Riley Al MD Ordering Physician: Riley Al MDResults: 1 Negative Date of Service: 07/08/22Follow Up: 1 Year From Orig ina Mammogram Procedure(s): MM tomosynthesis screening BI Accession Number(s): [id number] cc: Riley Al MD EXAMINATION: MM SCREENING DIGITAL BREAST TOMOSYNTHESIS, BILATERAL CLINICAL INFORMATION: Screening. Asymptomatic. The lifetime risk of breast cancer based on the Tyrer-Cuzick Model is 5%. COMPARISON: Mammography: 07/03/2021, 06/22/2020, 02/15/2019 TECHNIQUE: Digital breast tomosynthesis is performed in both the craniocaudal and mediolateral oblique views along with computer-aided detection (CAD). Synthesized 2D images are generated from the tomosynthesis. Additional bilateral CC and additional bilateral MLO views are provided. FINDINGS: There are scattered areas of fibroglandular density (ACR BI-RADS breast composition Category b). Breast tissue composition borders on predominantly fatty. Background stromal and minor fibroglandular densities are stable. There is no developing density or architectural abnormality. No abnormal calcifications. There are no significant masses, abnormal calcifications, or other abnormalities. The axilla and skin contours are unremarkable. MM/MM tomosynthesis screening BI IMPRESSION: No mammographic evidence of malignancy. ASSESSMENT: BI-RADS 1: Negative RECOMMENDATION: Routine annual mammography screening. This patient's information was entered into a reminder system with a target due date for their next mammogram. Dictated By: Wicho Rosales MD Signed By: <Electronically signed by Wicho Rosales MD in OV> 07/09/22 1238 DD/ 0945 TD/TT: Size Changer: LAWRENCE [facility] External Provider IMG BI PROCEDURES Final Result documented in this encounter Visit Diagnoses Diagnosis Stage 3a chronic kidney disease (CMS/HCC)- Primary documented in this encounter Additional Health Concerns Assessment Noted Time PHQ-9 Depression Total Score: 9 04/16/19 23 10:03 AM EST documented as of this encounter Care Teams Speech And Drama Teacher Relationship Specialty Start Date End Date Riley Al MD [address] [place] [address] [place] [address] PCP - General Internal Medicine 04/03/18 documented as of this encounter
--- OUTSIDE RECORDS SUMMARY | 2024-10-19 11:52 | XMS_ITS | Encounter Summary ---
Author Organization [facility] Address [address] [facility] [address] [place] [address] Phone Care Team Providers Care Employment And Claims Aide Name Role Phone Riley Al MD Primary Care Provider Encounter Details Date Type Department Care Team (Late st Contact Info) Description 12/18/2022 Documentation Only [facility] [address] [place] [address] Niels Zambrano MD [address] [place] [address] [place] [address] Social History Tobacco Use Types [...] Visit [facility] [address] [place] [address] Niels Zambrano MD [address] [place] [address] [place] [address] documented as of this encounter Visit Diagnoses Not on filedocumented in this encounter Care Teams Employment And Claims Aide Relationship Specialty Start Date End Date Riley Al MD PCP - General 12/29/18 documented as of this encounter
--- OUTSIDE RECORDS SUMMARY | 2024-10-19 11:52 | XMS_ITS | Encounter Summary ---
Author Organization [facility] Address [address] [place] [address] Care Team Providers Care Tenter Name Role Phone Kwesi Alves MD Primary Care Provider [phone] Kewsi Alves MD Unavailable [phone] Encounter Details Date Type Department Care Team Description 04/19/2015 Release of Information Medical Records [address] [place] [id number] Abstract, Provider Social History Tobacco Use Types Packs/Day Years [...] on filedocumented in this encounter Care Teams Tenter Relationship Specialty Start Date End Date Kwesi Alves MD [address] [place] [address] PCP - General 11/29/14 Kwesi Alves MD [address] [place] [address] 11/29/14 documented as of this encounter
--- OUTSIDE RECORDS SUMMARY | 2024-10-19 11:52 | XMS_ITS | Encounter Summary ---
Author Organization [employer] Address [address] 7[address] [place] [address] Care Team Providers Care Grain Handler Name Role Phone Riley Al MD Primary Care Provider [phone] Encounter Details Date Type Department Care Team ([facility] st Contact Info) Description 09/04/2022 Orders Only [facility] MED & PEDS [address] [place], [place] [phone] Riley Al MD [address] [place] [address] SOB (shortness of breath) (Primary Dx) Social History Tobacco Use Types [...] suspected to have Coronavirus/COVID-19? No / Unsure 08/15/2022 9:02 AM EDT documented as of this encounter Plan of Treatment Upcoming Encounters Date Type Department Care Team (Late st Contact Info) Description 11/15/2024 10:30 AM EDT Telemedicine [facility] MED & PEDS [address] [place] [address] Fabiola Max, RN [address] [place] [address] 11/22/2024 9:00 AM EDT Office Visit [facility] MED & PEDS [address] [place] [address] Riley Al MD [address] [place] [address] 12/28/2024 9:30 AM EST Office Visit [facility] OPTOMETRY [address] [place] [address] TarSarai bishop, OD [address] [place] [address] documented as of this encounter Visit Diagnoses Diagnosis SOB (shortness of breath)- Primary Shortness of breath documented in this encounter Additional Health Concerns Assessment Noted Time PHQ-9 Depression Total Score: 9 04/16/19 23 10:03 AM EST documented as of this encounter Care Teams Grain Handler Relationship Specialty Start Date End Date Riley Al MD [address] [place] [address] PCP - General Internal Medicine 04/03/18 documented as of this encounter
--- OUTSIDE RECORDS SUMMARY | 2024-10-19 11:52 | XMS_ITS | Encounter Summary ---
Author Organization [facility] Address [address] [place] [address] Care Team Providers Care Traffic I Manager Name Role Phone Kwesi Alves MD Primary Care Provider [phone] Kwesi Alves MD Unavailable [phone] Encounter Details Date Type Department Care Team Description 05/10/2015 Pt. Non Urgent Medic al Question Adult Medicine - [place] [address] [place] [address] Kwesi Alves MD [address] [place] [address] Social History Tobacco Use Types Packs/Day Years Used Date Smoking Tobacco: Former Smokeless Tobacco: Never Comments:quit over 20 yrs ag o Alcohol Use Standard Drinks/Week Comments Yes 0 (1 standard drink = 0.6 oz pur e alcohol) rare Sex Assigned at Date Recorded Not on file documented as of this encounter Progress Notes * Tyesha Ramirez M.A. - 05/11/2015 8:53 AM EDTFrom: Hilda Reyes To: Kwesi Alves MD Sent: 05/10/2015 8:23 PM EDT Subject: Up coming appointment May 29 at 11:00 so perhaps we can speak then but I will not take any ibuprofen thank you so much documented in this encounter Plan of Treatment Not on file documented as of this encounter Visit Diagnoses Not on filedocumented in this encounter Care Teams Traffic I Manager Relationship Specialty Start Date End Date Kwesi Alves MD [address] [place] [address] PCP - General 11/29/14 Kwesi Alves MD [address] [place] [address] 11/29/14 documented as of this encounter
--- OUTSIDE RECORDS SUMMARY | 2024-10-19 11:52 | XMS_ITS | Clinical Summary ---
Author Organization [facility] Address [address] [place] [address] [place] [address] Phone Care Team Providers Care Logistics Research Engineer Name Role Phone Riley Al MD Primary Care Provider Allergies Active Allergy Reactions Criticality Noted Date Comments Aspirin 04/28/2019 Food 04/28/2019 Nuts, Oranges, Strawberries Latex 04/28/2019 Lisinopril 04/22/2006 cough Naproxen Other (see comments) 10/29/2013 Other 06/04/2022 Penicillin G Procaine Other (see comments) 02/06/2005 Penicillins Other (see comments) 03/24/2019 Salicylates Other (see comments) 02/06/2005 [place] (Diagnostic) 06/04/2022 Zolpidem Other (see comments) 12/14/2012 Medications esomeprazole (NexIUM) [address] capsule Take 20 mg by mouth daily Active traZODone (DESYREL) 50 MG tablet Take 100 mg by mouth every night Active magnesium oxide 250 MG tablet Take 250 mg by mouth 1 (one) time each day Active Cholecalciferol (VITAMIN D) 25 MCG (1000 UT) tablet Take 1,000 Units by mouth 1 (one) time each day Active acetaminophen (TYLENOL 8 HOUR) 650 MG 8 hr tablet Take 650 mg by mouth every 8 (eight) hours if needed Do not crush, chew, or split. Active levothyroxine (SYNTHROID, LEVOTHROID) 100 MCG tablet 0 Active Acetaminophen-C affeine (EXCEDRIN ASPIRIN FREE PO) Take by mouth Active losartan (COZAAR) 100 MG tablet TAKE 1 TABLET BY MOUTH ONCE DAILY 28 tablet 1 Active rosuvastatin (CRESTOR) 20 MG tablet Take 20 mg by mouth 1 (one) time each day Active Blood Pressure Monitoring (Blood Pressure Cuff) misc 1 Device 1 (one) time each day 1 each 2 Active acetaminophen-c odeine (TYLENOL with CODEINE #4) 300-60 MG per tablet Take 1 tablet by mouth every 4 (four) hours if needed for moderate pain Active omeprazole (PriLOSEC) [address] capsule Take 40 mg by mouth 9 Active levothyroxine (SYNTHROID, LEVOTHROID) 112 MCG tablet 3 Active allopurinol (ZYLOPRIM) 100 MG tablet 3 Active Banophen 25 MG tablet 3 Active Cholecalciferol (Vitamin D3) 25 MCG (1000 UT) capsule 3 Active levoFLOXacin (Levaquin) 500 MG tablet Levaquin 500 mg tablet 1 tablet now as medic does not have macrodantin Active meclizine (ANTIVERT) 25 MG tablet TAKE ONE TABLET BY MOUTH THREE TIMES A DAY NEEDED FOR DIZZINESS (MORNING, NOON, AND BEDTIME) (VIAL) 3 Active metaxalone (SKELAXIN) 800 MG tablet TAKE ONE TABLET TWICE DAILY NEEDED 3 Active pantoprazole (PROTONIX) 40 MG EC tablet 3 Active diphenhydrAMINE (BENADRYL) 25 MG capsule 3 Active carboxymethylce llulose (REFRESH PLUS) 0.5 % solution 3 Active Diclofenac Sodium 1 % cream Apply 1 Dose topically in the morning and 1 Dose in the evening. 60 g 1 4 Active predniSONE (DELTASONE) 10 MG tablet Take 4 tablets (40 mg total) by mouth 1 (one) time each day 12 tablet 5 Active Semaglutide-Jorge ght Management (Wegovy) 0.5 MG/0.5ML solution auto-injector Inject 0.5 mg under the skin per week 2 mL 11 5 Active Active Problems Problem Noted Date Diagnosed Date Patient care statuses 06/04/2022 Fibromyositis 06/04/2022 Idiopathic osteoarthritis 02/28/2022 Chronic pain 02/28/2022 Gastritis 02/28/2022 Stage 3a chronic kidney disease 03/23/2019 Overview (02/28/2020): Update for Diagnosis Load Essential hypertension Resolved Problems Problem Noted Date Diagnosed Date Resolved Date Hypercholesterolemia 03/23/2019 021 Systemic lupus erythematosus 06/26/2006 07/19/2020 Microcytic anemia 07/19/2020 Hypothyroidism 07/19/2020 Encounters Date Type Department Care Team Description 08/24/2024 1:20 PM EDT Office Visit [facility] [address] [place] [address] Niels Zambrano MD Stage 3a chronic kidney disease (HCC) (Primary Dx) from Last 3 Months Immunizations Immunization Administration Dates Next Due PPD Test 11/02/2014 Shingrix 07/02/2021 Family History Medical History Relation Comments Lupus Child daughter Atrial fibrillation Father Prostate cancer Father Cardiomyopathy Mother Coronary artery disease Mother Kidney failure Mother Relation Status Comments Child Father Mother Social History Tobacco Use Types Packs/Day Years Used Date Smoking Tobacco: Former Cigarettes 0 02/24/1977 - 02/24/1991 Comments:Smoking History Inf o:Every day Comments Unknown Sex and Gender Information Value Date Recorded Sex Assigned at Not on file Legal Sex Female 4:32 PM EST Gender Identity Not on file Sexual Orientation Not on file Last Filed Vital Signs Vital Sign Reading Time Taken Comments Blood Pressure 128/78 11/12/2022 9:43 AM EDT Pulse 88 04/01/2022 2:03 PM EST Temperature - - Respiratory Rate - - Oxygen Saturation - - Inhaled Oxygen Concentration - - Weight 123 kg (272 lb) 02/20/2021 3:35 PM EST Height 160 cm (5' 3 ) 11/19/2018 12:00 PM EDT Body Mass Index 48.18 11/19/2018 12:00 PM EDT Plan of Treatment Upcoming Encounters Date Type Department Care Team (Late st Contact Info) Description 11/10/2024 9:20 AM EDT Office Visit [facility], [address] [place] [phone] Niels Zambrano MD [address] [place] [address] [place] [phone] Health Maintenance Due Date Last Done Comments Breast Cancer Screening 1960 Pneumococcal Vaccine: 50+ Ye ars (1 of 2 - PCV) 1981 Colorectal Cancer Screening: Annual FOBT 2011 Colorectal Cancer Screening: Colonoscopy 2011 Colorectal Cancer Screening: Sigmoidoscopy 2011 Influenza Vaccine (#1) 2024 Hepatitis B Vaccine Aged Out No longe r eligible based on patient's age to complete this topic Insurance [facility] Care Dual SNP ([id number]) [place] HARO [id number] Care Teams Logistics Research Engineer Relationship Specialty Start Date End Date Riley Al MD PCP - General 12/29/18
--- OUTSIDE RECORDS SUMMARY | 2024-10-19 11:52 | XMS_ITS | Encounter Summary ---
Author Organization [employer] Address [address] [facility] 7 [place] [address] Care Team Providers Care Dental Office Manager Name Role Phone Riley Al MD Primary Care Provider [phone] Reason for Visit * Reason Onset Date Comments Med Refill 07/13/2024 Encounter Details Date Type Department Care Team (Late st Contact Info) Description 07/13/2024 Refill [facility] MEDICINE [address] [place] [address] Riley Al MD [address] [place] [address] Idiopathic osteoarthritis Social History Tobacco Use Types Packs/Day Years [...] Description 11/15/2024 10:30 AM EDT Telemedicine [facility] MED & PEDS [address] [place] [address] Fabiola Max, JOE [address] [place] [address] 11/22/2024 9:00 AM EDT Office Visit [facility] MED & PEDS [address] [place] [address] Riley Al MD [address] [place] [address] 12/28/2024 9:30 AM EST Office Visit [facility] OPTOMETRY [address] [place] [address] Sarai Leong, OD [address] [place] [address] documented as of this encounter Visit Diagnoses Diagnosis Idiopathic osteoarthritis Osteoarthrosis, unspecified whether generalized or localized, unspecified site documented in this encounter Additional Health Concerns Assessment Noted Time PHQ-9 Depression Total Score: 24 024 11:43 AM EST documented as of this encounter Care Teams Dental Office Manager Relationship Specialty Start Date End Date Riley Al MD [address] [place] [address] PCP - General Internal Medicine 04/03/18 documented as of this encounter
--- OUTSIDE RECORDS SUMMARY | 2024-10-19 11:52 | XMS_ITS | Encounter Summary ---
Author Organization [facility] Address [address] [place] [address] Care Team Providers Care Tank Pumper Panelboard Name Role Phone Kwesi Alves MD Primary Care Provider [phone] Kwesi Alves MD Unavailable [phone] Encounter Details Date Type Department Care Team Description 12/14/2015 [facility] Medical Records [address] [place] [address] Abstract, Provider Social History Tobacco Use Types [...] on filedocumented in this encounter Care Teams Tank Pumper Panelboard Relationship Specialty Start Date End Date Kwesi Alves MD [address] [place] [address] PCP - General 11/29/14 Kwesi Alves MD [address] [place] [address] 11/29/14 documented as of this encounter
--- OUTSIDE RECORDS SUMMARY | 2024-10-19 11:52 | XMS_ITS | Encounter Summary ---
Author Organization [employer] Address [address] [facility] 7 [place] [address] Care Team Providers Care Technology Officer Name Role Phone Riley Al MD Primary Care Provider [phone]- [phone] Reason for Visit * Reason Onset Date Comments Prior Authorization 05/19/2023 Encounter Details Date Type Department Care Team (Late st Contact Info) Description 05/19/2023 Telephone [facility] MEDICINE [address] [place] [address] Riley Al MD [address] [place] [address] Prior Authorization Social History Tobacco Use Types [...] * Telephone Encounter - Robert Heart - 05/19/2023 10:52 AM EDT [facility] requesting the status of the medication Semaglutide-Weight Management (Wegovy) 0.25 MG/0.5ML solution auto-injector states needs a PA documented in this encounter Plan of Treatment Upcoming Encounters Date Type Department Care Team (Late st Contact Info) Description 11/15/2024 10:30 AM EDT Telemedicine [facility] MED & PEDS [address] [place] [address] Fabiola Max RN [address] [place] [address] 11/22/2024 9:00 AM EDT Office Visit [facility] MED & PEDS [address] [place] [address] Riley Al MD [address] [place] [address] 12/28/2024 9:30 AM EST Office Visit [facility] OPTOMETRY [address] [place] [address] Sarai Leong, OD [address] [place] [address] documented as of this encounter Visit Diagnoses Not on filedocumented in this encounter Additional Health Concerns Assessment Noted Time PHQ-9 Depression Total Score: 9 04/16/19 23 10:03 AM EST documented as of this encounter Care Teams Technology Officer Relationship Specialty Start Date End Date Riley Al MD [address] [place] [address] PCP - General Internal Medicine 04/03/18 documented as of this encounter
--- OUTSIDE RECORDS SUMMARY | 2024-10-19 11:52 | XMS_ITS | Encounter Summary ---
Author Organization [facility], Address [address] [facility] [address] [place] [address] Phone Care Team Providers Care Waste Picker Name Role Phone Riley Al MD Primary Care Provider Reason for Visit * Reason Comments Med Refill Encounter Details Date Type Department Care Team (Late st Contact Info) Description 02/12/2021 Refill [facility] [address] [place] [address] Radha Sin PA Social History Tobacco Use [...] Office Visit [facility], [address] [place] [phone] Niels Zambrano MD [address] [place] [id number] documented as of this encounter Visit Diagnoses Not on filedocumented in this encounter Care Teams Waste Picker Relationship Specialty Start Date End Date Riley Al MD PCP - General 12/29/18 documented as of this encounter
--- OUTSIDE RECORDS SUMMARY | 2024-10-19 11:52 | XMS_ITS | Encounter Summary ---
Author Organization [employer] Address [address] [place] [address] Care Team Providers Care Concrete Pipe Making Machine Operator Name Role Phone Riley Al MD Primary Care Provider [phone] Reason for Visit * Reason Onset Date Comments Med Refill 08/13/2023 Encounter Details Date Type Department Care Team ([facility] st Contact Info) Description 08/13/2023 Refill [facility] MED & PEDS [address] [place] [address] Gretchen Shrestha MD [address] [place] [address] Acute left-sided low back pain with left-sided sciatica; Chronic pain syndrome; Acute left-sided low back pain with left-sided sciatica Social History Tobacco Use Types Packs/Day Years Used Date Smoking Tobacco: Former Cigarettes Passive Smoke Exposure: Never Smokeless Tobacco: Never Alcohol Use Standard Drinks/Week Comments Never 0 (1 standard drink = 0.6 oz pur e alcohol) Depression Answer Date Recorded Patient Health Questionnaire-9 Score 9 04/16/2022 Housing Stability Answer Date Recorded What is your housing situation today? I have karolina john 12/09/[address] you li [...] Info) Description 11/15/2024 10:30 AM EDT Telemedicine [facility] MED & PEDS [address] [place] [address] Fabiola Max, JOE [address] [place] [address] 11/22/2024 9:00 AM EDT Office Visit [facility] MED & PEDS [address] [place] [address] Riley Al MD [address] [place] [address] 12/28/2024 9:30 AM EST Office Visit [facility] OPTOMETRY [address] [place] [address] Sarai Leong, OD [address] [place] [address] documented as of this encounter Visit Diagnoses Diagnosis Acute left-sided low back pain with left-sided sciatica Chronic pain syndrome documented in this encounter Additional Health Concerns Assessment Noted Time PHQ-9 Depression Total Score: 9 04/16/19 23 10:03 AM EST documented as of this encounter Care Teams Concrete Pipe Making Machine Operator Relationship Specialty Start Date End Date Riley Al MD [address] [place] [address] PCP - General Internal Medicine 04/03/18 documented as of this encounter
--- OUTSIDE RECORDS SUMMARY | 2024-10-19 11:52 | XMS_ITS | Encounter Summary ---
Author Organization [employer] [facility] Address [address] [place] [address] Care Team Providers Care Junior Account Executive Name Role Phone Kwesi Alves MD Primary Care Provider [phone] Kwesi Alves MD Unavailable [phone] Encounter Details Date Type Department Care Team Description 06/08/2016 Release of Information Medical Records [address] [place] [id number] Abstract, Provider Social History Tobacco Use Types [...] on filedocumented in this encounter Care Teams Junior Account Executive Relationship Specialty Start Date End Date Kwesi Alves MD [address] [place] [address] PCP - General 11/29/14 Kwesi Alves MD [address] [place] [address] 11/29/14 documented as of this encounter
--- OUTSIDE RECORDS SUMMARY | 2024-10-19 11:52 | XMS_ITS | Encounter Summary ---
Author Organization [employer] Address [address] [facility] 7t [place] [address] Care Team Providers Care Safety Lamp Keeper Name Role Phone Riley Al MD Primary Care Provider [phone] Reason for Visit * Reason Comments Med Refill Encounter Details Date Type Department Care Team ([facility] Contact Info) Description 04/11/2022 Refill [facility] MED & PEDS [address] [place] [address] Riley Al MD [address] [place] [address] Dizziness Social History Tobacco Use Types Packs/Day [...] Upcoming Encounters Date Type Department Care Team ([facility] Contact Info) Description 11/15/2024 10:30 AM EDT Telemedicine [facility] MED & PEDS [address] [place] [address] Fabiola Max, RN [address] [place], [place] [id number] 11/22/2024 9:00 AM EDT Office Visit [facility] MED & PEDS [address] [place] [address] Riley Al MD [address] [place] [address] 12/28/2024 9:30 AM EST Office Visit [facility] OPTOMETRY [address] [place] [address] Sarai Leong, OD [address] [place] [address] documented as of this encounter Visit Diagnoses Diagnosis Dizziness Dizziness and giddiness documented in this encounter Care Teams Safety Lamp Keeper Relationship Specialty Start Date End Date Riley Al MD [address] [place] [address] PCP - General Internal Medicine 04/03/18 documented as of this encounter
--- OUTSIDE RECORDS SUMMARY | 2024-10-19 11:52 | XMS_ITS | Encounter Summary ---
Author Organization [employer] Address [address] [facility] 7 [place] [address] Care Team Providers Care Aircraft Cylinder Mechanic Name Role Phone Riley Al MD Primary Care Provider [phone]- [phone] Reason for Visit * Reason Onset Date Comments Med Refill 04/21/2024 Encounter Details Date Type Department Care Team (Late st Contact Info) Description 04/21/2024 Telephone [facility] MEDICINE [address] [place] [address] Riley Al MD [address] [place] [address] Med Refill Social History Tobacco Use Types [...] encounter Miscellaneous Notes * Telephone Encounter - Richard Virgen - 04/21/2024 10:08 AM EST TC from pt requesting medication refill. Medications needing refill : Tirzepatide-Weight Management (Zepbound) 2.5 MG/0.5ML solution auto-injector To be sent to: [facility] [address] [place] [address] documented in this encounter Plan of Treatment Upcoming Encounters Date Type Department Care Team ([facility] st Contact Info) Description 11/15/2024 10:30 AM EDT Telemedicine [facility] MED & PEDS [address] [place] [address] Fabiola Max RN [address] [place] [address] 11/22/2024 9:00 AM EDT Office Visit [facility] MED & PEDS [address] [place] [address] Riley Al MD [address] [place] [address] 12/28/2024 9:30 AM EST Office Visit [facility] OPTOMETRY [address] [place] [address] Sarai Leong, OD [address] [place] [address] documented as of this encounter Visit Diagnoses Not on filedocumented in this encounter Additional Health Concerns Assessment Noted Time PHQ-9 Depression Total Score: 24 024 11:43 AM EST documented as of this encounter Care Teams Aircraft Cylinder Mechanic Relationship Specialty Start Date End Date Riley Al MD [address] [place] [address] PCP - General Internal Medicine 04/03/18 documented as of this encounter
--- OUTSIDE RECORDS SUMMARY | 2024-10-19 11:52 | XMS_ITS | Encounter Summary ---
Author Organization [employer] [facility] Address [address] [place] [address] Care Team Providers Care Financial Coach Name Role Phone Kwesi Alves MD Primary Care Provider [phone] Kwesi Alves MD Unavailable [phone] Encounter Details Date Type Department Care Team Description 01/04/2016 Release of Information Medical Records [address] [place] [id number] Abstract, Provider Social History Tobacco Use Types [...] on filedocumented in this encounter Care Teams Financial Coach Relationship Specialty Start Date End Date Kwesi Alves MD [address] [place] [address] PCP - General 11/29/14 Kwesi Alves MD [address] [place] [address] 11/29/14 documented as of this encounter
--- OUTSIDE RECORDS SUMMARY | 2024-10-19 11:52 | XMS_ITS | Encounter Summary ---
Author Organization [employer] Address [address] [place] [address] Care Team Providers Care Design Eng Name Role Phone Riley Al MD Primary Care Provider [phone] Encounter Details Date Type Department Care Team ([facility] Contact Info) Description 01/14/2023 Orders Only [facility] CHC MED & PEDS [address] [place], [place] [phone] Riley Al MD [address] [place] [address] Acute left-sided low back pain with left-sided [...] housing situation today? I have karolinayoel lopez 12/09/[address] [...] 11/15/2024 10:30 AM EDT Telemedicine [facility] MED & PEDS [address] [place] [address] Fabiola Max RN [address] [place] [address] 11/22/2024 9:00 AM EDT Office Visit [facility] MED & PEDS [address] [place] [address] Riley Al MD [address] [place] [address] 12/28/2024 9:30 AM EST Office Visit [facility] OPTOMETRY [address] [place] [address] Sarai Leong, OD [address] [place] [address] documented as of this encounter Visit Diagnoses Diagnosis Acute left-sided low back pain with left-sided sciatica Chronic pain syndrome documented in this encounter Additional Health Concerns Assessment Noted Time PHQ-9 Depression Total Score: 9 04/16/19 23 10:03 AM EST documented as of this encounter Care Teams Design Eng Relationship Specialty Start Date End Date Riley Al MD [address] [place] [address] PCP - General Internal Medicine 04/03/18 documented as of this encounter
--- OUTSIDE RECORDS SUMMARY | 2024-10-19 11:52 | XMS_ITS | Encounter Summary ---
Author Organization [facility], Address [address] [facility] [address] [place] [address] Phone Care Team Providers Care Sr. Payroll Processor Name Role Phone Riley Al MD Primary Care Provider Reason for Visit * Reason Comments Med Refill Encounter Details Date Type Department Care Team (Late st Contact Info) Description 08/01/2021 Refill [facility] [address] [place] [place] [address] Radha Sin PA Social History Tobacco Use [...] encounter Miscellaneous Notes * Telephone Encounter - Rosalva Beck - 08/08/2021 2:10 PM EDT PT declined patch and gum. documented in this encounter Plan of Treatment Upcoming Encounters Date Type Department Care Team (Late st Contact Info) Description 11/10/2024 9:20 AM EDT Office Visit [facility] [address] [place] [address] Niels Zambrano MD [address] [place] [address] [place] [address] documented as of this encounter Visit Diagnoses Not on filedocumented in this encounter Care Teams Sr. Payroll Processor Relationship Specialty Start Date End Date Riley Al MD PCP - General 12/29/18 documented as of this encounter
--- OUTSIDE RECORDS SUMMARY | 2024-10-19 11:52 | XMS_ITS | Encounter Summary ---
Author Organization [email or web address] [facility] Address [address] [place] [address] Care Team Providers Care Carrier Packer Name Role Phone Kwesi Alves MD Primary Care Provider [phone] Kwesi Alves MD Unavailable [phone] Encounter Details Date Type Department Care Team Description 05/05/2015 Hand Brush Filler Report Medical Records [address] [place] [address] Terrance Sutherland MD Social History Tobacco Use Types Packs/Day Years [...] on filedocumented in this encounter Care Teams Carrier Packer Relationship Specialty Start Date End Date Kwesi Alves MD [address] [place] [address] PCP - General 11/29/14 Kwesi Alves MD [address] [place] [address] 11/29/14 documented as of this encounter
--- OUTSIDE RECORDS SUMMARY | 2024-10-19 11:52 | XMS_ITS | Encounter Summary ---
Author Organization [employer] Address [address] [facility] 7t [place] [address] Care Team Providers Care Grey Goods Examiner Name Role Phone Riley Al MD Primary Care Provider [phone] Encounter Details Date Type Department Care Team ([facility] Contact Info) Description 10/22/2022 Orders Only [facility] MED [facility] [address] [place] [address] Riley Al MD [address] [place] [address] Idiopathic osteoarthritis Social History Tobacco Use Types [...] Upcoming Encounters Date Type Department Care Team ([facility] Contact Info) Description 11/15/2024 10:30 AM EDT Telemedicine [facility] MED [facility] [address] [place] [address] Fabiola Max, RN [address] [place], [place] 11/22/2024 9:00 AM EDT Office Visit [facility] [address] [place], [place] [phone] Riley Al MD [address] [place], [place] 12/28/2024 9:30 AM EST Office Visit [facility] [address] [place] [address] Sarai Leong, OD [address] [place] [address] documented as of this encounter Procedures Procedure Name Priority Date/Time Associated Diagnosis Comments US ABDOMEN COMPLETE WITH ELASTOGRAPHY Routine 10/31/2022 8:16 AM EDT XR CHEST 2 VIEWS Routine 10/31/2022 8:01 AM EDT HEMATOXYLIN AND EOSIN STAIN Routine 10/22/2022 10:19 AM EDT Idiopathic osteoarthritis documented in this encounter Results * US Abdomen Comp w elastography (10/31/2022 8:16 AM EDT) Anatomical Region Laterality Modality Abdomen Ultrasound 10/31/2022 8:16 AM EDT Narrative 11/01/2022 3:41 PM EDT [address] [address] Ultrasound Report Signed Patient: Hilda Reyes MR#: [id number] : 1960 Acct:[id number] Age/Sex: 62 / F ADM Date: 10/31/22 Loc: HO.US Attending Dr: Domitila Lewis PA-C Ordering Physician: Domitila Lewis PA-C Date of Service: 10/31/22 Procedure(s): US abdomen comp w elastography Accession Number(s): [id number] cc: Riley Al MD; Domitila Lewis PA-C EXAMINATION: US COMPLETE ABDOMEN WITH LIVER ELASTOGRAPHY CLINICAL INFORMATION: Obesity. COMPARISON: Renal ultrasound dated 05/14/2018. TECHNIQUE: Real-time imaging of the abdominal viscera. Noninvasive ultrasound liver fibrosis assessment is performed using Yuliya ElastPQ point quantification shear wave elastography (2D-SWE) with a C5-2 MHz transducer. Multiple elastography samples are obtained. FINDINGS: PANCREAS: Normal. The visualized pancreatic head and body are normal in appearance. The remainder of the pancreas is obscured from visualization by the overlying bowel gas. ABDOMINAL AORTA: The proximal, middle, and distal aortic segments are normal in caliber. INFERIOR VENA CAVA: Visualized portions are normal. LIVER: Normal. The liver demonstrates normal size, contour and echogenicity. No focal lesion or intrahepatic biliary duct dilatation. The right lobe measures 19.6 cm in length. The left lobe measures 9.3 cm in length. Portal flow is towards the liver (hepatopetal). Shear wave liver elastography median stiffness is 1.85 m/s (reference: normal median stiffness is 1.3 m/s or less). IQR/median stiffness to assess sampling precision is 0.16 (reference: good quality data set is IQR/median stiffness of 0.15 or less). GALLBLADDER: Normal. The gallbladder is physiologically distended without evidence of stones, sludge, polyps, wall thickening or pericholecystic fluid. COMMON BILE DUCT: Normal in caliber measuring 0.4 cm in diameter. RIGHT KIDNEY: Normal. No hydronephrosis. No renal calculi or focal parenchymal lesions. The kidney measures 10.4 cm in maximum dimension. LEFT KIDNEY: Normal. No hydronephrosis. No renal calculi or focal parenchymal lesions. The kidney measures 10.7 cm in maximum dimension. SPLEEN: Normal. The spleen measures 8.0 cm in maximum dimension. FREE FLUID: None. US/US abdomen comp w elastography IMPRESSION: 1. There is generalized increase in hepatic echotexture, consistent with fatty infiltration or hepatocellular disease. Please correlate clinically. No focal hepatic mass or intrahepatic biliary dilatation is seen. 2. There is mild hepatomegaly. 3. Liver elastography: Although measurements are suggestive of compensated advanced chronic liver disease, there is statistical variability of the sampling which decreases accuracy. REFERENCE: Society of Radiologists in Ultrasound Liver Stiffness Thresholds (2020): LIVER STIFFNESS THRESHOLDS: *Liver Stiffness equal or less than 1.3 m/s: High probability of being normal. *Liver Stiffness less than 1.7 m/s: In the absence of other known clinical signs, rules out compensated advanced chronic liver disease. *Liver Stiffness 1.7-2.1 m/s: Suggestive of compensated advanced chronic liver disease but need further test for confirmation. *Liver Stiffness over 2.1 m/s: Rules in compensated advanced chronic liver disease. *Liver Stiffness over 2.4 m/s: Suggestive of clinically significant portal hypertension. QUALITY OF DATA SET: *IQR/Median value equal or less than 0.15 implies a quality data set. *IQR/Median value over 0.15 implies a poor quality data set. SIGNIFICANT CHANGE FROM PRIOR EXAM: Significant change if liver stiffness measurement is 10% or greater from prior exam. OTHER CONSIDERATIONS: The stage of liver fibrosis may be overestimated in the setting of acute hepatitis, liver inflammation, elevated liver function tests, hepatic vascular congestion, obstructive cholestasis, non-fasting state, and infiltrative diseases such as amyloidosis and lymphoma. In some patients with NAFLD, the liver stiffness thresholds for compensated advanced chronic liver disease may be lower. In causes other than viral hepatitis and NAFLD, liver stiffness thresholds are not well established. Dictated By: Reji Cobb MD Signed By: <Electronically signed by Reji Cobb MD in OV> 11/01/22 1537 DD/ TD/TT: Platform Consultant: CHEO Pierson Note Donotuseinterpreter, Image - 11/01/2022 [place] [address] Ultrasound Report Signed Patient: Chris Reyes#: [id number] : 1960cct:[id number] Age/Sex: 62 / FADM Date: 10/31/22 Loc: HO.US Attending Dr: Domitila Lewis PA-C Ordering Physician: Domitila Lewis PA-C Date of Service: 10/31/22 Procedure(s): US abdomen comp w elastography Accession Number(s): [id number] cc: Riley Al MD; Domitila Lewis PA-C EXAMINATION: US COMPLETE ABDOMEN WITH LIVER ELASTOGRAPHY CLINICAL INFORMATION: Obesity. COMPARISON: Renal ultrasound dated 05/14/2018. TECHNIQUE: Real-time imaging of the abdominal viscera. Noninvasive ultrasound liver fibrosis assessment is performed using Yuliya ElastPQ point quantification shear wave elastography (2D-SWE) with a C5-2 MHz transducer. Multiple elastography samples are obtained. FINDINGS: PANCREAS: Normal. The visualized pancreatic head and body are normal in appearance. The remainder of the pancreas is obscured from visualization by the overlying bowel gas. ABDOMINAL AORTA: The proximal, middle, and distal aortic segments are normal in caliber. INFERIOR VENA CAVA: Visualized portions are normal. LIVER: Normal. The liver demonstrates normal size, contour and echogenicity. No focal lesion or intrahepatic biliary duct dilatation. The right lobe measures 19.6 cm in length. The left lobe measures 9.3 cm in length. Portal flow is towards the liver (hepatopetal). Shear wave liver elastography median stiffness is 1.85 m/s (reference: normal median stiffness is 1.3 m/s or less). IQR/median stiffness to assess sampling precision is 0.16 (reference: good quality data set is IQR/median stiffness of 0.15 or less). GALLBLADDER: Normal. The gallbladder is physiologically distended without evidence of stones, sludge, polyps, wall thickening or pericholecystic fluid. COMMON BILE DUCT: Normal in caliber measuring 0.4 cm in diameter. RIGHT KIDNEY: Normal. No hydronephrosis. No renal calculi or focal parenchymal lesions. The kidney measures 10.4 cm in maximum dimension. LEFT KIDNEY: Normal. No hydronephrosis. No renal calculi or focal parenchymal lesions. The kidney measures 10.7 cm in maximum dimension. SPLEEN: Normal. The spleen measures 8.0 cm in maximum dimension. FREE FLUID: None. US/US abdomen comp w elastography IMPRESSION: 1. There is generalized increase in hepatic echotexture, consistent with fatty infiltration or hepatocellular disease. Please correlate clinically. No focal hepatic mass or intrahepatic biliary dilatation is seen. 2. There is mild hepatomegaly. 3. Liver elastography: Although measurements are suggestive of compensated advanced chronic liver disease, there is statistical variability of the sampling which decreases accuracy. REFERENCE: Society of Radiologists in Ultrasound Liver Stiffness Thresholds (2020): LIVER STIFFNESS THRESHOLDS: *Liver Stiffness equal or less than 1.3 m/s: High probability of being normal. *Liver Stiffness less than 1.7 m/s: In the absence of other known clinical signs, rules out compensated advanced chronic liver disease. *Liver Stiffness 1.7-2.1 m/s: Suggestive of compensated advanced chronic liver disease but need further test for confirmation. *Liver Stiffness over 2.1 m/s: Rules in compensated advanced chronic liver disease. *Liver Stiffness over 2.4 m/s: Suggestive of clinically significant portal hypertension. QUALITY OF DATA SET: *IQR/Median value equal or less than 0.15 implies a quality data set. *IQR/Median value over 0.15 implies a poor quality data set. SIGNIFICANT CHANGE FROM PRIOR EXAM: Significant change if liver stiffness measurement is 10% or greater from prior exam. OTHER CONSIDERATIONS: The stage of liver fibrosis may be overestimated in the setting of acute hepatitis, liver inflammation, elevated liver function tests, hepatic vascular congestion, obstructive cholestasis, non-fasting state, and infiltrative diseases such as amyloidosis and lymphoma. In some patients with NAFLD, the liver stiffness thresholds for compensated advanced chronic liver disease may be lower. In causes other than viral hepatitis and NAFLD, liver stiffness thresholds are not well established. Dictated By: Reji Cobb MD Signed By: <Electronically signed by Reji Cobb MD in OV> 11/01/22 1537 DD/ 0816 TD/TT: Platform Consultant: CHEO Alonzo Provider Result Type Result Stat us [facility] External Provider IMG US PROCEDURES Final Result * XR Chest 2 Views (10/31/2022 8:01 AM EDT) Anatomical Region Laterality Modality Chest Radiographic Vi ging 10/31/2022 8:01 AM EDT Narrative 11/01/2022 1:33 AM EDT [address] [address] XRay Report Signed Patient: Hilda Reyes MR#: [id number] : 1960 Acct:[id number] Age/Sex: 62 / F ADM Date: 10/31/22 Loc: HO.US Attending Dr: Domitila Lewis PA-C Ordering Physician: Domitila Lewis PA-C Date of Service: 10/31/22 Procedure(s): XR chest 2V Accession Number(s): [id number] cc: Riley Al MD; Domitila Lewis PA-C EXAMINATION: XR CHEST CLINICAL INFORMATION: Morbid obesity. COMPARISON: None available. TECHNIQUE: 2 views of the chest were obtained. FINDINGS: The lung volumes are low. The cardiomediastinal silhouette is within normal limits. There is no focal lung consolidation or pleural effusion. A spinal stimulator device is at the level of T7 posteriorly. The soft tissues are unremarkable. XR/XR chest 2V IMPRESSION: No active cardiopulmonary disease. Dictated By: Marcelo Eduardo Signed By: <Electronically signed by Marcelo Eduardo in OV> 11/01/22 0129 DD/ 08 TD/TT: Platform Consultant: Procedure Note Donotuseinterpreter, Image - 11/01/2022 [place] [address] XRay Report Signed Patient: Chris Reyes#: [id number] : 2Acct:[id number] Age/Sex: 62 / FADM Date: 10/31/22 Loc: . Attending Dr: Domitila Lewis PA-C Ordering Physician: Domitila Lewis PA-C Date of Service: 10/31/22 Procedure(s): XR chest 2V Accession Number(s): [id number] cc: Riley Al MD; Domitila Lewis PA-C EXAMINATION: XR CHEST CLINICAL INFORMATION: Morbid obesity. COMPARISON: None available. TECHNIQUE: 2 views of the chest were obtained. FINDINGS: The lung volumes are low. The cardiomediastinal silhouette is within normal limits. There is no focal lung consolidation or pleural effusion. A spinal stimulator device is at the level of T7 posteriorly. The soft tissues are unremarkable. XR/XR chest 2V IMPRESSION: No active cardiopulmonary disease. Dictated By: Marcelo Eduardo Signed By: <Electronically signed by Marcelo Eduardo in OV> 11/01/22 0129 DD/ 08 TD/TT: Platform Consultant: [facility] External Provider IMG XR PROCEDURES Edited Result - Final * Hematoxylin and Eosin Stain (10/22/2022 10:19 AM EDT) 10/22/2022 10:1 9 AM EDT 10/22/2022 11:11 AM EDT [facility] - 10/23/2022 2:08 PM EDT ----- ------- Name: Hilda Reyes Age/Sex: 62/F : 1960 Unit#: [id number] Attend Dr: Gold Langston MD Re10/22/22 Status: [facility] Location: HO.SSS Disch: ----- ------- SPEC : [id number] RECD: 10/22/22-1110 STATUS: OPAL GIBBS NUM: [id number] MAIN: 10/22/22-1019 [facility] DR: Gold Langston MD ENTERED: 10/22/22-1117 SP TYPE: Surgical OTHR DR: Riley Al MD ORDERED: HE Stain/6, Gross Micro L4/4, IHC/2, H. pylori/2 Diagnosis A. Stomach, antrum, biopsies: Reactive gastropathy, no evidence of H. pylori, intestinal metaplasia no dysplasia. B. Stomach, proximal sleeve, biopsies: Mild chronic inactive gastritis, no evidence of H. pylori, intestinal metaplasia no dysplasia. C. Gastroesophageal junction, biopsies: Inflamed squamocolumnar junctional mucosa with reactive changes, no evidence of intestinal metaplasia or dysplasia. D. Esophagus, biopsies: Esophageal squamous mucosa with no diagnostic alteration, no evidence of active esophagitis. Clinical History Pre-Op Dx: GERD Post-Op Dx: Esophagitis, redundant proximal gastric fundus Microscopic Description Microscopic sections reviewed. Helicobacter pylori immunostains is performed on part a B and C are negative. Material Received A. Antrum bx's B. Proximal sleeve bx's C. GE junction bx's D. Esophagus bx's Gross Description The specimens are received in formalin in 4 parts all labeled with the patient's name and date of . Part A is additionally labeled antrum biopsy and consists of a fragment of yellow soft tissue measuring up to 0.4 cm in greatest dimension. The entire specimen is submitted in A. Part B is additionally labeled proximal sleeve and consists of a fragment of yellow soft tissue measuring up to 0.4 cm in greatest dimension. The entire specimen is submitted in B. Part C is additionally labeled GE junction biopsy and consists of fragments of yellow soft tissue measuring up to 0.3 cm in greatest dimension. The entire specimen is submitted in C. CONTINUED ON NEXT PAGE ----- ------- Name: Hilda Reyes Age/Sex: 62/F : 1960 [id number]#: [id number] Attend Dr: Gold Langston MD Re10/22/22 Status: [facility] Location: [facility] Disch: ----- ------- SPEC : [id number] RECD: 10/22/22 STATUS: OPAL GIBBS NUM: [id number] MAIN: 10/22/22-1019 [facility] DR: Gold Langston MD ENTERED: 10/22/22-1117 SP TYPE: Surgical OTHR DR: Riley Al MD ORDERED: HE Stain/6, Gross Micro L4/4, IHC/2, H. pylori/2 Gross Description (Continued) Part D is additionally labeled esophagus biopsy and consists of small fragments of yellow soft tissue measuring up to 0.2 cm in greatest dimension. The entire specimen is submitted in D. Special studies ordered and performed: immunostain for H. pylori on B and C. Copies To: Riley Al MD [address] [place] [address] [id number] Gold Langston MD [address] [place] [address] [place] [address] ----- ------- Signed (signature on file) Marixa Young MD 10/23/22 0328 ----- ------- END OF REPORT [facility] External Provider LAB BLO OD ORDERABLES Final Result [facility] [address] [place] [address] [phone] documented in this encounter Visit Diagnoses Diagnosis Idiopathic osteoarthritis Osteoarthrosis, unspecified whether generalized or localized, unspecified site documented in this encounter Additional Health Concerns Assessment Noted Time PHQ-9 Depression Total Score: 9 04/16/19 23 10:03 AM EST documented as of this encounter Care Teams Grey Goods Examiner Relationship Specialty Start Date End Date Riley Al MD [address] [place] [id number] PCP - General Internal Medicine 04/03/18 documented as of this encounter
--- OUTSIDE RECORDS SUMMARY | 2024-10-19 11:52 | XMS_ITS | Encounter Summary ---
Author Organization [facility] Address [address] [place] [address] Care Team Providers Care Nurse Quality Name Role Phone Kwesi Alves MD Primary Care Provider [phone] Kwesi Alves MD Unavailable [phone] Encounter Details Date Type Department Care Team Description 09/04/2022 SCAN Medical Records [address] [place] [address] [facility] Social History Tobacco Use Types Packs/Day Years [...] on filedocumented in this encounter Care Teams Nurse Quality Relationship Specialty Start Date End Date Kwesi Alves MD [address] [place] [address] PCP - General 11/29/14 Kwesi Alves MD [address] [place] [address] 11/29/14 documented as of this encounter
--- OUTSIDE RECORDS SUMMARY | 2024-10-19 11:52 | XMS_ITS | Encounter Summary ---
Author Organization [facility] Address [address] [place] [address] Care Team Providers Care Technology Sales Specialist Name Role Phone Kwesi Alves MD Primary Care Provider [phone] Kwesi Alves MD Unavailable [phone] Encounter Details Date Type Department Care Team Description 02/07/2015 Pt. Non Urgent Medic al Question Adult Medicine - [place] [address] [place] [address] Kwesi Alves MD [address] [place] [address] Social History Tobacco Use Types Packs/Day Years Used Date Smoking Tobacco: Former Smokeless Tobacco: Never Comments:quit over 20 yrs ag o Alcohol Use Standard Drinks/Week Comments Yes 0 (1 standard drink = 0.6 oz pur e alcohol) rare Sex Assigned at Date Recorded Not on file documented as of this encounter Progress Notes * Lianet Barragan L.P.NLinda - 02/07/2015 9:38 AM ESTFrom: Hilda Reyes To: Kwesi Alves MD Sent: 02/07/2015 9:17 AM EST Subject: Forms to be filled out [employer] is dropping forms from caregivers to be filled out so that I can get some much needed help.Please complete it as soon as possible. I am trying to get better but I need some help thanking youin advance Hilda documented in this encounter Plan of Treatment Not on file documented as of this encounter Visit Diagnoses Not on filedocumented in this encounter Care Teams Technology Sales Specialist Relationship Specialty Start Date End Date Kwesi Alves MD [address] [place] [address] PCP - General 11/29/14 Kwesi Alves MD [address] [place] [address] 11/29/14 documented as of this encounter
--- OUTSIDE RECORDS SUMMARY | 2024-10-19 11:52 | XMS_ITS | Encounter Summary ---
Author Organization [employer] Address [address] [facility] 7t [place] [address] Care Team Providers Care Chemistry Teacher Name Role Phone Riley Al MD Primary Care Provider [phone] Reason for Visit * Reason Comments Med Refill Encounter Details Date Type Department Care Team ([facility] st Contact Info) Description 09/30/2023 Refill [facility] [address] [place] [address] Riley Al MD [address] [place] [address] Acute left-sided low back pain with left-sided [...] Upcoming Encounters Date Type Department Care Team ([facility] st Contact Info) Description 11/15/2024 10:30 AM EDT Telemedicine [facility] MED & PEDS [address] [place] [address] Fabiola Max, JOE [address] [place] [address] 11/22/2024 9:00 AM EDT Office Visit [facility] MED [facility] PED[facility] [address] [place] [address] Riley Al MD [address] [place] [address] 12/28/2024 9:30 AM EST Office Visit [facility] [address] [place] [address] Sarai Leong, OD [address] [place] [address] documented as of this encounter Visit Diagnoses Diagnosis Acute left-sided low back pain with left-sided sciatica Chronic pain syndrome documented in this encounter Additional Health Concerns Assessment Noted Time PHQ-9 Depression Total Score: 9 04/16/19 23 10:03 AM EST documented as of this encounter Care Teams Chemistry Teacher Relationship Specialty Start Date End Date Riley Al MD [address] [place] [address] PCP - General Internal Medicine 04/03/18 documented as of this encounter
--- OUTSIDE RECORDS SUMMARY | 2024-10-19 11:52 | XMS_ITS | Encounter Summary ---
Author Organization [facility] Address [address] [place] [address] Care Team Providers Care Bat Boy/Girl Name Role Phone Kwesi Alves MD Primary Care Provider [phone] Kwesi Alves MD Unavailable [phone] Encounter Details Date Type Department Care Team Description 05/11/2015 Home Health Certification Medical Records [address] [place] [address] Social History Tobacco Use Types Packs/Day Years [...] on filedocumented in this encounter Care Teams Bat Boy/Girl Relationship Specialty Start Date End Date Kwesi Alves MD [address] [place] [address] PCP - General 11/29/14 Kwesi Alves MD [address] [place] [address] 11/29/14 documented as of this encounter
--- OUTSIDE RECORDS SUMMARY | 2024-10-19 11:52 | XMS_ITS | Encounter Summary ---
Author Organization [employer] Address [address] [facility] 7t [place] [address] Care Team Providers Care And Taxi Instructor Bus Trolley Name Role Phone Riley Al MD Primary Care Provider [phone] Encounter Details Date Type Department Care Team ([facility] Contact Info) Description 11/18/2022 Orders Only [facility] MED & PEDS [address] [place] [address] Riley Al MD [address] [place] [address] Chronic pain syndrome (Primary Dx) Social History Tobacco Use Types [...] Upcoming Encounters Date Type Department Care Team ([facility] Contact Info) Description 11/15/2024 10:30 AM EDT Telemedicine [facility] MED & PEDS [address] [place] [address] Fabiola Max, JOE [address] [place] [address] 11/22/2024 9:00 AM EDT Office Visit [facility] MED [facility] PEDS [address] [place] [address] Riley Al MD [address] [place] [address] 12/28/2024 9:30 AM EST Office Visit [facility] OPTOMETRY [address] [place] [address] Sarai Leong, OD [address] [place] [address] documented as of this encounter Visit Diagnoses Diagnosis Chronic pain syndrome- Primary documented in this encounter Additional Health Concerns Assessment Noted Time PHQ-9 Depression Total Score: 9 04/16/19 23 10:03 AM EST documented as of this encounter Care Teams And Taxi Instructor Bus Trolley Relationship Specialty Start Date End Date Riley Al MD [address] [place] [address] PCP - General Internal Medicine 04/03/18 documented as of this encounter
--- OUTSIDE RECORDS SUMMARY | 2024-10-19 11:52 | XMS_ITS | Encounter Summary ---
Author Organization [employer] Address 75 [facility] 7 [place] [address] Care Team Providers Care Keeler Polygraph Operator Name Role Phone Riley Al MD Primary Care Provider [phone]- [phone] Reason for Visit * Reason Onset Date Comments Med Refill 11/12/2022 Encounter Details Date Type Department Care Team ([facility] st Contact Info) Description 11/12/2022 Refill [facility] CHC MED & PEDS [address] [place] [address] Riley Al MD 505 [place], [place] [phone] Essential hypertension; Chronic pain syndrome; Acute left-sided low back [...] Telephone Encounter - Riley Al MD - 11/26/2022 7:41 PM EDT duplicate * Telephone Encounter - Angie Sorensen - 11/12/2022 2:46 PM EDT Tc from pt requesting medication refill on acetaminophen (Tylenol 8 Hour) 650 MG ER tablet, metaxalone (Skelaxin) 800 MG tablet, acetaminophen 300 mg-codeine 30 mg tablet documented in this encounter Plan of Treatment Upcoming Encounters Date Type Department Care Team (Late st Contact Info) Description 11/15/2024 10:30 AM EDT Telemedicine [facility] MED & PEDS [address] [place] [address] Fabiola Max RN 505 [place] [address] 11/22/2024 9:00 AM EDT Office Visit [facility] MED & PEDS [address] [place] [address] Riley Al MD 505 [place] [address] 12/28/2024 9:30 AM EST Office Visit [facility] OPTOMETRY [address] [place] [address] TarkaSarai, OD [address] [place] [address] documented as of this encounter Visit Diagnoses Diagnosis Essential hypertension Unspecified essential hypertension Chronic pain syndrome Acute left-sided low back pain with left-sided sciatica documented in this encounter Additional Health Concerns Assessment Noted Time PHQ-9 Depression Total Score: 9 04/16/19 23 10:03 AM EST documented as of this encounter Care Teams Keeler Polygraph Operator Relationship Specialty Start Date End Date Riley Al MD [address] [place] [address] PCP - General Internal Medicine 04/03/18 documented as of this encounter
--- OUTSIDE RECORDS SUMMARY | 2024-10-19 11:52 | XMS_ITS | Encounter Summary ---
Author Organization [employer] Address [address] [facility] [address] 7[address] [place] [address] Care Team Providers Care Director Of Manufacturing Operations Name Role Phone Riley Al MD Primary Care Provider [phone] [phone] Encounter Details Date Type Department Care Team ([facility] st Contact Info) Description 07/01/2023 Orders Only [facility] CHC MED & PEDS [address] [place] [address] Provider, MD Jaret Social History Tobacco Use Types Packs/Day Years [...] t he electric, gas, oil or water Xtime threatened to shut off services in your [...] EDT Telemedicine [facility] MED & PEDS [address] [place] [address] Fabiola Max RN 505 [place] [address] 11/22/2024 9:00 AM EDT Office Visit [facility] MED & PEDS [address] [place] [address] Riley Al MD 505 [place] [address] 12/28/2024 9:30 AM EST Office Visit [facility] OPTOMETRY [address] [place] [address] TarkaSarai, OD [address] [place] [address] documented as of this encounter Procedures Procedure Name Priority Date/Time Associated Diagnosis Comments EMG Routine 06/30/2023 10:00 AM EDT documented in this encounter Results * EMG (06/30/2023 10:00 AM EDT) us Historical Provider NEUROLOGY ORDERABLES Aracelis l Result documented in this encounter Visit Diagnoses Not on filedocumented in this encounter Additional Health Concerns Assessment Noted Time PHQ-9 Depression Total Score: 9 04/16/19 23 10:03 AM EST documented as of this encounter Care Teams Director Of Manufacturing Operations Relationship Specialty Start Date End Date Riley Al MD 505 [place] [address] PCP - General Internal Medicine 04/03/18 documented as of this encounter
--- OUTSIDE RECORDS SUMMARY | 2024-10-19 11:52 | XMS_ITS | Encounter Summary ---
Author Organization [employer] Address 75 [facility] 7t [place] [address] Care Team Providers Care Manager Project Name Role Phone Riley Al MD Primary Care Provider [phone] Encounter Details Date Type Department Care Team ([facility] st Contact Info) Description 07/23/[address] [facility] CHC MED & PEDS [address] [place], [place] [phone] Riley Al MD 505 [place] [address] Acute left-sided low back pain with left-sided [...] 11/15/2024 10:30 AM EDT Telemedicine [facility] MED & PEDS [address] [place] [address] Fabiola Max RN 505 [place] [address] 11/22/2024 9:00 AM EDT Office Visit [facility] MED & PEDS [address] [place] [address] Riley Al MD 505 [place] [address] 12/28/2024 9:30 AM EST Office Visit [facility] OPTOMETRY [address] [place], [place] [phone] Sarai Leong, OD [address] [place] [address] documented as of this encounter Visit Diagnoses Diagnosis Acute left-sided low back pain with left-sided sciatica Chronic pain syndrome documented in this encounter Additional Health Concerns Assessment Noted Time PHQ-9 Depression Total Score: 24 024 11:43 AM EST documented as of this encounter Care Teams Manager Project Relationship Specialty Start Date End Date Riley Al MD [address] [place] [address] PCP - General Internal Medicine 04/03/18 documented as of this encounter
--- OUTSIDE RECORDS SUMMARY | 2024-10-19 11:52 | XMS_ITS | Encounter Summary ---
Author Organization [employer] Address 75 [facility] 7t [place] [address] Care Team Providers Care Public Address System Mechanic Name Role Phone Riley Al MD Primary Care Provider [phone]- [phone] Reason for Visit * Reason Comments Med Refill Encounter Details Date Type Department Care Team (Late st Contact Info) Description 10/17/2022 Refill [facility] MED & PEDS [address] [place] [address] Riley Al MD 505 [place] [address] Essential hypertension; Chronic pain syndrome; Acute left-sided [...] Telemedicine [facility] MED & PEDS [address] [place] [address] Fabiola Max, JOE 505 [place] [address] 11/22/2024 9:00 AM EDT Office Visit [facility] MED & PEDS [address] [place] [address] Riley Al MD 505 [place] [address] 12/28/2024 9:30 AM EST Office Visit [facility] OPTOMETRY [address] [place], [place] [phone] Sarai Leong OD [address] [place] [address] documented as of this encounter Visit Diagnoses Diagnosis Essential hypertension Unspecified essential hypertension Chronic pain syndrome Acute left-sided low back pain with left-sided sciatica documented in this encounter Additional Health Concerns Assessment Noted Time PHQ-9 Depression Total Score: 9 04/16/19 23 10:03 AM EST documented as of this encounter Care Teams Public Address System Mechanic Relationship Specialty Start Date End Date Riley Al MD 505 [place] [address] PCP - General Internal Medicine 04/03/18 documented as of this encounter
--- OUTSIDE RECORDS SUMMARY | 2024-10-19 11:52 | XMS_ITS | Encounter Summary ---
Author Organization [facility] Address [address] [place] [address] Care Team Providers Care Pattern Chain Builder Name Role Phone Kwesi Alves MD Primary Care Provider [phone] Kwesi Alves MD Primary Care Provider [phone] Kwesi Alves MD Unavailable [phone] Encounter Details Date Type Department Care Team Description 01/04/2009 Hospital Medical Records [address] [place] [address] Kip Reddy DO Social History Tobacco Use Types Packs/Day Years [...] on filedocumented in this encounter Care Teams Pattern Chain Builder Relationship Specialty Start Date End Date Kwesi Alves MD [address] [place] [address] PCP - General 04/08/03 11/28/14 Kwesi Alves MD [address] [place] [address] PCP - General 11/29/14 Kwesi Alves, [address] [place] [address] [place] [address] 11/29/14 documented as of this encounter
--- OUTSIDE RECORDS SUMMARY | 2024-10-19 11:52 | XMS_ITS | Encounter Summary ---
Author Organization [employer] Address 75 [facility] 7t [place] [address] Care Team Providers Care Barrelhead Inspector Name Role Phone Riley Al MD Primary Care Provider [phone]- [phone] Reason for Visit * Reason Onset Date Comments Medication Question 01/20/2023 new script 01/20/2023 Encounter Details Date Type Department Care Team ([facility] st Contact Info) Description 01/20/2023 Telephone [facility] MEDICINE [address] [place] [address] Riley Al MD 505 [place] [address] Medication Question; new script Social History Tobacco Use Types Packs/Day Years [...] encounter Miscellaneous Notes * Telephone Encounter - Swetha Rey - 01/20/2023 11:41 AM EST Tc from [facility] stating that medication metaxalone (Skelaxin) 800 MG tablet Parikh mcneal will be $184.99. Echavarria stated if PCP can send a replacement that could be covered. PCP Dr. Al documented in this encounter Plan of Treatment Upcoming Encounters Date Type Department Care Team ([facility] st Contact Info) Description 11/15/2024 10:30 AM EDT Telemedicine [facility] MED & PEDS [address] [place] [address] Fabiola Max, JOE 505 [place] [address] 11/22/2024 9:00 AM EDT Office Visit [facility] MED & PEDS [address] [place] [address] Riley Al MD 505 [place] [address] 12/28/2024 9:30 AM EST Office Visit [facility] OPTOMETRY [address] [place] [address] Sarai Leong, OD 267 [place] [address] documented as of this encounter Visit Diagnoses Not on filedocumented in this encounter Additional Health Concerns Assessment Noted Time PHQ-9 Depression Total Score: 9 04/16/19 23 10:03 AM EST documented as of this encounter Care Teams Barrelhead Inspector Relationship Specialty Start Date End Date Riley Al MD [address] [place] [address] PCP - General Internal Medicine 04/03/18 documented as of this encounter
--- OUTSIDE RECORDS SUMMARY | 2024-10-19 11:52 | XMS_ITS | Encounter Summary ---
Author Organization [employer] Address 75 [facility] 7 [place] [address] Care Team Providers Care Marketing Services Vice President Name Role Phone Riley Al MD Primary Care Provider [phone] Reason for Visit * Reason Onset Date Comments Med Refill 08/30/2022 Encounter Details Date Type Department Care Team ([facility] st Contact Info) Description 08/30/2022 Refill [facility] CHC MED & PEDS [address] [place] [address] Riley Al MD [address] [place], [place] [phone] Social History Tobacco Use Types Packs/Day Years [...] encounter Miscellaneous Notes * Telephone Encounter - Angie Edu - 08/30/2022 3:32 PM EDT Tc from pt requesting medication refill on acetaminophen (Tylenol 8 Hour) 650 MG ER tablet documented in this encounter Plan of Treatment Upcoming Encounters Date Type Department Care Team (Late st Contact Info) Description 11/15/2024 10:30 AM EDT Telemedicine [facility] MED & PEDS [address] [place] [address] Fabiola Max, JOE 505 [place] [address] 11/22/2024 9:00 AM EDT Office Visit [facility] MED & PEDS 505 [place] [address] Riley Al MD [address] [place] [address] 12/28/2024 9:30 AM EST Office Visit [facility] OPTOMETRY [address] [place], [place] [phone] Sarai Leong OD 267 [place] [address] documented as of this encounter Visit Diagnoses Not on filedocumented in this encounter Additional Health Concerns Assessment Noted Time PHQ-9 Depression Total Score: 9 04/16/19 23 10:03 AM EST documented as of this encounter Care Teams Marketing Services Vice President Relationship Specialty Start Date End Date Riley Al MD [address] [place] [address] PCP - General Internal Medicine 04/03/18 documented as of this encounter
--- OUTSIDE RECORDS SUMMARY | 2024-10-19 11:52 | XMS_ITS | Encounter Summary ---
Author Organization [employer] Address 75 [facility] 7t [place] [address] Care Team Providers Care Spot Checker Name Role Phone Riley Al MD Primary Care Provider [phone]- [phone] Reason for Visit * Reason Comments Med Refill Encounter Details Date Type Department Care Team ([facility] Contact Info) Description 04/09/2022 Refill [facility] CHC MED & PEDS [address] [place], [place] [phone] Riley Al MD 505 [place] [address] Chronic pain syndrome; Primary insomnia; Vitamin D deficiency; Hypercholesterolemia; Other chronic gastritis without hemorrhage; Essential hypertension; Hypomagnesemia; Dizziness; Acquired hypothyroidism Social History Tobacco Use Types Packs/Day Years [...] [facility] MED & PEDS [address] [place] [address] Fabiola Max, RN 505 [place] [address] 11/22/2024 9:00 AM EDT Office Visit [facility] MED & PEDS [address] [place] [address] Riley Al MD 505 [place] [address] 12/28/2024 9:30 AM EST Office Visit [facility] OPTOMETRY [address] [place] [address] Sarai Leong, OD [address] [place] [address] documented as of this encounter Visit Diagnoses Diagnosis Chronic pain syndrome Primary insomnia Persistent disorder of initiating or maintaining sleep Vitamin D deficiency Hypercholesterolemia Pure hypercholesterolemia Other chronic gastritis without hemorrhage Essential hypertension Unspecified essential hypertension Hypomagnesemia Disorders of magnesium metabolism Dizziness Dizziness and giddiness Acquired hypothyroidism Unspecified hypothyroidism documented in this encounter Care Teams Spot Checker Relationship Specialty Start Date End Date Riley Al MD [address] [place] [address] PCP - General Internal Medicine 04/03/18 documented as of this encounter
--- OUTSIDE RECORDS SUMMARY | 2024-10-19 11:52 | XMS_ITS | Encounter Summary ---
Author Organization [facility], Address [address] [facility] [address] [place] [address] Phone Care Team Providers Care Commercial Engineer Name Role Phone Riley Al MD Primary Care Provider Reason for Visit * Reason Comments Med Refill Encounter Details Date Type Department Care Team (Late st Contact Info) Description 08/29/2021 Refill [facility] [address] [place] [address] Radha Sin PA Social History [...] * Telephone Encounter - Rosalva Beck - 08/29/2021 2:59 PM EDT Pt has refused to refill at the moment. documented in this encounter Plan of Treatment Upcoming Encounters Date Type Department Care Team (Late st Contact Info) Description 11/10/2024 9:20 AM EDT Office Visit [facility] [address] [place] [address] Niels Zambrano MD [address] [place] [address] [place] [address] documented as of this encounter Visit Diagnoses Not on filedocumented in this encounter Care Teams Commercial Engineer Relationship Specialty Start Date End Date Riley Al MD PCP - General 12/29/18 documented as of this encounter
--- OUTSIDE RECORDS SUMMARY | 2024-10-19 11:52 | XMS_ITS | Encounter Summary ---
Author Organization [facility] Address [address] [facility] [address] [place] [address] Phone Care Team Providers Care Roll Skinner Name Role Phone Riley Al MD Primary Care Provider [phone] Reason for Visit * Reason Comments Med Refill Encounter Details Date Type Department Care Team (Late st Contact Info) Description 09/05/2021 Refill [facility] [address] [place] [phone] Radha Sin PA Social History Tobacco Use [...] Office Visit [facility] [address] [place] [phone] Niels Zambrano MD [address] [place] [address] [place] [phone] documented as of this encounter Visit Diagnoses Not on filedocumented in this encounter Care Teams Roll Skinner Relationship Specialty Start Date End Date Riley Al MD PCP - General 12/29/18 documented as of this encounter
--- OUTSIDE RECORDS SUMMARY | 2024-10-19 11:52 | XMS_ITS | Encounter Summary ---
Author Organization [facility] Address [address] [place] [address] Care Team Providers Care Trade Manager Name Role Phone Kwesi Alves MD Primary Care Provider [phone] Kwesi Alves MD Primary Care Provider [phone] Kwesi Alves MD Unavailable [phone] Encounter Details Date Type Department Care Team Description 2014 ONCOLOGY PHYSICIAN ASSISTANT/[facility] Report Medical Records [address] [place] [address] Abstract, Provider Social History Tobacco Use Types [...] on filedocumented in this encounter Care Teams Trade Manager Relationship Specialty Start Date End Date Kwesi Alves MD [address] [place] [address] PCP - General 04/08/03 11/28/14 Kwesi Alves MD [address] [place] [address] PCP - General 11/29/14 Kwesi Alves MD [address] [place] [address] 11/29/14 documented as of this encounter
--- OUTSIDE RECORDS SUMMARY | 2024-10-19 11:52 | XMS_ITS | Encounter Summary ---
Author Organization [facility] Address [address] [place] [address] Care Team Providers Care Valet Runner Name Role Phone Kwesi Alves MD Primary Care Provider [phone] Kwesi Alves MD Unavailable [phone] Encounter Details Date Type Department Care Team Description 01/16/2015 NUCLEAR POWERPLANT SUPERVISOR/[facility] Report Medical Records [address] [place] [address] Abstract, Provider Social History Tobacco Use Types [...] on filedocumented in this encounter Care Teams Valet Runner Relationship Specialty Start Date End Date Kwesi Alves MD [address] [place] [address] PCP - General 11/29/14 Kwesi Alves MD [address] [place] [address] 11/29/14 documented as of this encounter
--- OUTSIDE RECORDS SUMMARY | 2024-10-19 11:52 | XMS_ITS | Encounter Summary ---
Author Organization [facility] Address [address] [place] [address] Care Team Providers Care Route Sales Manager Name Role Phone Kwesi Alves MD Primary Care Provider [phone] Kwesi Alves MD Primary Care Provider [phone] Kwesi Alves MD Unavailable [phone] Encounter Details Date Type Department Care Team Description 02/23/2014 Home Health Certification Medical Records [address] [place] [address] Social History Tobacco Use Types Packs/Day Years [...] on filedocumented in this encounter Care Teams Route Sales Manager Relationship Specialty Start Date End Date Kwesi Alves MD [address] [place] [address] PCP - General 04/08/03 11/28/14 Kwesi Alves MD [address] [place] [address] PCP - General 11/29/14 Kwesi Alves MD [address] [place] [address] 11/29/14 documented as of this encounter
--- OUTSIDE RECORDS SUMMARY | 2024-10-19 11:52 | XMS_ITS | Encounter Summary ---
Author Organization [employer] Address 75 [facility] 7 [place] [address] Care Team Providers Care Inspector Pawnshop Detail Name Role Phone Riley Al MD Primary Care Provider [phone] Reason for Visit * Reason Onset Date Comments Medication Question 07/13/2024 Encounter Details Date Type Department Care Team ([facility] st Contact Info) Description 07/13/2024 Telephone [facility] MEDICINE [address] [place] [address] Riley Al MD [address] [place] [address] Medication Question Social History Tobacco Use Types [...] encounter Miscellaneous Notes * Telephone Encounter - Margot Mackey - 07/13/2024 9:41 AM EDT Tc from [facility] requesting new script. Medication: metaxalone (Skelaxin) 800 MG tablet Directions: 1 tablet by mouth 3 times a day 28 days supply, 84 pills. To be sent to: [facility] [address] [place] [address] also requesting alternative medication due to insurance denial coverage zepbound. See denial letter on 07/12. documented in this encounter Plan of Treatment Upcoming Encounters Date Type Department Care Team ([facility] st Contact Info) Description 11/15/2024 10:30 AM EDT Telemedicine [facility] MED & PEDS [address] [place] [address] Fabiola Max, RN [address] [place] [address] 11/22/2024 9:00 AM EDT Office Visit [facility] CHC MED & PEDS [address] [place], [place] [phone] Riley Al MD [address] [place], [place] [phone] 12/28/2024 9:30 AM EST Office Visit [facility] OPTOMETRY [address] [place], [place] [phone] Sarai Leong, OD [address] [place] [address] documented as of this encounter Visit Diagnoses Not on filedocumented in this encounter Additional Health Concerns Assessment Noted Time PHQ-9 Depression Total Score: 24 024 11:43 AM EST documented as of this encounter Care Teams Inspector Pawnshop Detail Relationship Specialty Start Date End Date Riley Al MD [address] [place] [address] PCP - General Internal Medicine 04/03/18 documented as of this encounter
--- OUTSIDE RECORDS SUMMARY | 2024-10-19 11:52 | XMS_ITS | Encounter Summary ---
Author Organization [employer] Address 75 [facility] 7 [place] [address] Care Team Providers Care Appraiser Land Name Role Phone Riley Al MD Primary Care Provider [phone] Reason for Visit * Reason Onset Date Comments Med Refill 04/09/2024 Encounter Details Date Type Department Care Team ([facility] st Contact Info) Description 04/09/2024 Refill [facility] CHC MED & PEDS [address] [place] [address] Riley Al MD [address] [place], [place] [phone] Morbid obesity (CMS/HCC) Social History Tobacco Use Types Packs/Day Years [...] [facility] MED & PED[facility] [address] [place] [address] Fabiola Max RN [address] [place] [address] 11/22/2024 9:00 AM EDT Office Visit [facility] MED & PEDS [address] [place] [address] Riley Al MD [address] [place] [address] 12/28/2024 9:30 AM EST Office Visit [facility] OPTOMETRY [address] [place], [place] [phone] Sarai Leong OD [address] [place] [address] documented as of this encounter Visit Diagnoses Diagnosis Morbid obesity (CMS/HCC) Morbid obesity documented in this encounter Additional Health Concerns Assessment Noted Time PHQ-9 Depression Total Score: 24 024 11:43 AM EST documented as of this encounter Care Teams Appraiser Land Relationship Specialty Start Date End Date Riley Al MD [address] [place] [address] PCP - General Internal Medicine 04/03/18 documented as of this encounter
--- OUTSIDE RECORDS SUMMARY | 2024-10-19 11:52 | XMS_ITS | Encounter Summary ---
Author Organization [facility] Address [address] [place] [address] Care Team Providers Care Grievance And Appeals Coordinator Name Role Phone Kwesi Alves MD Primary Care Provider [phone] Kwesi Alves MD Primary Care Provider [phone] Kwesi Alves MD Unavailable [phone] Encounter Details Date Type Department Care Team Description 08/29/2014 Pt. Non Urgent Medic al Question Adult Medicine - [address] [address] Kwesi Alves MD [address] [place] [address] Social History Tobacco Use Types Packs/Day Years Used Date Smoking Tobacco: Former Smokeless Tobacco: Never Comments:quit over 20 yrs ag o Alcohol Use Standard Drinks/Week Comments Yes 0 (1 standard drink = 0.6 oz pur e alcohol) rare Sex Assigned at Date Recorded Not on file documented as of this encounter Progress Notes * Lianet Barragan L.P.N. - 08/30/2014 8:28 AM EDTFrom: Hilda Reyes To: Kwesi Alves MD Sent: 08/29/2014 6:30 PM EDT Subject: Neurology eduar They say they can't see me till nov 11 2014 help me documented in this encounter Plan of Treatment Not on file documented as of this encounter Visit Diagnoses Not on filedocumented in this encounter Care Teams Grievance And Appeals Coordinator Relationship Specialty Start Date End Date Kwesi Alves MD [address] [place] [address] PCP - General 04/08/03 11/28/14 Kwesi Alves MD [address] [place] [address] PCP - General 11/29/14 Kwesi Alves MD [address] [place] [address] 11/29/14 documented as of this encounter
--- OUTSIDE RECORDS SUMMARY | 2024-10-19 11:52 | XMS_ITS | Encounter Summary ---
Author Organization [employer] Address [address] [facility] 7 [place] [address] Care Team Providers Care Operations Vice President Name Role Phone Riley Al MD Primary Care Provider [phone]- [phone] Reason for Visit * Reason Onset Date Comments Prior Authorization 07/26/2024 Encounter Details Date Type Department Care Team ([facility] st Contact Info) Description 07/26/2024 Telephone [facility] MED & PEDS [address] [place] [address] Riley Al MD [address] [place] [address] Prior Authorization Social History Tobacco Use Types [...] encounter Miscellaneous Notes * Telephone Encounter - Lucero Parr - 07/26/2024 9:18 AM EDT TC from Marina from [facility] requesting a PA for Tirzepatide-Weight Management (Zepbound) 10 MG/0.5ML solution auto-injector stating old one in 06/18/24. Contact Marina at [phone] documented in this encounter Plan of Treatment Upcoming Encounters Date Type Department Care Team (Late st Contact Info) Description 11/15/2024 10:30 AM EDT Telemedicine [facility] MED & PEDS [address] [place] [address] Fabiola Max, JOE [address] [place] [address] 11/22/2024 9:00 AM EDT Office Visit [facility] MED & PEDS [address] [place] [address] Riley Al MD [address] [place] [address] 12/28/2024 9:30 AM EST Office Visit [facility] OPTOMETRY [address] [place] [address] Sarai Leong, OD [address] [place] [address] documented as of this encounter Visit Diagnoses Not on filedocumented in this encounter Additional Health Concerns Assessment Noted Time PHQ-9 Depression Total Score: 24 024 11:43 AM EST documented as of this encounter Care Teams Operations Vice President Relationship Specialty Start Date End Date Riley Al MD [address] [place] [address] PCP - General Internal Medicine 04/03/18 documented as of this encounter
--- OUTSIDE RECORDS SUMMARY | 2024-10-19 11:52 | XMS_ITS | Encounter Summary ---
Author Organization [facility] Address PO [facility] [address] [place] [address] Phone Care Team Providers Care Consultant Intern Name Role Phone Riley Al MD Primary Care Provider Encounter Details Date Type Department Care Team (Late st Contact Info) Description 12/27/2022 Documentation Only [facility] [address] [place] [address] Niels Zambrano MD [address] [place] [address] [place] [address] Social History Tobacco Use Types [...] Visit [facility] [address] [place] [address] Niels Zambrano MD [address] [place] [address] [place] [address] documented as of this encounter Visit Diagnoses Not on filedocumented in this encounter Care Teams Consultant Intern Relationship Specialty Start Date End Date Riley Al MD PCP - General 12/29/18 documented as of this encounter
--- OUTSIDE RECORDS SUMMARY | 2024-10-19 11:53 | XMS_ITS | Encounter Summary ---
Author Organization [facility] Address [address] [place] [address] Care Team Providers Care Horseback Riding Instructor Name Role Phone Kwesi Alves MD Primary Care Provider [phone] Kwesi Alves MD Primary Care Provider [phone] Kwesi Alves MD Unavailable [phone] Reason for Visit * Reason Onset Date Comments PT-1 11/15/2014 Encounter Details Date Type Department Care Team Description 11/15/2014 Telephone Adult Medicine - [place] [address] [place] [address] Kwesi Alves MD [address] [place] [address] PT-1 Social History Tobacco Use Types Packs/Day Years Used Date Smoking Tobacco: Former Smokeless Tobacco: Never Comments:quit over 20 yrs ag o Alcohol Use Standard Drinks/Week Comments Yes 0 (1 standard drink = 0.6 oz pur e alcohol) rare Sex Assigned at Date Recorded Not on file documented as of this encounter Miscellaneous Notes * Telephone Encounter - Becky Lucio M.A. - 11/22/2014 5:14 PM EDT Submitted online today [id number] * Telephone Encounter - Erin Pérez - 11/15/2014 4:32 PM EDT Effective 02/21/14 ALL [facility] patients requesting a PT1 form be completed must call this direct line or the 800# on their insurance card. [facility] will no longer be completing these forms, [facility] staff will. Member Services at [facility] will give the patient a dedicated PT1 form telephone #. All other [facility] products proceed as usual. Patients [facility] Pt. demographics and [facility] Ins information verified YES Is this a NEW request or a Renewal? renewal Name of treating facility: [facility] Mailing address: [address] [place] [address] Is the mailing address accurate? YES. If no, update all screens in Registration Has [facility] Insurance coverage been verified? YES Name (first & last) of treating provider Hammad Rosas Reason the patient is seeing the above provider: arthritis Address/[facility] for treating provider [address] [place] [address] Phone # of treating provider [phone] What specialty is this provider? [employer] How often they see them visits per week, visits per month How long will they require these services 52 weeks, 12 Months When is the visit scheduled? 03/09/2015 Medical reason why they are unable to use public transportation: Patient Active Problem List Diagnosis Code ??? UNSPECIFIED ACQUIRED HYPOTHYROIDISM 244.9 ??? fibromyalgia 729.1 ??? hypertension 401.1 ??? Unspecified Anemia 285.9 ??? Osteoarthritis of hip 715.95 ??? Vitamin D Deficiency 268.9 ??? Status following gastric banding surgery for weight loss V45.86 ??? Allergic rhinitis 477.9 ??? 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 NO Will they have an alternative pick-up address? NO Does the patient have a service animal? NO - form in call center PT DOES NOT NEED RELEASE OF INFORMATION SIGNED documented in this encounter Plan of Treatment Not on file documented as of this encounter Visit Diagnoses Not on filedocumented in this encounter Care Teams Horseback Riding Instructor Relationship Specialty Start Date End Date Kwesi Alves MD [address] [place] [address] PCP - General 04/08/03 11/28/14 Kwesi Alves MD [address] [place] [address] PCP - General 11/29/14 Kwesi Alves MD [address] [place] [address] 11/29/14 documented as of this encounter
--- OUTSIDE RECORDS SUMMARY | 2024-10-19 11:53 | XMS_ITS | Encounter Summary ---
Author Organization [facility] Address [address] [place] [address] Care Team Providers Care Portfolio Specialist Name Role Phone Kwesi Alves MD Primary Care Provider [phone] Kwesi Alves MD Primary Care Provider [phone] Kwesi Alves MD Unavailable [phone] Encounter Details Date Type Department Care Team Description 07/24/2006 SCAN Medical Records [address] [place] [address] Abstract, Provider Social History Tobacco Use Types Packs/Day Years Used Date Smoking Tobacco: Never Alcohol Use Standard Drinks/Week Comments Not Asked 0 (1 standard drink = 0.6 oz pur e alcohol) Sex Assigned at Date Recorded Not on file documented as of this encounter Plan of Treatment Not on file documented as of this encounter Procedures Procedure Name Priority Date/Time Associated Diagnosis Comments OUTSIDE VASCULAR STUDY Routine 07/24/2006 documented in this encounter Results * OUTSIDE VASCULAR STUDY (07/24/2006) Provider Default CARDIOLOGY documented in this encounter Visit Diagnoses Not on filedocumented in this encounter Care Teams Portfolio Specialist Relationship Specialty Start Date End Date Kwesi Alves MD [address] [place] [address] PCP - General 04/08/03 11/28/14 Kwesi Alves MD [address] [place] [address] PCP - General 11/29/14 Kwesi Alves MD [address] [place] [address] 11/29/14 documented as of this encounter
--- OUTSIDE RECORDS SUMMARY | 2024-10-19 11:53 | XMS_ITS | Encounter Summary ---
Author Organization [facility] Address [address] [place] [address] Care Team Providers Care Shift Mechanic Name Role Phone Kwesi Alves MD Primary Care Provider [phone] Kwesi Alves MD Unavailable [phone] Encounter Details Date Type Department Care Team Description 12/06/2014 Marketing Project Lead Report Medical Records [address] [place] [address] Social History Tobacco Use Types Packs/Day Years [...] on filedocumented in this encounter Care Teams Shift Mechanic Relationship Specialty Start Date End Date Kwesi Alves MD [address] [place] [address] PCP - General 11/29/14 Kwesi Alves MD [address] [place] [address] 11/29/14 documented as of this encounter
--- OUTSIDE RECORDS SUMMARY | 2024-10-19 11:53 | XMS_ITS | Encounter Summary ---
Author Organization [facility] Address [address] [place] [address] Care Team Providers Care Tax Manager Public Name Role Phone Kwesi Alves MD Primary Care Provider [phone] Kwesi Alves MD Primary Care Provider [phone] Kwesi Alves MD Unavailable [phone] Encounter Details Date Type Department Care Team Description 01/10/2012 [facility] Medical Records [address] [place] [address] Abstract, Provider Social History Tobacco Use Types [...] on filedocumented in this encounter Care Teams Tax Manager Public Relationship Specialty Start Date End Date Kwesi Alves MD [address] [place] [address] PCP - General 04/08/03 11/28/14 Kwesi Alves MD [address] [place] [address] PCP - General 11/29/14 Kwesi Alves MD [address] [place] [address] 11/29/14 documented as of this encounter
--- OUTSIDE RECORDS SUMMARY | 2024-10-19 11:53 | XMS_ITS | Encounter Summary ---
Author Organization [facility] Address [address] [place] [address] Care Team Providers Care Medical Record Clerk Name Role Phone Kwesi Alves MD Primary Care Provider [phone] Kwesi Alves MD Primary Care Provider [phone] Kwesi Alves MD Unavailable [phone] Reason for Visit * Reason Comments E-prescribe Rx Request Encounter Details Date Type Department Care Team Description 03/31/2012 Refill Adult Medicine - [place] [address] [place] [address] Elizabeth Hunt PA-C E-prescribe Rx Request Social History Tobacco Use [...] on filedocumented in this encounter Care Teams Medical Record Clerk Relationship Specialty Start Date End Date Kwesi Alves MD [address] [place] [address] PCP - General 04/08/03 11/28/14 Kwesi Alves MD [address] [place], [place] PCP - General 11/29/14 Kwesi Alves, [address] [place] [address] 11/29/14 documented as of this encounter
--- OUTSIDE RECORDS SUMMARY | 2024-10-19 11:53 | XMS_ITS | Encounter Summary ---
Author Organization [facility] Address [address] [place] [address] Care Team Providers Care Jewelry Bench Worker Name Role Phone Kwesi Alves MD Primary Care Provider [phone] Kwesi Alves MD Primary Care Provider [phone] Kwesi Alves MD Unavailable [phone] Encounter Details Date Type Department Care Team Description 04/28/2012 Release of Information Medical Records [address] [place] [address] Abstract, Provider Social History Tobacco Use Types [...] on filedocumented in this encounter Care Teams Jewelry Bench Worker Relationship Specialty Start Date End Date Kwesi Alves MD [address] [place] [address] PCP - General 04/08/03 11/28/14 Kwesi Alves MD [address] [place], [place] PCP - General 11/29/14 Kwesi Alves MD [address] [place] [address] 11/29/14 documented as of this encounter
--- OUTSIDE RECORDS SUMMARY | 2024-10-19 11:53 | XMS_ITS | Encounter Summary ---
Author Organization [facility] Address [address] [place] [address] Care Team Providers Care Senior Systems Engineer Name Role Phone Kwesi Alves MD Primary Care Provider [phone] Kwesi Alves MD Unavailable [phone] Encounter Details Date Type Department Care Team Description 12/05/2014 Laborer Operator Report Medical Records [address] [place] [address] Billy Lanier MD Social History Tobacco Use Types Packs/Day [...] on filedocumented in this encounter Care Teams Senior Systems Engineer Relationship Specialty Start Date End Date Kwesi Alves MD [address] [place] [address] PCP - General 11/29/14 Kwesi Alves MD [address] [place] [address] 11/29/14 documented as of this encounter
== END 2024-10-19 10:58 | disposition home or self-care (01) ==
LOC: HO.MAMMO 10:57
PROVIDERS: PCP Internal Medicine; Visit Provider Internal Medicine
DX: Z12.31 Encounter for screening mammogram for malignant neoplasm of breast (principal)
CPT/HCPCS: 77063; 77067

== ENCOUNTER → 2024-10-19 11:00 | Outpatient (BNV) | payer OTHER, SELFPAY | PROVIDERS: PCP Internal Medicine; Visit Provider Radiology Body Imaging | DX: Z12.31 Encounter for screening mammogram for malignant neoplasm of breast (principal) | CPT/HCPCS: 77063; 77067 ==

== ENCOUNTER 2024-11-22 09:35 | Outpatient (REF) | payer OTHER, SELFPAY ==
--- OUTSIDE RECORDS SUMMARY | 2024-11-17 16:50 | XMS_ITS | Encounter Summary ---
Author Organization [facility] Address [address] [facility] [address] [place] [address] Phone Care Team Providers Care Foam Molder Name Role Phone Riley Al MD Primary Care Provider Encounter Details Date Type Department Care Team (Late st Contact Info) Description 11/17/2024 4:50 PM EDT Office Visit [facility] [address] [place] [phone] Niels Zambrano MD [address] [place] [address] Stage 3a chronic kidney disease (HCC) (Primary Dx) Social History Tobacco Use Types Packs/Day Years Used Date Smoking Tobacco: Former Cigarettes 0 02/24/1977 - 02/24/1991 Comments:Smoking History Inf o:Every day Comments Unknown Sex and Gender Information Value Date Recorded Sex Assigned at Not on file Legal Sex Female 4:32 PM EST Gender Identity Not on file Sexual Orientation Not on file documented as of this encounter Plan of Treatment Scheduled Orders Name Type Priority Associated Diagnoses Orde r Schedule Basic Metabolic Panel Lab Routine Stage 3a chronic kidney disease (HCC) Expected: 11/17/2024, Expires: 12/17/2025 Urine Albumin / Creatinine Ratio Lab Routine Stage 3a chronic kidney disease (HCC) Expected: 11/17/2024, Expires: 12/17/2025 documented as of this encounter Visit Diagnoses Diagnosis Stage 3a chronic kidney disease (HCC)- Primary documented in this encounter Care Teams Foam Molder Relationship Specialty Start Date End Date Riley Al MD PCP - General 12/29/18 documented as of this encounter
--- OUTSIDE RECORDS SUMMARY | 2024-11-22 09:00 | XMS_ITS | Encounter Summary ---
Author Organization [employer] Address [address] [facility] 7 [place] [address] Care Team Providers Care Chief Arson Division Name Role Phone Riley Al MD Primary Care Provider [phone]- [phone] Reason for Visit * Reason Comments Hypertension Hyperlipidemia Encounter Details Date Type Department Care Team (Latest Contact Info) Description 11/22/2024 9:00 AM EDT Office Visit [facility] MED & PEDS [address] [place] [address] Riley Al MD [address] [place] [address] Hypercholesterolemia (Primary Dx); Essential hypertension; Acquired hypothyroidism; Morbid obesity (CMS/HCC) Social History Tobacco Use Types Packs/Day Years Used Date Smoking Tobacco: Former Cigarettes Passive Smoke Exposure: Never Smokeless Tobacco: Never Alcohol Use Standard Drinks/Week Comments Never 0 (1 standard drink = 0.6 oz pur e alcohol) Depression Answer Date Recorded Patient Health Questionnaire-9 Score 5 11/22/2024 Patient Health Questionnaire-9 Score 5 11/22/2024 Last PHQ-9: Questionnaire Data Not on file 0 11/22/2024 Housing Stability Answer Date Recorded What is [...] Answer Date Recorded Patient Health Questionnaire-2 Score 0 11/22/2024 Internet Access Answer Date Recorded Internet Access Q1 Yes 02/19/2024 Internet Access Q2 Not on file 02/19/2024 Comments Unknown Sex and Gender Information Value Date Recorded Sex Assigned at Female 12/24/2021 10:35 AM EDT Legal Sex Female 10:35 AM EDT Gender Identity Female 12/24/2021 10:35 AM EDT Sexual Orientation Straight 12/24/2021 10 :35 AM EDT documented as of this encounter Last Filed Vital Signs Vital Sign Reading Time Taken Comments Blood Pressure 129/80 11/22/2024 8:59 AM EDT Pulse 60 11/22/2024 8:59 AM EDT Temperature - - Respiratory Rate 20 11/22/2024 8:59 AM EDT Oxygen Saturation 93% 11/22/2024 8:59 AM EDT Inhaled Oxygen Concentration - - Weight 101 kg (223 lb) 11/22/2024 8:59 AM EDT Height 160 cm (5' 3 ) 11/22/2024 8:59 AM EDT Body Mass Index 39.5 11/22/2024 8:59 AM EDT documented in this encounter Functional Status * Over the past 2 weeks, how often have you been bothered by any of the following problems? Question Answer Date of Assessment Author Patient Health Questionnaire-2 Score 0 10/26 9:35 AM EDT Shirin Tinsley MA * Little interest or pleasure in doing things Answer Date of Assessment Author Not at all 11/22/2024 9:35 AM EDT Benji Tinsley MA * Feeling down, depressed, or hopeless Answer Date of Assessment Author Not at all 11/22/2024 9:35 AM EDT Benji Tinsley MA * Trouble falling or staying asleep, or sleeping too much Answer Date of Assessment Author More than half the days 11/22/2024 9:35 AM EDT Shirin Cervantes MA * Feeling tired or having little energy Answer Date of Assessment Author More than half the days 11/22/2024 9:35 AM MORENAT Shirin Cervantes MA * Poor appetite or overeating Answer Date of Assessment Author Several days 11/22/2024 9:35 AM EDT Benji Tinsley MA * Feeling bad about yourself - or that you are a failure or have let yourself or your family down Answer Date of Assessment Author Not at all 11/22/2024 9:35 AM Benji Alvarez MA * Trouble concentrating on things, such as reading the newspaper or watching television Answer Date of Assessment Author Not at all 11/22/2024 9:35 AM Benji Alvarez MA * Moving or speaking so slowly that other people could have noticed? Or the opposite - being so fidgety or restless that you have been moving around a lot more than usual. Answer Date of Assessment Author Not at all 11/22/2024 9:35 AM EDT Benji Tinsley MA * Thoughts that you would be better off or hurting yourself in some way Answer Date of Assessment Author Not at all 11/22/2024 9:35 AM Benji Alvarez MA * Patient Health Questionnaire-9 Score Answer Date of Assessment Author 5 11/22/2024 9:35 AM Benji Alvarez MA * How difficult have these problems made it for you to do your work, take care of things at home, or get along with other people? Answer Date of Assessment Author Somewhat difficult 11/22/2024 9:35 AM Shirin Alvarez MA documented as of this encounter Plan of Treatment Upcoming Encounters Date Type Department Care Team (Late st Contact Info) Description 12/28/2024 9:30 AM EST Office Visit [facility] [address] [place] [address] Sarai Leong, OD [address] [place] [address] 01/19/2025 10:30 AM EST Clinical Support [facility] MED & PEDS [address] [place] [address] Fabiola Max, RN [address] [place] [address] Scheduled Orders Name Type Priority Associated Diagnoses Orde r Schedule Basic Metabolic Panel Lab Routine Hypercholesterolemia Essential hypertension Acquired hypothyroidism Expected: 11/22/2024 (Approximate), Expires: 11/22/2025 HIV-1/2 Antigen and Antibodies, Fourth Generation, with Reflexes Lab Routine Hypercholesterolemia Essential hypertension Acquired hypothyroidism Expected: 11/22/2024 (Approximate), Expires: 11/22/2025 TSH W/Reflex to FT4 Lab Routine Hypercholesterolemia Essential hypertension Acquired hypothyroidism Expected: 11/22/2024 (Approximate), Expires: 11/22/2025 Lipid Panel, Standard Lab Routine Hypercholesterolemia Essential hypertension Acquired hypothyroidism Expected: 11/22/2024 (Approximate), Expires: 11/22/2025 documented as of this encounter Visit Diagnoses Diagnosis Hypercholesterolemia- Primary Pure hypercholesterolemia Essential hypertension Unspecified essential hypertension Acquired hypothyroidism Unspecified hypothyroidism Morbid obesity (CMS/HCC) (HCC) Morbid obesity documented in this encounter Additional Health Concerns Assessment Noted Time PHQ-9 Depression Total Score: 5 11/23/19 25 9:35 AM EDT documented as of this encounter Care Teams Chief Arson Division Relationship Specialty Start Date End Date Riley Al MD [address] [place] [address] PCP - General Internal Medicine 04/03/18 documented as of this encounter
--- OUTSIDE RECORDS SUMMARY | 2024-11-22 10:27 | XMS_ITS | Encounter Summary ---
Author Organization [employer] Address [address] [facility] [address] [place] [address] Care Team Providers Care Logger All Round Name Role Phone Riley Al MD Primary Care Provider [phone]- [phone] Reason for Visit * Reason Comments Med Refill Encounter Details Date Type Department Care Team (Late Contact Info) Description 10/17/2022 Refill [facility] CH[facility] MED & PEDS [address] [place], [place] [phone] Riley Al MD [address] [place] [address] Essential hypertension; Chronic pain syndrome; Acute left-sided [...] Department Care Team (Late Contact Info) Description 12/28/2024 9:30 AM EST Office Visit [facility] OPTOMET[facility] [address] [place] [address] Sarai Leong, OD [address] [place] [address] 01/19/2025 10:30 AM EST Clinical Support [facility] MED & PEDS [address] [place] [address] Fabiola Max, RN [address] [place] [address] documented as of this encounter Visit Diagnoses Diagnosis Essential hypertension Unspecified essential hypertension Chronic pain syndrome Acute left-sided low back pain with left-sided sciatica documented in this encounter Additional Health Concerns Assessment Noted Time PHQ-9 Depression Total Score: 9 04/16/19 23 10:03 AM EST documented as of this encounter Care Teams Logger All Round Relationship Specialty Start Date End Date Riley Al MD [address] [place] [address] PCP - General Internal Medicine 04/03/18 documented as of this encounter
--- OUTSIDE RECORDS SUMMARY | 2024-11-22 10:27 | XMS_ITS | Encounter Summary ---
Author Organization [employer] Address [address] [facility] 7 [place] [address] Care Team Providers Care Sample Collector Name Role Phone Riley Al MD Primary Care Provider [phone]- [phone] Reason for Visit * Reason Onset Date Comments Chart Prep 11/19/2024 Encounter Details Date Type Department Care Team ([facility] [place] st Contact Info) Description 11/19/2024 Telephone [facility] CHC MED & PEDS [address] [place] [address] Riley Al MD [address] [place] [address] Chart Prep Social History Tobacco Use Types Packs/Day Years [...] encounter Miscellaneous Notes * Telephone Encounter - Bernadine Zuniga MA - 11/19/2024 10:19 AM EDT Chart Prep Labs: done Images: done Referrals: complete Vaccines due: Covid, Flu, PCV20, Tdap, RSV, and Zoster Screenings: STI screening Overdue care gaps: PHQ-9, Oral health screening, Disability screen, and Tobacco documented in this encounter Plan of Treatment Upcoming Encounters Date Type Department Care Team ([facility] [place] st Contact Info) Description 12/28/2024 9:30 AM EST Office Visit [facility] OPTOMETRY [address] [place] [address] Sarai Leong, OD [address] [place] [address] 01/19/2025 10:30 AM EST Clinical Support [facility] CHC MED & PEDS [address] [place] [address] Fabiola Max, RN [address] [place] [address] documented as of this encounter Visit Diagnoses Not on filedocumented in this encounter Additional Health Concerns Assessment Noted Time PHQ-9 Depression Total Score: 24 024 11:43 AM EST documented as of this encounter Care Teams Sample Collector Relationship Specialty Start Date End Date Riley Al MD [address] [place] [address] PCP - General Internal Medicine 04/03/18 documented as of this encounter
--- OUTSIDE RECORDS SUMMARY | 2024-11-22 10:27 | XMS_ITS | Encounter Summary ---
Author Organization [employer] Address 75 [facility] 7t [place] [address] Care Team Providers Care Educational Fundraising Director Name Role Phone Riley Al MD Primary Care Provider +1- [phone] Reason for Visit * Reason Comments Med Refill Encounter Details Date Type Department Care Team ([facility] Contact Info) Description 03/28/2022 Refill [facility] CHC MED & PEDS 505 [place], [place] [phone] Riley Al MD 505 [place] [address] Chronic pain syndrome; Dizziness Social History Tobacco [...] Upcoming Encounters Date Type Department Care Team ([facility] Contact Info) Description 12/28/2024 9:30 AM EST Office Visit [facility] OPTOMETRY [address] [place] [address] Sarai Leong, OD 267 [place] [address] 01/19/2025 10:30 AM EST Clinical Support [facility] CHC MED & PEDS [address] [place], [place] [phone] Fabiola Max, RN 505 [place], [place] [phone] documented as of this encounter Visit Diagnoses Diagnosis Chronic pain syndrome Dizziness Dizziness and giddiness documented in this encounter Care Teams Educational Fundraising Director Relationship Specialty Start Date End Date Riley Al MD 505 [place] [address] PCP - General Internal Medicine 04/03/18 documented as of this encounter
--- OUTSIDE RECORDS SUMMARY | 2024-11-22 10:27 | XMS_ITS | Encounter Summary ---
Author Organization [employer] Address 75 [facility] 7 [place] [address] Care Team Providers Care Cash Room Clerk Name Role Phone Riley Al MD Primary Care Provider +1- [phone] Reason for Visit * Reason Onset Date Comments Prior Authorization 05/19/2023 Encounter Details Date Type Department Care Team (Late st Contact Info) Description 05/19/2023 Telephone [facility] MEDICINE [address] [place] [address] Riley Al MD 505 [place] [address] Prior Authorization Social History Tobacco Use Types [...] Description 12/28/2024 9:30 AM EST Office Visit [facility] OPTOMETRY [address] [place] [address] TarSarai bishop, OD [address] [place] [address] 01/19/2025 10:30 AM EST Clinical Support [facility] CHC MED & PEDS 505 [place] [address] Fabiola Max, JOE 505 [place] [address] documented as of this encounter Visit Diagnoses Not on filedocumented in this encounter Additional Health Concerns Assessment Noted Time PHQ-9 Depression Total Score: 9 04/16/19 23 10:03 AM EST documented as of this encounter Care Teams Cash Room Clerk Relationship Specialty Start Date End Date Riley Al MD [address] [place] [address] PCP - General Internal Medicine 04/03/18 documented as of this encounter
--- OUTSIDE RECORDS SUMMARY | 2024-11-22 10:27 | XMS_ITS | Encounter Summary ---
Author Organization [employer] Address 75 [facility] 7 [place] [address] Care Team Providers Care Fulfillment Coordinator Name Role Phone Riley Al MD Primary Care Provider +1- [phone] Reason for Visit * Reason Onset Date Comments Med Refill 11/18/2024 Encounter Details Date Type Department Care Team ([facility] st Contact Info) Description 11/18/2024 Refill [facility] CHC MED & PEDS 505 [place] [address] Riley Al MD 505 [place], [place] [phone] Other chronic gastritis without hemorrhage Social History Tobacco Use Types Packs/Day Years [...] encounter Miscellaneous Notes * Telephone Encounter - Radha Franco LPN - 11/18/2024 3:23 PM EDT Last seen 08/19/24. documented in this encounter Plan of Treatment Upcoming Encounters Date Type Department Care Team (Late st Contact Info) Description 12/28/2024 9:30 AM EST Office Visit [facility] OPTOMETRY 267 [place] [address] Sarai Leong, OD 267 [place] [address] 01/19/2025 10:30 AM EST Clinical Support [facility] CHC MED & PEDS 505 [place] [address] Fabiola Max, JOE 505 [place] [address] documented as of this encounter Visit Diagnoses Diagnosis Other chronic gastritis without hemorrhage documented in this encounter Additional Health Concerns Assessment Noted Time PHQ-9 Depression Total Score: 24 024 11:43 AM EST documented as of this encounter Care Teams Fulfillment Coordinator Relationship Specialty Start Date End Date Riley Al MD [address] [place] [address] PCP - General Internal Medicine 04/03/18 documented as of this encounter
--- OUTSIDE RECORDS SUMMARY | 2024-11-22 10:27 | XMS_ITS | Encounter Summary ---
Author Organization [employer] Address 75 [facility] 7t [place] [address] Care Team Providers Care Neonatal Intensive Care Unit Nurse Name Role Phone Riley Al MD Primary Care Provider +1- [phone] Encounter Details Date Type Department Care Team ([facility] Contact Info) Description 10/22/2022 Orders Only [facility] CHC MED & PEDS 505 [place], [place] [phone] Riley Al MD 505 [place] [address] Idiopathic osteoarthritis Social History Tobacco Use Types [...] 9:30 AM EST Office Visit [facility] OPTOMETRY [address] [place], [place] [phone] Tarka, Sarai, OD [address] [place] [address] 01/19/2025 10:30 AM EST Clinical Support [facility] CHC MED & PEDS [address] [place] [address] Fabiola Max, RN [address] [place], [place] documented as of this encounter Procedures Procedure [...] AM EDT Narrative 11/01/2022 3:41 PM EDT [address] [address] Ultrasound Report Signed Patient: Hilda Reyes MR#: [id number] : 1960 Acct:[id number] Age/Sex: 62 / F ADM Date: 10/31/22 Loc: HO.US Attending Dr: Domitila Lewis PA-C Ordering Physician: Domitila Lewis PA-C Date of Service: 10/31/22 Procedure(s): US abdomen comp w elastography Accession Number(s): [id number] cc: Riley Al MD; Domitila Lewis PA-C [...] in OV> 11/01/22 1537 DD/ 0816 TD/TT: Forge Operator: CHEO Procedure Note Donotuseinterpreter, Image - 11/01/2022 [place] [address] Ultrasound Report Signed Patient: Chris Reyes#: [id number] : 2Acct:[id number] Age/Sex: 62 / FADM Date: 10/31/22 Loc: HO.US Attending Dr: Domitila Lewis PA-C Ordering Physician: Domitila Lewis PA-C Date of Service: 10/31/22 Procedure(s): US abdomen comp w elastography Accession Number(s): [id number] cc: Riley Al MD; Domitila Lewis PA-C [...] in OV> 11/01/22 1537 DD/ 0816 TD/TT: Forge Operator: CHEO us [facility] External Provider IMG US PROCEDURES Final Result * XR Chest 2 Views (10/31/2022 8:01 AM EDT) Anatomical Region Laterality Modality Chest Radiographic Vi ging 10/31/2022 8:01 AM EDT Narrative 11/01/2022 1:33 AM EDT [address] [address] XRay Report Signed Patient: Hilda Reyes MR#: [id number] : 1960 Acct:[id number] Age/Sex: 62 / F ADM Date: 10/31/22 Loc: HO.US Attending Dr: Domitila Lewis PA-C Ordering Physician: Domitila Lewis PA-C Date of Service: 10/31/22 Procedure(s): XR chest 2V Accession Number(s): [id number] cc: Riley Al MD; Domitila Lewis PA-C [...] signed by Marcelo Eduardo in OV> 11/01/22 012 DD/ 0 TD/TT: Forge Operator: Procedure Note Donotuseinterpreter, Image - 11/01/[address] [address] XRay Report Signed Patient: Chris Reyes#: [id number] : 1960cct:[id number] Age/Sex: 62 / FADM Date: 10/31/22 Loc: [facility] Attending Dr: Domitila Lewis PA-C Ordering Physician: Domitila Lewis PA-C Date of Service: 10/31/22 Procedure(s): XR chest 2V Accession Number(s): [id number] cc: Riley Al MD; Domitila Lewis PA-C [...] signed by Marcelo Eduardo in OV> 11/01/22 012 DD/ 0 TD/TT: Forge Operator: [facility] External Provider IMG XR PROCEDURES Edited Result - Final * Hematoxylin and Eosin Stain (10/22/2022 10:19 AM EDT) 10/22/2022 10:1 9 AM EDT 10/22/2022 11:11 AM EDT [facility] - 10/23/2022 2:08 PM EDT ----- ------- Name: Hilda Reyes Age/Sex: 62/F : 1960 Unit#: [id number] Attend Dr: Gold Langston MD Re10/22/22 Status: [facility] Location: [facility] Disch: ----- ------- SPEC : [id number] RECD: 10/22/22-1110 STATUS: OPAL GIBBS NUM: [id number] MAIN: 10/22/22-1019 [facility] DR: Gold Langston MD ENTERED: 10/22/22-1117 SP [...] Name: Hilda Reyes Age/Sex: 62/F : 1960 [facility]erg[facility] With [facility]#: [id number] Unit#: [id number] Attend Dr: Gold Langston MD Re10/22/22 Status: [facility] Location: [facility] Disch: ----- ------- SPEC : [id number] RECD: 10/22/22-1110 STATUS: OPAL GIBBS NUM: [id number] MAIN: 10/22/22-1019 [facility] DR: Gold Langston MD ENTERED: 10/22/22-1117 SP [...] and C. Copies To: Riley Al MD [address] [place] [address] Gold Langston MD [address] [place] [address] [place] [address] ----- ------- Signed (signature on file) Marixa Young MD 10/23/22 8933 ----- ------- END OF REPORT us [facility] External Provider LAB BLO OD ORDERABLES Final Result [facility] [address] [place] [phone] documented in this encounter Visit Diagnoses Diagnosis Idiopathic osteoarthritis Osteoarthrosis, unspecified whether generalized or localized, unspecified site documented in this encounter Additional Health Concerns Assessment Noted Time PHQ-9 Depression Total Score: 9 04/16/19 23 10:03 AM EST documented as of this encounter Care Teams Neonatal Intensive Care Unit Nurse Relationship Specialty Start Date End Date Riley Al MD [address] [place] [address] PCP - General Internal Medicine 04/03/18 documented as of this encounter
--- OUTSIDE RECORDS SUMMARY | 2024-11-22 10:27 | XMS_ITS | Encounter Summary ---
Author Organization [employer] Address 75 [facility] 7t [place] [address] Care Team Providers Care Belt Builder Helper Name Role Phone Riley Al MD Primary Care Provider +1- [phone] Reason for Visit * Reason Onset Date Comments Medication Question 01/20/2023 new script 01/20/2023 Encounter Details Date Type Department Care Team ([facility] st Contact Info) Description 01/20/2023 Telephone [facility] MEDICINE [address] [place] [address] Riley Al MD 505 [place] [address] Medication Question; new script Social History Tobacco [...] Description 12/28/2024 9:30 AM EST Office Visit [facility] OPTOMETRY [address] [place] [address] Sarai Leong, OD 267 [place] [address] 01/19/2025 10:30 AM EST Clinical Support [facility] CHC MED & PEDS [address] [place] [address] Fabiola Max, RN 505 [place] [address] documented as of this encounter Visit Diagnoses Not on filedocumented in this encounter Additional Health Concerns Assessment Noted Time PHQ-9 Depression Total Score: 9 04/16/19 23 10:03 AM EST documented as of this encounter Care Teams Belt Builder Helper Relationship Specialty Start Date End Date Riley Al MD [address] [place] [address] PCP - General Internal Medicine 04/03/18 documented as of this encounter
--- OUTSIDE RECORDS SUMMARY | 2024-11-22 10:27 | XMS_ITS | Encounter Summary ---
Author Organization [employer] Address 75 [facility] 7 [place] [address] Care Team Providers Care Nuclear Operator Name Role Phone Riley Al MD Primary Care Provider +1- [phone] Reason for Visit * Reason Onset Date Comments Med Refill 01/20/2024 Encounter Details Date Type Department Care Team ([facility] st Contact Info) Description 01/20/[address] [facility] CHC MED & PEDS 505 [place] [address] Riley Al MD 505 [place], [place] [phone] Acute left-sided low back pain with left-sided [...] Description 12/28/2024 9:30 AM EST Office Visit [facility] OPTOMETRY [address] [place] [address] Sarai Leong, OD 267 [place] [address] 01/19/2025 10:30 AM EST Clinical Support [facility] CHC MED & PEDS 505 [place], [place] [phone] Fabiola Max, JOE 505 [place], [place] [phone] documented as of this encounter Visit Diagnoses Diagnosis Acute left-sided low back pain with left-sided sciatica Chronic pain syndrome documented in this encounter Additional Health Concerns Assessment Noted Time PHQ-9 Depression Total Score: 9 04/16/19 23 10:03 AM EST documented as of this encounter Care Teams Nuclear Operator Relationship Specialty Start Date End Date Riley Al MD 505 [place], [place] [phone] PCP - General Internal Medicine 04/03/18 documented as of this encounter
--- OUTSIDE RECORDS SUMMARY | 2024-11-22 10:27 | XMS_ITS | Encounter Summary ---
Author Organization [employer] Address 75 [facility] 7 [place] [address] Care Team Providers Care Prune Washer Name Role Phone Riley Al MD Primary Care Provider +1- [phone] Reason for Visit * Reason Onset Date Comments Medication Question 11/03/2023 Encounter Details Date Type Department Care Team (Late st Contact Info) Description 11/03/2023 Telephone [facility] MEDICINE [address] [place] [address] Riley Al MD 505 [place] [address] Medication Question Social History Tobacco Use Types [...] would like it to be sent to [facility] documented in this encounter Plan of Treatment Upcoming Encounters Date Type Department Care Team (Late st Contact Info) Description 12/28/2024 9:30 AM EST Office Visit [facility] OPTOMETRY [address] [place] [address] Sarai Leong, OD 267 [place] [address] 01/19/2025 10:30 AM EST Clinical Support [facility] MED & PEDS 505 [place] [address] Fabiola Max, JOE 505 [place] [address] documented as of this encounter Visit Diagnoses Diagnosis Morbid obesity (CMS/HCC) (HCC) Morbid obesity documented in this encounter Additional Health Concerns Assessment Noted Time PHQ-9 Depression Total Score: 9 04/16/19 23 10:03 AM EST documented as of this encounter Care Teams Prune Washer Relationship Specialty Start Date End Date Riley Al MD [address] [place] [address] PCP - General Internal Medicine 04/03/18 documented as of this encounter
--- OUTSIDE RECORDS SUMMARY | 2024-11-22 10:27 | XMS_ITS | Encounter Summary ---
Author Organization [employer] Address [address] [facility] [address] 7t [place] [address] Care Team Providers Care Chart Snatcher Name Role Phone Riley Al MD Primary Care Provider +1 [phone] Encounter Details Date Type Department Care Team ([facility] Contact Info) Description 10/31/2023 Orders Only [facility] CHC MED & PEDS 505 [place], [place] [phone] Riley Al MD 505 [place] [address] Morbid obesity (CMS/HCC) (Primary Dx); COVID-19 Social [...] 9:30 AM EST Office Visit [facility] OPTOMETRY [address] [place] [address] Sarai Leong, OD [address] [place] [address] 01/19/2025 10:30 AM EST Clinical Support [facility] CHC MED & PEDS 505 [place] [address] Fabiola Max, JOE 505 [place] [address] documented as of this encounter Visit Diagnoses Diagnosis Morbid obesity (CMS/HCC) (HCC)- Primary Morbid obesity COVID-19 documented in this encounter Additional Health Concerns Assessment Noted Time PHQ-9 Depression Total Score: 9 04/16/19 23 10:03 AM EST documented as of this encounter Care Teams Chart Snatcher Relationship Specialty Start Date End Date Riley Al MD 505 [place] [address] PCP - General Internal Medicine 04/03/18 documented as of this encounter
--- OUTSIDE RECORDS SUMMARY | 2024-11-22 10:27 | XMS_ITS | Encounter Summary ---
Author Organization [employer] Address 75 [facility] 7t [place] [address] Care Team Providers Care Bike Mechanic Name Role Phone Riley Al MD Primary Care Provider +1- [phone] Reason for Visit * Reason Comments Med Refill Encounter Details Date Type Department Care Team ([facility] st Contact Info) Description 03/27/2022 Refill [facility] CHC MED & PEDS 505 [place], [place] [phone] Riley Al MD 505 [place] [address] Social History Tobacco Use Types Packs/Day Years [...] AM EST Call received from Neena with [facility] for med rec. Reviewed pt medications with Neena. No further questions from her at this time. documented in this encounter Plan of Treatment Upcoming Encounters Date Type Department Care Team (Late st Contact Info) Description 12/28/2024 9:30 AM EST Office Visit [facility] OPTOMETRY [address] [place], [place] [phone] Sarai Leong, OD 267 [place] [address] 01/19/2025 10:30 AM EST Clinical Support [facility] CHC MED & PEDS 505 [place], [place] [phone] Fabiola Max RN 505 [place], [place] [phone] documented as of this encounter Visit Diagnoses Not on filedocumented in this encounter Care Teams Bike Mechanic Relationship Specialty Start Date End Date Riley Al MD 505 [place], [place] [phone] PCP - General Internal Medicine 04/03/18 documented as of this encounter
--- OUTSIDE RECORDS SUMMARY | 2024-11-22 10:27 | XMS_ITS | Clinical Summary ---
Author Organization [employer] [facility] Address [address] [place] [address] Care Team Providers Care Communication Engineer Name Role Phone Sartia Alves MD Primary Care Prov ider Allergies [...] Fall 2015 SLE (systemic lupus erythema tosus) ([facility] V24, [facility] V28) 06/26/2006 Hypertension 09/25/2005 Hypothyroidism 02/06/2005 Myalgia 02/06/2005 Overview (03/29/2024): Onset Surgical History Surgery Date Site/Laterality Comments HERNIA REPAIR PROCEDURE: REPAIR UMBILICAL HERNIA TONSILLECTOMY PROCEDURE: HISTORICAL TONSILLECTOMY OTHER SURGICAL HISTORY 1985 PROCEDURE: HISTORICAL TOTAL HYSTERECTOMY W/O BSO; COMMENT: Had cervical cancer. one ovary remains STOMACH SURGERY 2010 PROCEDURE: AR UNLISTED PROCEDURE STOMACH; COMMENT: gastric sleeve OTHER SURGICAL HISTORY 11/07 Right PROCEDURE: AR ARTHRP ACETBLR/PROX FEM PROSTC AGRFT/ALGRFT; COMMENT: had previous surg for inderjit dislocation OTHER SURGICAL HISTORY 12/08 PROCEDURE: AR ARTHRODESIS POSTERIOR INTERBODY 1 NTRSPC LUMBAR; COMMENT: L 2-4 Medical History Medical History Date Comments Morbid obesity ([facility] V24, [facility] V28) 02/06/2005 DX:Morbid obesity (HCC) Essential hypertension, [...] hazards to health(V15.89); COMMENT: CERVICAL Cervical cancer ([facility]/HCC V24 , [facility] V28) DX:Cervical cancer (HCC); CO MMENT: 1985. [...] * Annual BMP Blood Test (07/27/2014) [facility] Annual BMP Blood Test abstracted Historical Provider HEALTH MAINTENANCE Final Result from Last 3 Months or Most Recently Relevant to Health Maintenance Care Teams Communication Engineer Relationship Specialty Start Date End Date Sarita Alves MD PCP - General 04/08/03
--- OUTSIDE RECORDS SUMMARY | 2024-11-22 10:27 | XMS_ITS | Encounter Summary ---
Author Organization [employer] Address 75 [facility] 7 [place] [address] Care Team Providers Care Pulp Grinder Name Role Phone Riley Al MD Primary Care Provider +1- [phone] Reason for Visit * Reason Onset Date Comments Prior Authorization 10/24/2023 Encounter Details Date Type Department Care Team (Late st Contact Info) Description 10/24/2023 Telephone [facility] MEDICINE [address] [place] [address] Riley Al MD [address] [place] [address] Prior Authorization Social History Tobacco Use Types [...] for cough syrup. * Telephone Encounter - Dayo Zuniga - 10/24/2023 12:58 PM EDT Tc from [facility] requesting status on PA for rosuvastatin (Crestor) 20 MG tablet sent on 10/20. Please contact [facility] at [phone]. documented in this encounter Plan of Treatment Upcoming Encounters Date Type Department Care Team (Late st Contact Info) Description 12/28/2024 9:30 AM EST Office Visit [facility] OPTOMETRY [address] [place] [address] Sarai Leong, OD 267 [place] [address] 01/19/2025 10:30 AM EST Clinical Support [facility] MED & PEDS 505 [place] [address] Fabiola Max, JOE 505 [place] [address] documented as of this encounter Visit Diagnoses Not on filedocumented in this encounter Additional Health Concerns Assessment Noted Time PHQ-9 Depression Total Score: 9 04/16/19 23 10:03 AM EST documented as of this encounter Care Teams Pulp Grinder Relationship Specialty Start Date End Date Riley Al MD [address] [place] [address] PCP - General Internal Medicine 04/03/18 documented as of this encounter
--- OUTSIDE RECORDS SUMMARY | 2024-11-22 10:27 | XMS_ITS | Encounter Summary ---
Author Organization [employer] Address [address] [facility] [address] 7t [place] [address] Care Team Providers Care House Worker General Name Role Phone Riley Al MD Primary Care Provider +1 [phone] Encounter Details Date Type Department Care Team ([facility] st Contact Info) Description 07/01/2023 Orders Only [facility] CHC MED & PEDS [address] [place] [address] Provider, MD Jaret Social History Tobacco Use [...] t he electric, gas, oil or water [employer] threatened to shut off services in your [...] Description 12/28/2024 9:30 AM EST Office Visit [facility] OPTOMETRY [address] [place], [place] [phone] Sarai Leong OD [address] [place] [address] 01/19/2025 10:30 AM EST Clinical Support [facility] CHC MED & PEDS 505 [place], [place] [phone] Fabiola Max, JOE 505 [place], [place] [phone] documented as of this encounter Procedures Procedure [...] documented as of this encounter Care Teams House Worker General Relationship Specialty Start Date End Date Riley Al MD 505 [place], [place] [phone] PCP - General Internal Medicine 04/03/18 documented as of this encounter
--- OUTSIDE RECORDS SUMMARY | 2024-11-22 10:27 | XMS_ITS | Encounter Summary ---
Author Organization [employer] Address 75 [facility] 7t [place] [address] Care Team Providers Care Clean Out Driller Name Role Phone Riley Al MD Primary Care Provider +1- [phone] Encounter Details Date Type Department Care Team ([facility] Contact Info) Description 11/18/2022 Orders Only [facility] CHC MED & PEDS 505 [place], [place] [phone] Riley Al MD 505 [place] [address] Chronic pain syndrome (Primary Dx) Social History [...] Upcoming Encounters Date Type Department Care Team ([facility] Contact Info) Description 12/28/2024 9:30 AM EST Office Visit [facility] OPTOMETRY [address] [place] [address] Sarai Leong, OD [address] [place] [address] 01/19/2025 10:30 AM EST Clinical Support [facility] CHC MED & PEDS [address] [place] [address] Fabiola Max, RN 505 [place], [place] [phone] documented as of this encounter Visit Diagnoses Diagnosis Chronic pain syndrome- Primary documented in this encounter Additional Health Concerns Assessment Noted Time PHQ-9 Depression Total Score: 9 04/16/19 23 10:03 AM EST documented as of this encounter Care Teams Clean Out Driller Relationship Specialty Start Date End Date Riley Al MD 505 [place] [address] PCP - General Internal Medicine 04/03/18 documented as of this encounter
--- OUTSIDE RECORDS SUMMARY | 2024-11-22 10:27 | XMS_ITS | Encounter Summary ---
Author Organization [employer] Address [address] [facility] [address] [place] [address] Care Team Providers Care Buoy Tender Name Role Phone Riley Al MD Primary Care Provider +1 [phone] Reason for Visit * Reason Onset Date Comments Med Refill 08/13/2023 Encounter Details Date Type Department Care Team ([facility] st Contact Info) Description 08/13/2023 Refill [facility] [address] [place] [address] Gretchen Shrestha MD 505 [place] [address] Acute left-sided low back pain with left-sided [...] Description 12/28/2024 9:30 AM EST Office Visit [facility] [address] [place] [address] Sarai Leong, OD [address] [place] [address] 01/19/2025 10:30 AM EST Clinical Support [facility] [address] [place] [address] Fabiola Max, RN 505 [place] [address] documented as of this encounter Visit Diagnoses Diagnosis Acute left-sided low back pain with left-sided sciatica Chronic pain syndrome documented in this encounter Additional Health Concerns Assessment Noted Time PHQ-9 Depression Total Score: 9 04/16/19 23 10:03 AM EST documented as of this encounter Care Teams Buoy Tender Relationship Specialty Start Date End Date Riley Al MD [address] [place] [address] PCP - General Internal Medicine 04/03/18 documented as of this encounter
--- OUTSIDE RECORDS SUMMARY | 2024-11-22 10:27 | XMS_ITS | Encounter Summary ---
Author Organization [employer] Address [address] 7[address] [place] [address] Care Team Providers Care Director Of Casino Marketing Name Role Phone Riley Al MD Primary Care Provider [phone] [phone] Encounter Details Date Type Department Care Team ([facility] Contact Info) Description 01/14/2023 Orders Only [facility] MED & PEDS [address] [place], [place] [phone] Riley Al MD 505 [place] [address] Acute left-sided low back pain with left-sided [...] Description 12/28/2024 9:30 AM EST Office Visit [facility] OPT[facility] [address] [place] [address] Sarai Leong, OD [address] [place] [address] 01/19/2025 10:30 AM EST Clinical Support [facility] MED [facility] PEDS [address] [place], [place] [phone] Fabiola Max, JOE [address] [place] [address] documented as of this encounter Visit Diagnoses Diagnosis Acute left-sided low back pain with left-sided sciatica Chronic pain syndrome documented in this encounter Additional Health Concerns Assessment Noted Time PHQ-9 Depression Total Score: 9 04/16/19 23 10:03 AM EST documented as of this encounter Care Teams Director Of Casino Marketing Relationship Specialty Start Date End Date Riley Al MD [address] [place] [address] PCP - General Internal Medicine 04/03/18 documented as of this encounter
--- OUTSIDE RECORDS SUMMARY | 2024-11-22 10:27 | XMS_ITS | Encounter Summary ---
Author Organization [employer] Address [address] 7[address] [place] [address] Care Team Providers Care Machine Woodworking Sander Name Role Phone Riley Al MD Primary Care Provider [phone]- [phone] Encounter Details Date Type Department Care Team (Late Contact Info) Description 03/01/2022 Orders Only [facility] MED [facility] PEDS [address] [place], [place] [phone] Gretchen Shrestha MD 505 [place] [address] Abnormal TSH (Primary Dx); Leukocytosis, unspecified type [...] Description 12/28/2024 9:30 AM EST Office Visit [facility] OPT[facility] [address] [place] [address] Sarai Leong, OD [address] [place] [address] 01/19/2025 10:30 AM EST Clinical Support [facility] MED [facility] [address] [place] [address] Fabiola Max, RN 505 [place] [address] Scheduled Orders Name Type Priority Associated Diagnoses [...] FT4 4.23 0.40 - 4.50 mIU/L [facility] 03/07/2022 9:04 AM EST 03/07/2022 9:05 AM EST us Gretchen Shrestha MD LAB BLOOD ORDERABLES Final Re sult [facility] [address] [facility], [place] [address] [facility] [address] [facility], ([address]) [place] [address] documented in this encounter Visit Diagnoses Diagnosis Abnormal TSH- Primary Leukocytosis, unspecified type documented in this encounter Care Teams Machine Woodworking Sander Relationship Specialty Start Date End Date Riley Al MD 505 [place] [address] PCP - General Internal Medicine 04/03/18 documented as of this encounter
--- OUTSIDE RECORDS SUMMARY | 2024-11-22 10:27 | XMS_ITS | Encounter Summary ---
Author Organization [employer] Address [address] [facility] [address] [facility] [address] 7t [place] [address] Care Team Providers Care Blue Split Trimmer Name Role Phone Riley Al MD Primary Care Provider +1 [phone] Encounter Details Date Type Department Care Team (Latest Contact Info) Description 11/22/2024 Travel Social History Tobacco Use Types Packs/Day Years [...] t he electric, gas, oil or water sarvaMAIL threatened to shut off services in your [...] AM EDT documented as of this encounter Functional Status * Over the [...] 9:35 AM EDT Shirin Cervantes [place] * Poor appetite or overeating Answer Date of Assessment Author Several days 11/22/2024 9:35 AM EDT Benji Tinsley MA * Feeling bad about yourself - or that you are a failure or have let yourself or your family down Answer Date of Assessment Author Not at all 11/22/2024 9:35 AM EDBenji Perry MA * Trouble concentrating on things, such [...] Not at all 11/22/2024 9:35 AM EDT Bneji Tinsley MA * Thoughts that you would be better off or hurting yourself in some way Answer Date of Assessment Author Not at all 11/22/2024 9:35 AM EDT Benji Tinsley MA * Patient Health Questionnaire-9 Score Answer Date of Assessment Author 5 11/22/2024 9:35 AM EDT Benji Tinsley MA * How difficult have these problems made it for you to do your work, take care of things at home, or get along with other people? Answer Date of Assessment Author Somewhat difficult 11/22/2024 9:35 AM EDT Shirin Tinsley MA documented as of this encounter Plan of Treatment Upcoming Encounters Date Type Department Care Team (Late st Contact Info) Description 12/28/2024 9:30 AM EST Office Visit [facility] OPTOMET[facility] [address] [place] [address] Sarai Leong, OD 267 [place] [address] 01/19/2025 10:30 AM EST Clinical Support [facility] MED & PEDS 505 [place] [address] Fabiola Max, RN 505 [place] [address] documented as of this encounter Visit Diagnoses Not on filedocumented in this encounter Additional Health Concerns Assessment Noted Time PHQ-9 Depression Total Score: 5 11/23/19 25 9:35 AM EDT documented as of this encounter Care Teams Blue Split Trimmer Relationship Specialty Start Date End Date Riley Al MD 505 [place] [address] PCP - General Internal Medicine 04/03/18 documented as of this encounter
--- OUTSIDE RECORDS SUMMARY | 2024-11-22 10:27 | XMS_ITS | Encounter Summary ---
Author Organization [employer] Address [address] [facility] [address] 7[address] [place] [address] Care Team Providers Care Oysterman Name Role Phone Riley Al MD Primary Care Provider [phone]- [phone] Encounter Details Date Type Department Care Team ([facility] st Contact Info) Description 06/12/2022 Orders Only [facility] CH[facility] MED & PEDS [address] [place], [place] [phone] Riley Al MD 505 [place] [address] Stage 3a chronic kidney disease (CMS/HCC) (Primary [...] Description 12/28/2024 9:30 AM EST Office Visit [facility] OPTOMETRY [address] [place] [address] Sarai Leong, OD [address] [place] [address] 01/19/2025 10:30 AM EST Clinical Support [facility] CHC MED & PEDS [address] [place] [address] Fabiola Max RN [address] [place], [place] Scheduled Orders Name Type Priority Associated Diagnoses [...] AM EDT Narrative 07/09/2022 12:41 PM EDT [facility] [address] [place] [address] Mammography Report Signed Patient: Hilda Reyes MR#: [id number] : 1960 Acct:[id number] Age/Sex: 62 / F ADM Date: 07/08/22 Loc: HO.MAMMO Attending Dr: Riley Al MD Ordering Physician: Riley Al MD Results: 1 Negative Date of Service: 07/08/22 Follow Up: 1 Year From Orig inal Mammogram Procedure(s): MM tomosynthesis screening BI Accession Number(s): [id number] cc: Riley Al MD EXAMINATION: MM SCREENING [...] in OV> 07/09/22 1238 DD/ 0945 TD/TT: System Architect: LAWRENCE Procedure Note Donotuseinterpreter, Image - 08/22/2022 [facility] [address] [place] [address] Mammography Report Signed Patient: Chris Reyes#: [id number] : 2Acct:[id number] Age/Sex: 62 / FADM Date: 07/08/22 Loc: HO.MAMMO Attending Dr: Riley Al MD Ordering Physician: Riley Al MDResults: 1 Negative Date of Service: 07/08/22Follow Up: 1 Year From Orig inal Mammogram Procedure(s): MM tomosynthesis screening BI Accession Number(s): [id number] cc: Riley Al MD EXAMINATION: MM SCREENING [...] in OV> 07/09/22 1238 DD/ 0945 TD/TT: System Architect: LAWRENCE [facility] External Provider IMG BI PROCEDURES Final Result documented in this encounter Visit Diagnoses Diagnosis Stage 3a chronic kidney disease (CMS/HCC) (HCC)- Primary documented in this encounter Additional Health Concerns Assessment Noted Time PHQ-9 Depression Total Score: 9 04/16/19 23 10:03 AM EST documented as of this encounter Care Teams Oysterman Relationship Specialty Start Date End Date Riley Al MD [address] [place] [address] PCP - General Internal Medicine 04/03/18 documented as of this encounter
--- OUTSIDE RECORDS SUMMARY | 2024-11-22 10:27 | XMS_ITS | Encounter Summary ---
Author Organization [employer] Address [address] [facility] 7 [place] [address] Care Team Providers Care Program Support Specialist Name Role Phone Riley Al MD Primary Care Provider [phone]- [phone] Reason for Visit * Reason Onset Date Comments Med Refill 11/12/2022 Encounter Details Date Type Department Care Team ([facility] st Contact Info) Description 11/12/[address] [facility] CHC MED & PEDS [address] [place] [address] Riley Al MD [address] [place], [place] [phone] Essential hypertension; Chronic pain syndrome; Acute left-sided [...] 12/28/2024 9:30 AM EST Office Visit [facility] OPTOMETRY [address] [place] [address] TarSarai bishop, OD [address] [place] [address] 01/19/2025 10:30 AM EST Clinical Support [facility] CHC MED & PEDS [address] [place] [address] Fabiola Max, RN [address] [place] [address] documented as of this encounter Visit Diagnoses Diagnosis Essential hypertension Unspecified essential hypertension Chronic pain syndrome Acute left-sided low back pain with left-sided sciatica documented in this encounter Additional Health Concerns Assessment Noted Time PHQ-9 Depression Total Score: 9 04/16/19 23 10:03 AM EST documented as of this encounter Care Teams Program Support Specialist Relationship Specialty Start Date End Date Riley Al MD [address] [place] [address] PCP - General Internal Medicine 04/03/18 documented as of this encounter
--- OUTSIDE RECORDS SUMMARY | 2024-11-22 10:27 | XMS_ITS | Encounter Summary ---
Author Organization [employer] Address [address] [facility] 7t [place] [address] Care Team Providers Care Social Sciences Instructor Name Role Phone Riley Al MD Primary Care Provider [phone]- [phone] Reason for Visit * Reason Comments Med Refill Encounter Details Date Type Department Care Team (Late st Contact Info) Description 03/18/2022 Refill [facility] [address] [place] [address] Riley Al MD 505 [place] [address] Chronic pain syndrome; Dizziness Social History Tobacco [...] ([facility] st Contact Info) Description 12/28/2024 9:30 AM EST Office Visit [facility] OPTOMETRY [address] [place], [place] [phone] Sarai Leong, OD [address] [place] [address] 01/19/2025 10:30 AM EST Clinical Support [facility] MED & PEDS 505 [place], [place] [phone] Fabiola Max, RN 505 [place], [place] [phone] documented as of this encounter Visit Diagnoses Diagnosis Chronic pain syndrome Dizziness Dizziness and giddiness documented in this encounter Care Teams Social Sciences Instructor Relationship Specialty Start Date End Date Riley Al MD 505 [place], [place] [phone] PCP - General Internal Medicine 04/03/18 documented as of this encounter
--- OUTSIDE RECORDS SUMMARY | 2024-11-22 10:27 | XMS_ITS | Encounter Summary ---
Author Organization [employer] Address [address] [facility] 7t [place] [address] Care Team Providers Care Manager Green Name Role Phone Riley Al MD Primary Care Provider +1 [phone] Reason for Visit * Reason Comments Med Refill Encounter Details Date Type Department Care Team ([facility] st Contact Info) Description 09/30/2023 Refill [facility] [address] [place] [address] Riley Al MD 505 [place] [address] Acute left-sided low back pain with left-sided [...] 9:30 AM EST Office Visit [facility] [address] [place] [address] Sarai Leong, OD [address] [place] [address] 01/19/2025 10:30 AM EST Clinical Support [facility] 505 [place], [place] [phone] Fabiola Max, JOE 505 [place], [place] [phone] documented as of this encounter Visit Diagnoses Diagnosis Acute left-sided low back pain with left-sided sciatica Chronic pain syndrome documented in this encounter Additional Health Concerns Assessment Noted Time PHQ-9 Depression Total Score: 9 04/16/19 23 10:03 AM EST documented as of this encounter Care Teams Manager Green Relationship Specialty Start Date End Date Riley Al MD 505 [place] [address] PCP - General Internal Medicine 04/03/18 documented as of this encounter
--- OUTSIDE RECORDS SUMMARY | 2024-11-22 10:27 | XMS_ITS | Clinical Summary ---
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 Name Role Phone Riley Al MD Primary Care Provider [phone] Allergies Active Allergy Reactions Criticality Noted Date Comments Galt Oil 05/20/2022 Aspirin Hives 02/13/2023 Food 04/28/2019 Nuts, Oranges, Strawberries Latex Hives 04/28/2019 Lisinopril Cough 04/22/2006 cough cough Naproxen Unknown,Hives 10/29/2013 Lamoille Oil 05/20/2022 Other 06/04/2022 Penicillin G 05/20/2022 Penicillin G Procaine Wheezing 02/06/2005 Penicillins Hives High 04/03/2018 Other reaction(s): Other (see comments) Salicylates Hives 02/06/2005 Other reaction(s): Hives / Skin Rash, Other (see comments) [place] (Diagnostic) 06/04/2022 [place] Extract 05/20/2022 Zolpidem Other,Hallucination s,Hives 12/14/2012 Zoster Vaccine Recombinant, Adjuvanted 09/04/2021 Other reaction(s): Difficulty breathing, Hives / Skin Rash Medications Nystop [id number] UNIT/GM powder 022 Active Misc. Devices (Pulse Oximeter For Finger) miscIndications: COVID-19 To use every 4 hours. Call the office if O2Sat < 90% 1 each 024 Active furosemide (Lasix) 20 MG tablet TAKE 1 TABLET BY MOUTH EVERY MORNING 30 tablet 5 024 Active traZODone (Desyrel) 100 MG tabletIndication s:Primary insomnia TAKE 1 TABLET BY MOUTH AT BEDTIME^1R4 30 tablet 11 024 Active rosuvastatin (Crestor) 20 MG tabletIndication s:Hypercholester olemia TAKE 1 TABLET BY MOUTH AT BEDTIME^1R4 30 tablet 11 024 Active levothyroxine (Synthroid, Levoxyl) 112 MCG tabletIndication s:Acquired hypothyroidism TAKE 1 TABLET BY MOUTH ONCE A DAY ^1R1 30 tablet 11 024 Active Blood Pressure kitIndications:E ssential hypertension To check the BP 2 times a week. 1 kit 025 Active magnesium oxide (Mag-Ox) 250 MG tabletIndication s:Hypomagnesemia TAKE 1 TABLET BY MOUTH ONCE A DAY 30 tablet 5 025 Active Tirzepatide-Weig ht Management (Zepbound) [...] BY MOUTH ONCE A DAY^1R1 30 capsule 5 025 Active diphenhydrAMINE (Banophen) 25 MG tabletIndication s:Primary insomnia TAKE 2 TABLETS BY MOUTH AT BEDTIME FOR INSOMNIA^2R4 60 tablet 5 025 Active famotidine (Pepcid) 20 MG tabletIndication s:Other chronic gastritis without hemorrhage TAKE 1 TABLET BY MOUTH TWICE A DAY 60 tablet 11 025 Active acetaminophen (Arthritis Pain Relief) 650 MG ER tabletIndication s:Idiopathic osteoarthritis TAKE ONE TABLET EVERY 8 HOURS NEEDED FOR MILD PAIN 30 tablet 1 07/08/2 025 Active naloxone (Narcan) 4 mg/0.1 mL nasal spray Administer 1 spray (4 mg) into affected nostril(s) if needed for opioid reversal. May repeat every 2-3 minutes if needed, alternating nostrils, until medical assistance becomes available. 2 each 2025 Active lidocaine-priloc chase (Emla) 2.5-2.5 % creamIndications :Idiopathic osteoarthritis Apply topically 2 times daily. 30 g Active metaxalone (Skelaxin) 800 MG tabletIndication s:Acute left-sided low back pain with left-sided sciatica,Chronic pain syndrome,Acute left-sided low back pain with left-sided sciatica TAKE 1 TABLET BY MOUTH THREE TIMES A DAY 60 tablet Active acetaminophen-co deine (Tylenol w/ Codeine #3) 300-30 MG tabletIndication s:Acute left-sided low back pain with left-sided sciatica,Chronic pain syndrome Take 1 tablet by mouth every 12 (twelve) hours if needed for severe pain for up to 28 days. Do not start before November 22, 2024. 56 tablet 2024 Active spironolactone (Aldactone) 25 MG tablet TAKE 1 TABLET BY MOUTH EVERY MORNING 30 tablet Active esomeprazole (NexIUM) [address] capsuleIndicatio ns:Other chronic gastritis without hemorrhage TAKE 1 CAPSULE BY MOUTH EVERY MORNING 30 capsule Active losartan (Cozaar) 25 MG tabletIndication s:Essential hypertension Take 1 tablet (25 mg) by mouth Once per day. 30 tablet 2025 Active Tirzepatide-Weig ht Management (Zepbound) 10 MG/0.5ML solution auto-injectorInd ications:Morbid obesity (CMS/HCC) (HCC) Inject 0.5 mL (10 mg) under the skin 1 (one) time per week. INJECT ONE PEN (=10 MG) SUBCUTANEOUSLY ONCE A WEEK 2 mL Active dexAMETHasone (Decadron) 4 MG tabletIndication s:Acute left-sided low back pain with left-sided sciatica Take 1 tablet (4 mg) by mouth in the morning for 3 days. 3 tablet 023 2024 Discontinued(T herapy completed) Nirmatrelvir&Rit onavir 150/100 (Paxlovid, 150/100,) 10 x 150 MG & 10 x 100MG tablet therapy packIndications: COVID-19 Take 1 Dose by mouth in the morning and at bedtime. GFR: 59 ml/min. Please deliver to the curbside. 30 each 024 2024 Discontinued(T herapy completed) tiZANidine (Zanaflex) 4 MG tablet Take 1 tablet (4 mg) by mouth every 6 (six) hours if needed for muscle spasms for up to 10 days. 30 tablet 024 2024 Discontinued meclizine (Antivert) 25 MG tabletIndication s:Dizziness TAKE ONE TABLET BY MOUTH THREE TIMES A DAY NEEDED FOR DIZZINESS (MORNING, NOON, AND BEDTIME) (VIAL) 30 tablet 024 2024 Discontinued(T herapy completed) triamcinolone (Kenalog) 0.1 % ointment Apply topically 2 times daily. 30 g 024 2024 Discontinued(T herapy completed) capsaicin (Zostrix) 0.025 % creamIndications :Idiopathic osteoarthritis Apply topically 2 times daily. 56.6 g 3 024 2024 Discontinued(T herapy completed) Tirzepatide-Weig ht Management (Zepbound) 5 MG/0.5ML solutionIndicati ons:Morbid obesity (CMS/HCC) (HCC) Inject 5 mg under the skin every 7 (seven) days. 2 mL 1 025 2024 Discontinued(T herapy completed) spironolactone (Aldactone) 25 MG tablet TAKE 1 TABLET BY MOUTH EVERY MORNING 30 tablet 5 025 2024 Discontinued(R eorder (will not trigger notification to Pharmacy)) esomeprazole (NexIUM) [address] capsuleIndicatio ns:Other chronic gastritis without hemorrhage TAKE 1 CAPSULE BY MOUTH EVERY MORNING^1R1 30 capsule 5 025 2024 Discontinued(R eorder (will not trigger notification to Pharmacy)) losartan (Cozaar) 50 MG tabletIndication s:Essential hypertension Take 1 tablet (50 mg) by mouth Once per day. 30 tablet 11 025 2024 Discontinued(T herapy completed) metaxalone (Skelaxin) 800 MG tabletIndication s:Acute left-sided low back pain with left-sided sciatica,Chronic pain syndrome,Acute left-sided low back pain with left-sided sciatica TAKE 1 TABLET BY MOUTH THREE TIMES A DAY 60 tablet 1 025 2024 Discontinued(R eorder (will not trigger notification to Pharmacy)) acetaminophen-co deine (Tylenol w/ Codeine #3) 300-30 MG tabletIndication s:Acute left-sided low back pain with left-sided sciatica,Chronic pain syndrome Take 1 tablet by mouth every 12 (twelve) hours if needed for severe pain for up to 28 days. 56 tablet 025 2024 Discontinued(R eorder (will not trigger notification to Pharmacy)) Tirzepatide-Weig ht Management (Zepbound) 10 MG/0.5ML solution auto-injectorInd ications:Morbid obesity (CMS/HCC) (HCC) Inject 0.5 mL (10 mg) under the skin 1 (one) time per week. INJECT ONE PEN (=10 MG) SUBCUTANEOUSLY ONCE A WEEK 2 mL 2 025 2024 Discontinued(R eorder (will not trigger notification to Pharmacy)) Active Problems Problem Noted Date Diagnosed Date Long-term current use of opiate analgesic 2024 Chronic pain 02/28/2022 Gastritis 02/28/2022 Essential hypertension 02/28/2022 Hypothyroidism 02/28/2022 Idiopathic osteoarthritis 02/28/2022 Morbid obesity (CMS/HCC) 02/28/2022 Recurrent falls 02/28/2022 Dizziness 02/28/2022 Assessment & Plan (02/28/2022 5:27 PM EST): Triggered episodic dizziness with changes in position. Negative orthostatic vitals, given body habitus of patient and chronic poor mobility it would be difficult to preform Tashia Reynoso, will hold off sending head imaging [...] cards evaluation Stage 3a chronic kidney disease ([facility]/HCC) 2019 Overview (02/28/2022): Update for Diagnosis Load Hypercholesterolemia 04/06/2018 Microcytic anemia 04/06/2018 Encounters Date Type Department Care Team Description 11/22/2024 9:00 AM EDT Office Visit [facility] [address] [place] [address] Riley Al MD Hypercholesterolemia (Primary Dx); Essential hypertension; Acquired hypothyroidism; Morbid obesity ([facility]/HCC) 11/22/2024 Travel 11/19/2024 Telephone [facility] [address] [place] [address] Riley Al MD Chart Prep 11/18/2024 Refill [facility] [address] [place] [address] Riley Al MD Other chronic gastritis without hemorrhage 11/15/2024 10:30 AM EDT Telemedicine [facility] [address] [place] [address] Fabiola Max, last turner pain syndrome 11/15/2024 Refill [facility] [address] [place] [address] 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, 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 left-sided low back pain with left-sided sciatica; Chronic pain syndrome 11/15/2024 Travel 11/01/2024 Refill [facility] [address] [place] [address] Riley Al MD Acute left-sided low back pain with left-sided sciatica; Chronic pain syndrome; Acute left-sided low back pain with left-sided sciatica 10/22/2024 Refill [facility] [address] [place] [address] Riley Al MD Morbid obesity ([facility]) 10/22/2024 Refill [facility] [address] [place], [place] [phone] Riley Al MD Acute left-sided low back pain with left-sided sciatica; Chronic pain syndrome 10/19/2024 Orders Only [facility] [address] [place], [place] [phone] Riley Al MD 10/06/2024 Refill [facility] [address] [place] [address] Riley Al MD Acute left-sided low back pain with left-sided sciatica; Chronic pain syndrome; Acute left-sided low back pain with left-sided sciatica 09/24/2024 Refill [facility] [address] [place] [address] Riley Al MD Acute left-sided low back pain with left-sided sciatica; Chronic pain syndrome 09/13/2024 Refill [facility] [address] [place] [address] Andrés Ghotra MD Acute left-sided low back pain with left-sided sciatica; Chronic pain syndrome; Acute left-sided low back pain with left-sided sciatica 09/08/2024 Telephone [facility] [address] [place] [address] Riley Al MD Med Refill 09/06/2024 2:30 PM EDT Telemedicine [facility] [address] [place] [address] Fabiola Max RN Chronic pain syndrome 09/06/2024 Refill [facility] [address] [place] [address] Fabiola Max RN Idiopathic osteoarthritis 09/06/2024 Travel 08/30/2024 Refill [facility] [address] [place] [address] Riley Al MD Idiopathic osteoarthritis; Acute left-sided low back pain with left-sided sciatica; Chronic pain syndrome; Acute left-sided low back pain with left-sided sciatica from Last 3 Months Immunizations Immunization Administration [...] Pulse 60 11/22/2024 8:59 AM EDT Temperature 36.8 C (98.3 F) 08/19/2024 9:41 AM EDT Respiratory Rate 20 11/22/2024 8:59 AM EDT Oxygen Saturation 93% 11/22/2024 8:59 AM EDT Inhaled Oxygen Concentration - - Weight 101 kg (223 lb) 11/22/2024 8:59 AM EDT Height 160 cm (5' 3 ) 11/22/2024 8:59 AM EDT Body Mass Index 39.5 11/22/2024 8:59 AM EDT Plan of Treatment Upcoming Encounters Date Type Department Care Team ([facility] st Contact Info) Description 12/28/2024 9:30 AM EST Office Visit [facility] OPT[facility] [address] [place] [address] Sarai Leong, OD [address] [place] [address] 01/19/2025 10:30 AM EST Clinical Support [facility] P[facility]S [address] [place] [address] Fabiola Max, RN [address] [place] [address] Health Maintenance Due Date Last Done Comments CT Colonography 1960 Colonoscopy 1960 FIT 1960 HIV Screening 1960 Sigmoidoscopy 1960 FOBT 01/02/2024 01/01/2023 Pap Smear 03/22/2024 03/22/2021 COVID-19 Vaccine ( season) 2024 04/30/2021, 07/07/2020, 05/31/2020 Alcohol/Substance Use Screening 02/18/2025 02/19/2024 SDOH Screening 02/18/2025 02/19/2024 Influenza Vaccine (#1) 2025 Postp oned from 10/25/2024 (Patient Refused) DTaP/Tdap/Td Vaccines (1 - Tdap) 11/22/2025 Postponed from 1981 (Patient Refused) Depression Screening 11/22/2025 11/22/2024, 11/23/19 25 Disability Screening 11/22/2025 11/22/2024 Pneumococcal Vaccine: 50+ Years (1 of 1 - PCV) 11/22/2025 Postponed from 02/15/2012 (Patient Refused) Tobacco Screening 11/22/2025 11/22/2024 Zoster Vaccines (2 of 2) 11/22/2025 07/02/2021 Pos tponed from 08/27/2021 (Patient Refused) Colorectal Cancer Screening 01/01/2026 FIT DNA/Cologuard 01/01/2026 01/01/2023 Cervical Cancer Screening 03/22/2026 HPV/Cotest 03/22/2026 03/22/2021 Mammogram 10/19/2026 10/19/2024, 09/24, 07/08/2022, Additional history exists Lipid Panel 05/19/2029 05/19/2024, 08/21/2021 RSV Patients and Patients Aged 60 years or older (1 - 1-dose 75+ series) 2037 Hepatitis C Screening Completed 08/21/2021 HIB Vaccines [...] Comments BI MAMMOGRAM SCREENING TOMOSYNTHESIS BILATERAL Routine 10/19/2024 11:00 AM EDT LIPID PANEL, STANDARD Routine 05/19/2024 2:54 PM EDT Essential hypertension Hypercholesterolemia Acquired hypothyroidism LAB COLOGUARD COLON CANCER SCREEN Routine 01/01/2023 9:15 AM EST Screening for colon cancer ZZZ HISTORICAL HEPATITIS C AB W/REFL TO HCV RNA, QN, PCR Routine 08/21/2021 9:58 AM EDT THINPREP IMAGING PAP AND HPV MRNA E6/E7 WITH REFLEX TO HPV 16,18/45 Routine 03/22/2021 2:08 PM EST from Last 3 Months or Most Recently Relevant to Health Maintenance Results * BI Mammogram Screening Tomosynthesis Bilateral (10/19/2024 11:00 AM EDT) Anatomical Region Laterality Modality Breast Bilateral Mammography 10/19/2024 11:0 0 AM EDT Narrative 10/23/2024 10:36 AM EDT [facility] [address] [place] [address] Mammography Report Signed Patient: Hilda Reyes MR#: [id number] : 1960 Acct:[id number] Age/Sex: 64 / F ADM Date: 10/19/24 Loc: HO.MAMMO Attending Dr: Riley Al MD Ordering Physician: Riley Al MD Results: 1 Negative Date of Service: 10/19/24 Follow Up: 1 Year From [facility] Mammogram Procedure(s): MM tomosynthesis screening BI Accession Number(s): [id number] cc: Riley Al MD EXAMINATION: MM SCREENING DIGITAL BREAST TOMOSYNTHESIS, BILATERAL CLINICAL INFORMATION: Screening. Asymptomatic. COMPARISON: Comparison made to multiple prior, most recent October 10, 2023, and most remote February 15, 2019. TECHNIQUE: Digital breast tomosynthesis is performed in both the craniocaudal and mediolateral oblique views along with computer-aided detection (CAD). Additional views were taken if needed. Best possible images according to technologist's notes. FINDINGS: BREAST COMPOSITION: There are scattered areas of fibroglandular density (ACR BI-RADS breast composition Category b). BILATERAL BREASTS: No significant masses, suspicious calcifications or other abnormalities are seen in either breast. MM/MM tomosynthesis screening BI IMPRESSION: BILATERAL BREASTS: Negative, no mammographic evidence of malignancy. Normal interval follow-up is recommended in 12 months. ASSESSMENT: BI-RADS 1 - Negative RECOMMENDATION: Routine annual mammography screening. FOLLOW-UP: 1 year F/U This examination should not preclude the clinical evaluation of a suspicious palpable abnormality. This patient's information was entered into a reminder system with a target due date for their next mammogram. Electronically signed by: Mark Warren MD 10/23/2024 10:33 AM EDT Dictated By: Mark Warren MD Signed By: <Electronically signed by Mark Wraren MD in OV> 10/23/24 1033 DD/ 1100 TD/TT: 10/19/24 1134 Linen Clerk: Procedure Note Donotuseinterpreter, Image - 10/23/2024 [facility] [address] [place] [address] Mammography Report Signed Patient: Chris Reyes#: [id number] : 2Acct:[id number] Age/Sex: 64 / FADM Date: 10/19/24 Loc: HO.MAMMO Attending Dr: Riley Al MD Ordering Physician: Riley Al MDResults: 1 Negative Date of Service: 10/19/24Follow Up: 1 Year From Orig inal Mammogram Procedure(s): MM tomosynthesis screening BI Accession Number(s): [id number] cc: Riley Al MD EXAMINATION: MM SCREENING DIGITAL BREAST TOMOSYNTHESIS, BILATERAL CLINICAL INFORMATION: Screening. Asymptomatic. COMPARISON: Comparison made to multiple prior, most recent October 10, 2023, and most remote February 15, 2019. TECHNIQUE: Digital breast tomosynthesis is performed in both the craniocaudal and mediolateral oblique views along with computer-aided detection (CAD). Additional views were taken if needed. Best possible images according to technologist's notes. FINDINGS: BREAST COMPOSITION: There are scattered areas of fibroglandular density (ACR BI-RADS breast composition Category b). BILATERAL BREASTS: No significant masses, suspicious calcifications or other abnormalities are seen in either breast. MM/MM tomosynthesis screening BI IMPRESSION: BILATERAL BREASTS: Negative, no mammographic evidence of malignancy. Normal interval follow-up is recommended in 12 months. ASSESSMENT: BI-RADS 1 - Negative RECOMMENDATION: Routine annual mammography screening. FOLLOW-UP: 1 year F/U This examination should not preclude the clinical evaluation of a suspicious palpable abnormality. This patient's information was entered into a reminder system with a target due date for their next mammogram. Electronically signed by: Mark Warren MD 10/23/2024 10:33 AM EDT Workstation: [employer] Dictated By: Mark Warren MD Signed By: <Electronically signed by Mark Warren MD in OV> 10/23/24 1033 DD/ 1100 TD/TT: 10/19/24 1134 Linen Clerk: us Riley Al MD IMG BI PROCEDURES Final Res ult * Lipid Panel, Standard (05/19/2024 2:54 PM EDT) Triglycerides 113 <150 mg/dL [facility] Comment:Desirable Triglyceri de: less than 150 mg/dLBorderline High Triglyceride 150-199 mg/dLHigh Triglyceride: 200-499 mg/dLVery High Triglyceride: greater than or equal to 5OO mg/dL Cholesterol 147 <200 mg/dL [facility] Comment:Desirable Cholestero l: less than 200 mg/dLBorderline High Cholesterol: 200-239 mg/dLHigh Cholesterol: greater than 239 mg/dL LDL Cholesterol Calculated 56 <100 mg/dL [facility] Comment:Desirable LDL: less than 100 mg/dLNear Optimal/Above Optimal LDL: 110- 129 mg/dLBorderline High LDL: 130-159 mg/dLHigh LDL: 160-189 mg/dLVery High LDL: greater than or equal to 190 mg/dL HDL Cholesterol 69 >40 mg/dL [facility] Comment:Desirable HDL: great er than 40 mg/dL Note: This HDL assay may give artificially low results in patients with liver disease. Blood Venous blood specimen / Unknown 05/19/2024 2:54 PM EDT 05/19/2024 6:24 PM EDT us Riley Al MD LAB BLOOD ORDERABLES Final Result [facility] [address] [place] [address] [phone] * (ABNORMAL) Cologuard?? colon cancer screening (01/01/2023 9:15 AM EST) Cologuard Result Positive( A) Negative 01/10/2023 10:18 AM EST [employer] [facility] (CLIA #:[id number]) Comment: POSITIVE TEST RESULT. A positive Cologuard [...] screened with both Cologuard and colonoscopy. (Asya Harmon et al, N Engl J Med 2014;370(14):5760-8095.) Cologuard may produce a false negative or false positive result (no colorectal cancer or precancerous polyp present at colonoscopy follow up). A negative Cologuard test result does not guarantee the absence of CRC or advanced adenoma (pre-cancer). The current Cologuard screening interval is every 3 years. ([place] Cancer Society and U.S. Multi-Society Task Force). Cologuard performance data in a 10,000 patient pivotal study using colonoscopy as the reference method can be accessed at the following location: www.Celles/results. Additional description of the Cologuard test process, warnings and precautions can be found at www.[employer].Brandfolder. Stool specimen (specimen) 01/01/2023 9:15 AM EST 01/03/2023 2:28 PM EST us Riley Al MD LAB MOLECULAR DIAGNOSTICS O RDERABLES Final Result [facility] (CLIA #:[id number]) [place] [address], * HEPATITIS C AB W/REFL TO HCV RNA, QN, PCR (08/21/2021 9:58 AM EDT) HEPATITIS C ANTIBODY NON-REACT [facility] NON-REACT [facility] INDEX 0.08 <1.00 [facility] Comment: HCV antibody was non-reactive. There is no laboratory evidence of HCV infection. In most cases, no further action is required. However, if recent HCV exposure is suspected, a test for HCV RNA (test code 51778) is suggested. For additional information please refer to http://education.[employer].Brandfolder/faq/ATV28z4 (This link is being provided for informational/ educational purposes only.) 08/21/2021 9:58 AM EDT us Riley Al MD HISTORICAL/NON ORDERABLE LA BS Final Result [facility] [address] [place] [address], * THINPREP TIS PAP AND HPV mRNA E6/E7 WITH REFLEX TO HPV 16,18/45 (03/22/2021 2:08 PM EST) Clinical Information: None given [facility] COMMENT SEE COMMENT [facility] [...] has been evaluated with computer assisted technology. 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 The analytical performance characteristics of this assay have been determined by [facility]. The modifications have not been cleared or approved by the FDA. This assay has been validated pursuant to the CLIA regulations and is used for clinical purposes. For additional information, please refer to http://education.Raiseworks/faq/QWI540z3 (This link if provided for information/ educational purposes only.) Interpretation/Re sult: Negative for intraepithelial lesion or malignancy. [facility] LMP: NONE GIVEN [facility] Prev. BX: NONE GIVEN [facility] Prev. PAP: NONE GIVEN [facility] SOURCE: None given [facility] Statement Of Adequacy: SEE COMMENT [facility] Comment: Satisfactory for evaluation. Endocervical/transformation zone component absent. Age and/or menstrual status not provided 03/22/2021 2:08 PM EST us Mirela Flanagan MD LAB PATHOLOGY ORDERABLES Aracelis napier Result [facility] [address] from Last 3 Months or Most Recently Relevant to Health Maintenance [place] [address] [place] [address] STANDARD [facility] < 65 Care Teams Stringer Up Soldering Machine Relationship Specialty Start Date End Date Riley Al MD [address] [place] [id number] PCP - General Internal Medicine 04/03/18
--- OUTSIDE RECORDS SUMMARY | 2024-11-22 10:28 | XMS_ITS | Encounter Summary ---
Author Organization [employer] Address [address] [place] [address] 7 [place] [address] Care Team Providers Care Poiser Name Role Phone Riley Al MD Primary Care Provider +1 [phone] Reason for Referral * Medications - Closed Specialty Diagnoses / Procedures Referred By Contac t Referred To Contact Diagnoses Chronic pain syndrome Riley Al MD [address] [place] [address] Phone: tel: fax: Referral ID Status Reason Start Date Expiration Date Visits Re quested Visits Authorized [id number] Closed 06/23/2024 06/23/2025 1 1 Encounter Details Date Type Department Care Team ([facility] Contact Info) Description 06/21/2024 Orders Only [facility] MED & PEDS [address] [place] [address] Riley Al MD [address] [place] [address] Morbid obesity (CMS/HCC) (Primary Dx); Chronic pain [...] Description 12/28/2024 9:30 AM EST Office Visit [facility] OPTOMETRY [address] [place] [address] Sarai Leong, OD [address] [place] [address] 01/19/2025 10:30 AM EST Clinical Support [facility] MED [facility] PEDS [address] [place] [address] Fabiola Max, RN 505 [place] [address] documented as of this encounter Visit Diagnoses Diagnosis Morbid obesity (CMS/HCC) (HCC)- Primary Morbid obesity Chronic pain syndrome documented in this encounter Additional Health Concerns Assessment Noted Time PHQ-9 Depression Total Score: 24 024 11:43 AM EST documented as of this encounter Care Teams Poiser Relationship Specialty Start Date End Date Riley Al MD [address] [place] [address] PCP - General Internal Medicine 04/03/18 documented as of this encounter
--- OUTSIDE RECORDS SUMMARY | 2024-11-22 10:28 | XMS_ITS | Encounter Summary ---
Author Organization [facility] Address [address] [place] [address] Phone Care Team Providers Care Machine Candle Molder Name Role Phone Riley Al MD Primary Care Provider Encounter Details Date Type Department Care Team (Late st Contact Info) Description 12/18/2022 Documentation Only [facility] [address] [place] [address] Niels Zambrano MD [address] [place] [address] Social History Tobacco Use Types [...] on filedocumented in this encounter Care Teams Machine Candle Molder Relationship Specialty Start Date End Date Riley Al MD PCP - General 12/29/18 documented as of this encounter
--- OUTSIDE RECORDS SUMMARY | 2024-11-22 10:28 | XMS_ITS | Encounter Summary ---
Author Organization [employer] Address [address] [facility] 7 [place] [address] Care Team Providers Care Value Advisor Name Role Phone Riley Al MD Primary Care Provider [phone]- [phone] Reason for Visit * Reason Onset Date Comments Med Refill 04/21/2024 Encounter Details Date Type Department Care Team (Late st Contact Info) Description 04/21/2024 Telephone [facility] MEDICINE [address] [place] [address] Riley Al MD [address] [place] [address] Med Refill Social History Tobacco Use Types [...] auto-injector To be sent to: [facility] [address] [place] [address] documented in this encounter Plan of Treatment Upcoming Encounters Date Type Department Care Team ([facility] st Contact Info) Description 12/28/2024 9:30 AM EST Office Visit [facility] OPTOMETRY [address] [place] [address] Sarai Leong, OD [address] [place] [address] 01/19/2025 10:30 AM EST Clinical Support [facility] CH[facility] MED & PEDS [address] [place] [address] Fabiola Max, RN [address] [place] [address] documented as of this encounter Visit Diagnoses Not on filedocumented in this encounter Additional Health Concerns Assessment Noted Time PHQ-9 Depression Total Score: 24 024 11:43 AM EST documented as of this encounter Care Teams Value Advisor Relationship Specialty Start Date End Date Riley Al MD [address] [place] [address] PCP - General Internal Medicine 04/03/18 documented as of this encounter
--- OUTSIDE RECORDS SUMMARY | 2024-11-22 10:28 | XMS_ITS | Encounter Summary ---
Author Organization [employer] Address 75 [facility] 7 [place] [address] Care Team Providers Care Fruit Thinner Machine Operator Name Role Phone Riley Al MD Primary Care Provider [phone]- [phone] Reason for Visit * Reason Onset Date Comments Med Refill 08/30/2022 Encounter Details Date Type Department Care Team ([facility] st Contact Info) Description 08/30/2022 Refill [facility] CHC MED & PEDS [address] [place] [address] Riley Al MD [address] [place], [place] [phone] Social History Tobacco Use Types Packs/Day Years [...] Miscellaneous Notes * Telephone Encounter - Angie Sorensen - 08/30/2022 3:32 PM EDT Tc from pt requesting medication refill on acetaminophen (Tylenol 8 Hour) 650 MG ER tablet documented in this encounter Plan of Treatment Upcoming Encounters Date Type Department Care Team (Late st Contact Info) Description 12/28/2024 9:30 AM EST Office Visit [facility] OPTOMETRY [address] [place] [address] Sarai Leong, OD [address] [place] [address] 01/19/2025 10:30 AM EST Clinical Support [facility] CHC MED & PEDS [address] [place] [address] Fabiola Max, RN [address] [place], [place] [phone] documented as of this encounter Visit Diagnoses Not on filedocumented in this encounter Additional Health Concerns Assessment Noted Time PHQ-9 Depression Total Score: 9 04/16/19 23 10:03 AM EST documented as of this encounter Care Teams Fruit Thinner Machine Operator Relationship Specialty Start Date End Date Riley Al MD [address] [place] [address] PCP - General Internal Medicine 04/03/18 documented as of this encounter
--- OUTSIDE RECORDS SUMMARY | 2024-11-22 10:28 | XMS_ITS | Encounter Summary ---
Author Organization [facility] Address [address] [place] [address] Phone Care Team Providers Care Ceramic Tile Installation Helper Name Role Phone Riley Al MD Primary Care Provider [phone] Encounter Details Date Type Department Care Team (Late st Contact Info) Description 03/15/2022 Documentation Only [facility] [place], [address] [place] [address] Radha Sin PA Social History Tobacco [...] on filedocumented in this encounter Care Teams Ceramic Tile Installation Helper Relationship Specialty Start Date End Date Riley Al MD PCP - General 12/29/18 documented as of this encounter
--- OUTSIDE RECORDS SUMMARY | 2024-11-22 10:28 | XMS_ITS | Clinical Summary ---
Author Organization [facility] [place], Address [address] [place] [address] [place] [address] Phone Care Team Providers Care Mini Lab Operator Name Role Phone Riley Al MD Primary Care Provider [phone] Allergies Active Allergy Reactions Criticality Noted Date Comments Aspirin 04/28/2019 Food 04/28/2019 Nuts, Oranges, Strawberries Latex 04/28/2019 Lisinopril 04/22/2006 cough Naproxen Other (see comments) 10/29/2013 Other 06/04/2022 Penicillin G Procaine Other (see comments) 02/06/2005 Penicillins Other (see comments) 03/24/2019 Salicylates Other (see comments) 02/06/2005 [place] (Diagnostic) 06/04/2022 Zolpidem Other (see comments) 12/14/2012 [...] Encounters Date Type Department Care Team Description 11/17/2024 4:50 PM EDT [facility] [address] [place] [address] Niels Zambrano MD Stage 3a chronic kidney disease (HCC) (Primary Dx) 08/24/2024 1:20 PM EDT Office [facility] [address] [place] [address] Niels Zambrano MD Stage 3a chronic kidney [...] 11/19/2018 12:00 PM EDT Plan of Treatment Health Maintenance Due Date Last Done Comments Breast Cancer Screening 1962 Pneumococcal Vaccine: 50+ Ye ars (1 of 2 - PCV) 1981 Colorectal Cancer Screening: Annual FOBT 2011 Colorectal Cancer Screening: Colonoscopy 2011 Colorectal Cancer Screening: Sigmoidoscopy 2011 Influenza Vaccine (#1) 2024 Hepatitis B Vaccine Aged Out No longe r eligible based on patient's age to complete this topic Insurance [facility] Care Dual SNP ([id number]) [place] [id number] Care Teams Mini Lab Operator Relationship Specialty Start Date End Date Riley Al MD PCP - General 12/29/18
--- OUTSIDE RECORDS SUMMARY | 2024-11-22 10:28 | XMS_ITS | Encounter Summary ---
Author Organization [employer] Address 75 [facility] 7t [place] [address] Care Team Providers Care Test Desk Operator Name Role Phone Riley Al MD Primary Care Provider [phone] [phone] Encounter Details Date Type Department Care Team ([facility] st Contact Info) Description 03/05/2024 Orders Only [facility] CH[facility] MED & PEDS [address] [place], [place] [phone] Riley Al MD [address] [place] [address] Essential hypertension (Primary Dx) Social History Tobacco [...] Description 12/28/2024 9:30 AM EST Office Visit [facility] OPTOMETRY [address] [place] [address] Tarka, Sarai, OD [address] [place] [address] 01/19/2025 10:30 AM EST Clinical Support [facility] MED & PEDS [address] [place] [address] Fabiola Max, RN [address] [place] [address] documented as of this encounter Visit Diagnoses Diagnosis Essential hypertension- Primary Unspecified essential hypertension documented in this encounter Additional Health Concerns Assessment Noted Time PHQ-9 Depression Total Score: 24 024 11:43 AM EST documented as of this encounter Care Teams Test Desk Operator Relationship Specialty Start Date End Date Riley Al MD [address] [place] [address] PCP - General Internal Medicine 04/03/18 documented as of this encounter
--- OUTSIDE RECORDS SUMMARY | 2024-11-22 10:28 | XMS_ITS | Encounter Summary ---
Author Organization [facility] Address [address] [place] [address] Phone Care Team Providers Care Transit Authority Police Officer Name Role Phone Riley Al MD Primary Care Provider Reason for Visit * Reason Comments Med Refill Encounter Details Date Type Department Care Team (Late st Contact Info) Description 10/03/2021 Refill [facility] [place], [address] [place] [address] Radha Sin PA Social History [...] on filedocumented in this encounter Care Teams Transit Authority Police Officer Relationship Specialty Start Date End Date Riley Al MD PCP - General 12/29/18 documented as of this encounter
--- OUTSIDE RECORDS SUMMARY | 2024-11-22 10:28 | XMS_ITS | Encounter Summary ---
Author Organization [employer] Address [address] [facility] [address] 7t [place] [address] Care Team Providers Care Sound Art Instructor Name Role Phone Riley Al MD Primary Care Provider [phone]- [phone] Encounter Details Date Type Department Care Team ([facility] st Contact Info) Description 09/04/2022 Orders Only [facility] CHC MED & PEDS [address] [place], [place] [phone] Riley Al MD [address] [place] [address] SOB (shortness of breath) (Primary Dx) Social [...] Description 12/28/2024 9:30 AM EST Office Visit [facility] OPTOMETRY [address] [place], [place] [phone] Sarai Leong, OD [address] [place] [address] 01/19/2025 10:30 AM EST Clinical Support [facility] CH[facility] MED & PEDS [address] [place], [place] [phone] Fabiola Max, JOE [address] [place], [place] [phone] documented as of this encounter Visit Diagnoses Diagnosis SOB (shortness of breath)- Primary Shortness of breath documented in this encounter Additional Health Concerns Assessment Noted Time PHQ-9 Depression Total Score: 9 04/16/19 23 10:03 AM EST documented as of this encounter Care Teams Sound Art Instructor Relationship Specialty Start Date End Date Riley Al MD [address] [place], [place] [phone] PCP - General Internal Medicine 04/03/18 documented as of this encounter
--- OUTSIDE RECORDS SUMMARY | 2024-11-22 10:28 | XMS_ITS | Encounter Summary ---
Author Organization [employer] Address [address] [facility] 7 [place] [address] Care Team Providers Care Automobile Tire Builder Name Role Phone Riley Al MD Primary Care Provider [phone]- [phone] Reason for Visit * Reason Onset Date Comments Med Refill 04/09/2024 Encounter Details Date Type Department Care Team ([facility] st Contact Info) Description 04/09/2024 Refill [facility] MED & PEDS [address] [place] [address] Riley Al MD [address] [place], [place] [phone] Morbid obesity (CMS/HCC) Social History Tobacco Use [...] Description 12/28/2024 9:30 AM EST Office Visit [facility] OPTOMETRY [address] [place] [address] Sarai Leong, OD [address] [place] [address] 01/19/2025 10:30 AM EST Clinical Support [facility] CH[facility] MED & PEDS [address] [place] [address] Fabiola Max, JOE [address] [place] [address] documented as of this encounter Visit Diagnoses Diagnosis Morbid obesity (CMS/HCC) (HCC) Morbid obesity documented in this encounter Additional Health Concerns Assessment Noted Time PHQ-9 Depression Total Score: 24 024 11:43 AM EST documented as of this encounter Care Teams Automobile Tire Builder Relationship Specialty Start Date End Date Riley Al MD [address] [place] [address] PCP - General Internal Medicine 04/03/18 documented as of this encounter
--- OUTSIDE RECORDS SUMMARY | 2024-11-22 10:28 | XMS_ITS | Encounter Summary ---
Author Organization [facility] Address [address] [place] [address] Phone Care Team Providers Care Corporate Consultant Name Role Phone Riley Al MD Primary Care Provider Encounter Details Date Type Department Care Team (Late st Contact Info) Description 03/14/2022 Documentation Only [facility] [place], [address] [place] [address] Radha Sin PA Social History Tobacco [...] on filedocumented in this encounter Care Teams Corporate Consultant Relationship Specialty Start Date End Date Riley Al MD PCP - General 12/29/18 documented as of this encounter
--- OUTSIDE RECORDS SUMMARY | 2024-11-22 10:28 | XMS_ITS | Encounter Summary ---
Author Organization [facility], Address PO [facility] [address] [place] [address] Phone Care Team Providers Care Avionics Systems Integration Specialist Name Role Phone Riley Al MD Primary Care Provider Reason for Visit * Reason Comments Med Refill Encounter Details Date Type Department Care Team (Late st Contact Info) Description 02/12/2021 Refill [facility] [address] [place] [address] Radha Sin PA Social History [...] on filedocumented in this encounter Care Teams Avionics Systems Integration Specialist Relationship Specialty Start Date End Date Riley Al MD PCP - General 12/29/18 documented as of this encounter
--- OUTSIDE RECORDS SUMMARY | 2024-11-22 10:28 | XMS_ITS | Encounter Summary ---
Author Organization [facility] Address [address] [place] [address] Phone Care Team Providers Care Hand Counter Name Role Phone Riley Al MD Primary Care Provider Reason for Visit * Reason Comments Med Refill Encounter Details Date Type Department Care Team (Late st Contact Info) Description 09/26/2021 Refill [facility] [place], [address] [place] [address] Radha Sin PA Social History [...] on filedocumented in this encounter Care Teams Hand Counter Relationship Specialty Start Date End Date Riley Al MD PCP - General 12/29/18 documented as of this encounter
--- OUTSIDE RECORDS SUMMARY | 2024-11-22 10:28 | XMS_ITS | Encounter Summary ---
Author Organization [employer] Address [address] [facility] 7t [place] [address] Care Team Providers Care Privacy Director Name Role Phone Riley Al MD Primary Care Provider [phone]- [phone] Reason for Visit * Reason Comments Med Refill Encounter Details Date Type Department Care Team ([facility] Contact Info) Description 04/09/2022 Refill [facility] CHC MED & PEDS [address] [place], [place] [phone] Riley Al MD [address] [place] [address] Chronic pain syndrome; Primary insomnia; Vitamin D [...] Description 12/28/2024 9:30 AM EST Office Visit [facility] OPTOMETRY [address] [place], [place] [phone] Sarai Leong, OD [address] [place] [address] 01/19/2025 10:30 AM EST Clinical Support [facility] CHC MED & PEDS [address] [place], [place] [phone] Fabiola Max, JOE [address] [place] [address] documented as of this encounter Visit Diagnoses Diagnosis Chronic pain syndrome Primary insomnia Persistent disorder of initiating or maintaining sleep Vitamin D deficiency Hypercholesterolemia Pure hypercholesterolemia Other chronic gastritis without hemorrhage Essential hypertension Unspecified essential hypertension Hypomagnesemia Disorders of magnesium metabolism Dizziness Dizziness and giddiness Acquired hypothyroidism Unspecified hypothyroidism documented in this encounter Care Teams Privacy Director Relationship Specialty Start Date End Date Riley Al MD [address] [place] [address] PCP - General Internal Medicine 04/03/18 documented as of this encounter
--- OUTSIDE RECORDS SUMMARY | 2024-11-22 10:28 | XMS_ITS | Encounter Summary ---
Author Organization [employer] Address 75 [facility] 7 [place] [address] Care Team Providers Care Health Advocate Name Role Phone Riley Al MD Primary Care Provider +1- [phone] Reason for Visit * Reason Onset Date Comments Med Refill 07/13/2024 Encounter Details Date Type Department Care Team (Late st Contact Info) Description 07/13/2024 Refill [facility] MEDICINE [address] [place] [address] Riley Al MD [address] [place] [address] Idiopathic osteoarthritis Social History Tobacco Use Types [...] Office Visit [facility] OPTOMETRY [address] [place] [address] TarkaSarai, OD 267 [place] [address] 01/19/2025 10:30 AM EST Clinical Support [facility] CHC MED & PEDS [address] [place] [address] Fabiola Max, JOE [address] [place] [address] documented as of this encounter Visit Diagnoses Diagnosis Idiopathic osteoarthritis Osteoarthrosis, unspecified whether generalized or localized, unspecified site documented in this encounter Additional Health Concerns Assessment Noted Time PHQ-9 Depression Total Score: 24 024 11:43 AM EST documented as of this encounter Care Teams Health Advocate Relationship Specialty Start Date End Date Riley Al MD [address] [place] [address] PCP - General Internal Medicine 04/03/18 documented as of this encounter
--- OUTSIDE RECORDS SUMMARY | 2024-11-22 10:28 | XMS_ITS | Encounter Summary ---
Author Organization [facility] Address [address] [place] [address] Phone Care Team Providers Care Machine Taper Name Role Phone Riley Al MD Primary Care Provider Reason for Visit * Reason Comments Med Refill Encounter Details Date Type Department Care Team (Late st Contact Info) Description 08/01/2021 Refill [facility] [place], [address] [place] [address] Radha Sin PA Social History [...] filedocumented in this encounter Care Teams Machine Taper Relationship Specialty Start Date End Date Riley Al MD PCP - General 12/29/18 documented as of this encounter
--- OUTSIDE RECORDS SUMMARY | 2024-11-22 10:28 | XMS_ITS | Encounter Summary ---
Author Organization [employer] Address [address] [facility] 7 [place] [address] Care Team Providers Care Mechanical Design Engineer Name Role Phone Riley Al MD Primary Care Provider +1- [phone] Reason for Visit * Reason Onset Date Comments Durable Medical Equipment 03/04/2024 Encounter Details Date Type Department Care Team (Late st Contact Info) Description 03/04/2024 Telephone [facility] MEDICINE [address] [place] [address] Riley Al MD [address] [place] [address] Durable Medical Equipment Social History Tobacco Use [...] needs a new prescription sent to fax number:[phone] ([facility]) Pt is also requesting wegovy weight management injections for a PA. documented in this encounter Plan of Treatment Upcoming Encounters Date Type Department Care Team (Late st Contact Info) Description 12/28/2024 9:30 AM EST Office Visit [facility] OPTOMETRY [address] [place] [address] Sarai Leong, OD [address] [place] [address] 01/19/2025 10:30 AM EST Clinical Support [facility] CHC MED & PEDS [address] [place] [address] Fabiola Max, JOE [address] [place] [address] documented as of this encounter Visit Diagnoses Not on filedocumented in this encounter Additional Health Concerns Assessment Noted Time PHQ-9 Depression Total Score: 24 024 11:43 AM EST documented as of this encounter Care Teams Mechanical Design Engineer Relationship Specialty Start Date End Date Riley Al MD [address] [place] [address] PCP - General Internal Medicine 04/03/18 documented as of this encounter
--- OUTSIDE RECORDS SUMMARY | 2024-11-22 10:28 | XMS_ITS | Encounter Summary ---
Author Organization [facility] Address [address] [place] [address] Phone Care Team Providers Care Counter Stacker Name Role Phone Riley Al MD Primary Care Provider Encounter Details Date Type Department Care Team (Late st Contact Info) Description 06/17/2022 Documentation Only [facility] [address] [place] [address] Niels Zambrano MD [address] [place] [address] Social History Tobacco Use Types [...] on filedocumented in this encounter Care Teams Counter Stacker Relationship Specialty Start Date End Date Riley Al MD PCP - General 12/29/18 documented as of this encounter
--- OUTSIDE RECORDS SUMMARY | 2024-11-22 10:28 | XMS_ITS | Encounter Summary ---
Author Organization [employer] Address 75 [facility] 7 [place] [address] Care Team Providers Care Immigration Attorney Name Role Phone Riley Al MD Primary Care Provider [phone]- [phone] Reason for Visit * Reason Onset Date Comments Med Refill 07/13/2024 Encounter Details Date Type Department Care Team ([facility] st Contact Info) Description 07/13/2024 Refill [facility] CH[facility] MED & PEDS [address] [place] [address] Riley Al MD [address] [place], [place] [phone] Acute left-sided low back pain with left-sided [...] Description 12/28/2024 9:30 AM EST Office Visit [facility] OPTOMETRY [address] [place] [address] Sarai Leong, OD [address] [place] [address] 01/19/2025 10:30 AM EST Clinical Support [facility] CH[facility] MED & PEDS [address] [place] [address] Fabiola Max, JOE [address] [place] [address] documented as of this encounter Visit Diagnoses Diagnosis Acute left-sided low back pain with left-sided sciatica Chronic pain syndrome documented in this encounter Additional Health Concerns Assessment Noted Time PHQ-9 Depression Total Score: 24 024 11:43 AM EST documented as of this encounter Care Teams Immigration Attorney Relationship Specialty Start Date End Date Riley Al MD [address] [place] [address] PCP - General Internal Medicine 04/03/18 documented as of this encounter
--- OUTSIDE RECORDS SUMMARY | 2024-11-22 10:28 | XMS_ITS | Encounter Summary ---
Author Organization [employer] Address [address] [facility] 7 [place] [address] Care Team Providers Care Childcare Center Administrator Name Role Phone Riley Al MD Primary Care Provider +1- [phone] Reason for Visit * Reason Onset Date Comments Med Refill 06/07/2024 Encounter Details Date Type Department Care Team (Late st Contact Info) Description 06/07/2024 Telephone [facility] MEDICINE [address] [place] [address] Riley Al MD [address] [place] [address] Med Refill Social History Tobacco Use Types [...] tablet To be sent to: [facility] [address] [place] [address] documented in this encounter Plan of Treatment Upcoming Encounters Date Type Department Care Team (Late st Contact Info) Description 12/28/2024 9:30 AM EST Office Visit [facility] OPTOMETRY [address] [place] [address] Sarai Leong, OD [address] [place] [address] 01/19/2025 10:30 AM EST Clinical Support [facility] MED & PEDS [address] [place] [address] Fabiola Max, RN [address] [place] [address] documented as of this encounter Visit Diagnoses Not on filedocumented in this encounter Additional Health Concerns Assessment Noted Time PHQ-9 Depression Total Score: 24 024 11:43 AM EST documented as of this encounter Care Teams Childcare Center Administrator Relationship Specialty Start Date End Date Riley Al MD [address] [place] [address] PCP - General Internal Medicine 04/03/18 documented as of this encounter
--- OUTSIDE RECORDS SUMMARY | 2024-11-22 10:28 | XMS_ITS | Encounter Summary ---
Author Organization [employer] Address [address] [facility] 7 [place] [address] Care Team Providers Care Trimmer Buffing Wheel Name Role Phone Riley Al MD Primary Care Provider [phone]- [phone] Reason for Visit * Reason Onset Date Comments Medication Question 07/13/2024 Encounter Details Date Type Department Care Team ([facility] st Contact Info) Description 07/13/2024 Telephone [facility] MEDICINE [address] [place] [address] Riley Al MD [address] [place] [address] Medication Question Social History Tobacco Use Types [...] - 07/13/2024 9:41 AM EDT Tc from [facility] requesting new script. Medication: metaxalone (Skelaxin) 800 MG tablet Directions: 1 tablet by mouth 3 times a day 28 days supply, 84 pills. To be sent to: [facility] [address] [place] [address] also requesting alternative medication due to insurance denial coverage zepbound. See denial letter on 07/12. documented in this encounter Plan of Treatment Upcoming Encounters Date Type Department Care Team ([facility] st Contact Info) Description 12/28/2024 9:30 AM EST Office Visit [facility] OPTOMETRY [address] [place] [address] Sarai Leong, OD [address] [place] [address] 01/19/2025 10:30 AM EST Clinical Support [facility] MED & PEDS [address] [place] [address] Fabiola Max, JOE [address] [place] [address] documented as of this encounter Visit Diagnoses Not on filedocumented in this encounter Additional Health Concerns Assessment Noted Time PHQ-9 Depression Total Score: 24 024 11:43 AM EST documented as of this encounter Care Teams Trimmer Buffing Wheel Relationship Specialty Start Date End Date Riley Al MD [address] [place] [address] PCP - General Internal Medicine 04/03/18 documented as of this encounter
--- OUTSIDE RECORDS SUMMARY | 2024-11-22 10:28 | XMS_ITS | Encounter Summary ---
Author Organization [employer] Address [address] [facility] 7 [place] [address] Care Team Providers Care Ship Ceiler Name Role Phone Riley Al MD Primary Care Provider [phone]- [phone] Reason for Visit * Reason Onset Date Comments Call Back Request 06/07/2024 Encounter Details Date Type Department Care Team ([facility] st Contact Info) Description 06/07/2024 Telephone [facility] MEDICINE [address] [place] [address] Riley Al MD 505 [place] [address] Call Back Request Social History Tobacco Use [...] Telephone Encounter - Chet Sinha - 06/07/2024 9:07 AM EDT Tc from pt requesting a call back from [employer] regarding a [employer] sensor. Contact pt at [phone] documented in this encounter Plan of Treatment Upcoming Encounters Date Type Department Care Team ([facility] st Contact Info) Description 12/28/2024 9:30 AM EST Office Visit [facility] OPTOMETRY [address] [place] [address] Sarai Leong, OD [address] [place] [address] 01/19/2025 10:30 AM EST Clinical Support [facility] CH[facility] MED & PEDS [address] [place], [place] [phone] Fabiola Max, RN [address] [place] [address] documented as of this encounter Visit Diagnoses Not on filedocumented in this encounter Additional Health Concerns Assessment Noted Time PHQ-9 Depression Total Score: 24 024 11:43 AM EST documented as of this encounter Care Teams Ship Ceiler Relationship Specialty Start Date End Date Riley Al MD [address] [place] [address] PCP - General Internal Medicine 04/03/18 documented as of this encounter
--- OUTSIDE RECORDS SUMMARY | 2024-11-22 10:28 | XMS_ITS | Encounter Summary ---
Author Organization [facility] Address [address] [place] [address] Phone Care Team Providers Care Ply Bander Name Role Phone Riley Al MD Primary Care Provider Encounter Details Date Type Department Care Team (Late st Contact Info) Description 07/09/2022 Documentation Only [facility] [address] [place] [address] Niels Zambrano MD [address] [place] [address] Social History Tobacco Use Types [...] on filedocumented in this encounter Care Teams Ply Bander Relationship Specialty Start Date End Date Riley Al MD PCP - General 12/29/18 documented as of this encounter
--- OUTSIDE RECORDS SUMMARY | 2024-11-22 10:28 | XMS_ITS | Encounter Summary ---
Author Organization [facility] Address [address] [place] [address] Phone Care Team Providers Care Community Health Promoter Name Role Phone Riley Al MD Primary Care Provider +1- [phone] Reason for Visit * Reason Comments Med Refill Encounter Details Date Type Department Care Team (Late st Contact Info) Description 09/05/2021 Refill [facility] [place], [address] [place] [address] Radha Sin PA Social History [...] on filedocumented in this encounter Care Teams Community Health Promoter Relationship Specialty Start Date End Date Riley Al MD PCP - General 12/29/18 documented as of this encounter
--- OUTSIDE RECORDS SUMMARY | 2024-11-22 10:28 | XMS_ITS | Encounter Summary ---
Author Organization [facility] Address [address] [place] [address] Phone Care Team Providers Care Line Construction Supervisor Name Role Phone Riley Al MD Primary Care Provider Reason for Visit * Reason Comments Med Refill Encounter Details Date Type Department Care Team (Late st Contact Info) Description 08/29/2021 Refill [facility], [address] [place] [address] Radha Sin PA Social History [...] on filedocumented in this encounter Care Teams Line Construction Supervisor Relationship Specialty Start Date End Date Riley Al MD PCP - General 12/29/18 documented as of this encounter
--- OUTSIDE RECORDS SUMMARY | 2024-11-22 10:28 | XMS_ITS | Encounter Summary ---
Author Organization [employer] Address [address] [facility] 7t [place] [address] Care Team Providers Care Paver Operator Name Role Phone Riley Al MD Primary Care Provider [phone] [phone] Encounter Details Date Type Department Care Team ([facility] st Contact Info) Description 07/23/2024 Orders Only [facility] CH[facility] MED & PEDS [address] [place], [place] [phone] Riley Al MD [address] [place] [address] Acute left-sided low back pain with left-sided [...] Description 12/28/2024 9:30 AM EST Office Visit [facility] OPTOMETRY [address] [place] [address] Sarai Leong, OD [address] [place] [address] 01/19/2025 10:30 AM EST Clinical Support [facility] MED & PEDS [address] [place] [address] Fabiola Max, JOE 505 [place] [address] documented as of this encounter Visit Diagnoses Diagnosis Acute left-sided low back pain with left-sided sciatica Chronic pain syndrome documented in this encounter Additional Health Concerns Assessment Noted Time PHQ-9 Depression Total Score: 24 024 11:43 AM EST documented as of this encounter Care Teams Paver Operator Relationship Specialty Start Date End Date Riley Al MD [address] [place] [address] PCP - General Internal Medicine 04/03/18 documented as of this encounter
--- OUTSIDE RECORDS SUMMARY | 2024-11-22 10:28 | XMS_ITS | Encounter Summary ---
Author Organization [employer] Address [address] [facility] 7t [place] [address] Care Team Providers Care Ceramic Maker Demonstrator Name Role Phone Riley Al MD Primary Care Provider [phone]- [phone] Reason for Visit * Reason Comments Med Refill Encounter Details Date Type Department Care Team ([facility] Contact Info) Description 04/11/2022 Refill [facility] CH[facility] MED & PEDS [address] [place], [place] [phone] Riley Al MD [address] [place] [address] Dizziness Social History Tobacco Use Types Packs/Day [...] Upcoming Encounters Date Type Department Care Team ([facility] Contact Info) Description 12/28/2024 9:30 AM EST Office Visit [facility] OPTOMETRY [address] [place] [address] Salo Sarai, OD [address] [place] [address] 01/19/2025 10:30 AM EST Clinical Support [facility] CH[facility] MED & PEDS [address] [place], [place] [phone] Fabiola Max, RN [address] [place], [place] [phone] documented as of this encounter Visit Diagnoses Diagnosis Dizziness Dizziness and giddiness documented in this encounter Care Teams Ceramic Maker Demonstrator Relationship Specialty Start Date End Date Riley Al MD [address] [place], [place] [phone] PCP - General Internal Medicine 04/03/18 documented as of this encounter
--- OUTSIDE RECORDS SUMMARY | 2024-11-22 10:28 | XMS_ITS | Encounter Summary ---
Author Organization [facility] Address [address] [place] [address] Phone Care Team Providers Care Research Archaeologist Name Role Phone Riley Al MD Primary Care Provider Encounter Details Date Type Department Care Team (Late st Contact Info) Description 12/27/2022 Documentation Only [facility] [address] [place] [address] Niels Zambrano MD [address] [place] [address] Social History Tobacco Use Types [...] on filedocumented in this encounter Care Teams Research Archaeologist Relationship Specialty Start Date End Date Riley Al MD PCP - General 12/29/18 documented as of this encounter
[2024-11-22 14:38] LABS: Anion Gap 10 (12-20); Blood Urea Nitrogen 15 mg/dL (9-16); Calcium 9.9 mg/dL (8.4-10.2); Carbon Dioxide 27 mmol/L (22-29); Chloride 107 mmol/L (96-108); Cholesterol 177 mg/dL (<200); Estimated Glomerular Filt Rate 52; HDL Cholesterol 83 mg/dL (>40); Potassium 4.2 mmol/L (3.3-5.1); Sodium 140 mmol/L (135-145); Triglycerides 102 mg/dL (<150)
[2024-11-23 05:54] LABS: HIV Num 1 0.05 S/CO (0.00-0.99)
== END 2024-11-22 09:36 | disposition home or self-care (01) ==
LOC: HO.CHCLDS 09:35
PROVIDERS: Visit Provider Internal Medicine
DX: E78.00 Pure hypercholesterolemia, unspecified (principal); E03.9 Hypothyroidism, unspecified; I10 Essential (primary) hypertension
CPT/HCPCS: 36415; 80048; 80061; 84443; 87389